=== PATIENT | female | born 1950 | race Caucasian/White ===

== ENCOUNTER → 2017-02-21 | Outpatient (REF) | payer MEDICARE, MEDICAID ==
[~2017-02-21] MED LIST: ALLO300T; ALPR0.25; ALPR0.25 PO; ASPI325T; ASPI81TA18 PO; ATEN100T; ATEN50TA2; ATOR40TA75; ATOR40TA75 PO; BUME1TA PO; BUME1TAB27 PO; CALC600T10; CARV6.25; CARV6.25 PO; COLA100C2; COLC0.6T; COUM1TAB17 PO; DIOV320T; FAMO1TAB11 PO; FAMO1TAB25 PO; FELDENE; FELO10TA; FERR325T; FLON0.05; FLON1SPR; FLUT1SPR2; FURO40TA2; HUMA75VL; INSUHUMDS SC; INSULANT; INSULANT SC; IRON65TA PO; ISOS60TA2; ISOS60TA2 PO; MAGN400T5 PO; METO5TA; METO5TA PO; MICR10CA PO; NITR0.4S; PANT40TA2 PO; PLAV75TA2; POTA10CA PO; POTA10TA67; ROSU10TA; THERGRAN; WARF-20; WARF4TAB52; ZYLO300T4 PO; glucovance
[2017-02-21 19:52] LABS: ALBUMIN 3.5 GM/DL (3.2-5.2); CALCIUM LEVEL 10.1 MG/DL (8.8-10.2); CREATININE FOR GFR 1.12 MG/DL (0.55-1.02); GLOMERULAR FILTRATION RATE 52.1 (>45); MAGNESIUM LEVEL 2.3 MG/DL (1.8-2.4); PHOSPHORUS LEVEL 3.4 MG/DL (2.5-4.9); POTASSIUM SERUM 3.6 MEQ/L (3.5-5.1)
== END ==
LOC: M SFHCCLAY 12:08
PROVIDERS: ATTEND Family Medicine
DX: I48.2 Chronic atrial fibrillation (principal); I27.81 Cor pulmonale (chronic); E83.42 Hypomagnesemia; E87.6 Hypokalemia; E11.9 Type 2 diabetes mellitus without complications; Z95.5 Presence of coronary angioplasty implant and graft
CPT/HCPCS: 80061; 80069; 83735; G0463

== ENCOUNTER 2017-03-29 12:15 | Inpatient (IN) | payer MEDICARE, MEDICAID ==
[~2017-03-29] VITALS: Ht 160 cm; Wt 107.7 kg
[~2017-03-29 12:15] MED LIST changes: -ALPR0.25; -ALPR0.25 PO; -ASPI81TA18 PO; -ATOR40TA75; -ATOR40TA75 PO; -BUME1TA PO; -BUME1TAB27 PO; -CARV6.25; -CARV6.25 PO; -COUM1TAB17 PO; -FAMO1TAB11 PO; -FAMO1TAB25 PO; -FLON1SPR; -FLUT1SPR2; -INSUHUMDS SC; -INSULANT SC; -IRON65TA PO; -ISOS60TA2; -ISOS60TA2 PO; -MAGN400T5 PO; -METO5TA; -METO5TA PO; -MICR10CA PO; -PANT40TA2 PO; -POTA10CA PO; -POTA10TA67; -WARF-20; -WARF4TAB52; -ZYLO300T4 PO
[2017-03-29] MEDS ORDERED: ATOR40TA75 (12:45)
[2017-03-29] MEDS ORDERED: BUME1TAB27 PO (12:45)
[2017-03-29] MEDS ORDERED: WARF4TAB52 (12:45)
[2017-03-29] MEDS ORDERED: CARV6.25 (12:45)
[2017-03-29] MEDS ORDERED: METO5TA (12:45)
[2017-03-29] MEDS ORDERED: POTA10TA67 (12:45)
[2017-03-29] MEDS ORDERED: FLUT1SPR2 (12:45)
[2017-03-29] MEDS ORDERED: FAMO1TAB25 PO (12:45)
[2017-03-29] MEDS ORDERED: ALPR0.25 (12:45)
[2017-03-29] MEDS ORDERED: ISOS60TA2 (12:45)
[2017-03-29] MEDS ORDERED: WARF-20 (12:45)
[2017-03-29 12:51] LABS: BASO # 0.1 K/mm3 (0.0-0.2); BASO % 0.7 % (0.0-1.0); EOS # 0.2 K/mm3 (0.0-0.50); EOS % 2.5 % (0.0-3.0); LARGE UNSTAINED CELL # 0.1 K/mm3 (0.0-0.4); LARGE UNSTAINED CELL % 1.3 % (0.0-4.0); LYMPH # 1.6 K/mm3 (1.5-4.5); LYMPH % 15.7 % (24.0-44.0); MEAN CORPUSCULAR HEMOGLOBIN 26.6 pg (27.0-33.0); MEAN CORPUSCULAR HGB CONC 29.1 g/dl (32.0-36.5); MEAN CORPUSCULAR VOLUME 91.4 fl (80.0-96.0); MONO # 0.5 K/mm3 (0.0-0.8); MONO % 5.5 % (0.0-5.0); NEUTROPHILS # 6.9 K/mm3 (1.8-7.7); NEUTROPHILS % 74.3 % (36.0-66.0); PLATELET COUNT, AUTOMATED 443 k/mm3 (150-450); RED CELL DISTRIBUTION WIDTH 21.4 % (11.5-14.5); WHITE BLOOD COUNT 9.3 K/mm3 (4.0-10.0)
[2017-03-29 12:52] LABS: INR 2.59
[2017-03-29 13:09] LABS: ADD MORPHOLOGY? YES; ANISOCYTOSIS 2+; HYPOCHROMASIA 1+
[2017-03-29 13:12] LABS: ALBUMIN 3.1 GM/DL (3.2-5.2); ALBUMIN/GLOBULIN RATIO 0.97 (1.00-1.93); BILIRUBIN,DIRECT 0.2 MG/DL (0.0-0.2); BILIRUBIN,TOTAL 0.3 MG/DL (0.2-1.0); CALCIUM LEVEL 8.8 MG/DL (8.8-10.2); CREATININE FOR GFR 1.64 MG/DL (0.55-1.02); GLOMERULAR FILTRATION RATE 33.6 (>45); POTASSIUM SERUM 3.6 MEQ/L (3.5-5.1); TOTAL PROTEIN 6.3 GM/DL (6.4-8.2)
--- NOTE | 2017-03-29 13:24 | REP ---
Portable chest x-ray: Single view. History: Chest pain. Comparison study: May 09, 2012. Findings: EKG monitoring electrodes overlie the chest. The heart is moderately enlarged unchanged. Pulmonary vasculature is somewhat cephalized. The pleural angles are sharp. There is no evidence of infiltrate, pleural effusion, or pulmonary edema. Impression: Moderate cardiomegaly and pulmonary vascular cephalization. Mild CHF pattern. Signed by Broderick Ennis MD 03/29/2017 03:50 P
[2017-03-29 15:22] LABS: PERCENT SATURATION 4.7 % (13.2-45.0)
[2017-03-29] MEDS ORDERED: GI COCKTAIL 50ML BTL(HYOSCYAMINE/MAALOX/LIDOCAINE VISCOUS)(1:3:1) PO ONE (15:45)
--- NOTE | 2017-03-29 16:04 | HPE ---
DATE OF ADMISSION: 03/29/2017 History and physical generated through office E-Clinical works record and a copy of this has been placed on the patient's chart.
[2017-03-29] MEDS ORDERED: FLON1SPR (16:57)
[2017-03-29] MEDS ORDERED: ATOR40TA75 PO (16:57)
[2017-03-29] MEDS ORDERED: ISOS60TA2 PO (16:57)
[2017-03-29] MEDS ORDERED: POTA10CA PO (16:57)
[2017-03-29] MEDS ORDERED: MAGN400T5 PO (16:57)
[2017-03-29] MEDS ORDERED: BUME1TA PO (16:57)
[2017-03-29] MEDS ORDERED: INSUHUMDS SC (16:57)
[2017-03-29] MEDS ORDERED: FAMO1TAB11 PO (16:57)
[2017-03-29] MEDS ORDERED: ZYLO300T4 PO (16:57)
[2017-03-29] MEDS ORDERED: METO5TA PO (16:57)
[2017-03-29] MEDS ORDERED: COUM1TAB17 PO (16:57)
[2017-03-29] MEDS ORDERED: INSULANT SC (16:57)
[2017-03-29] MEDS ORDERED: CARV6.25 PO (16:57)
[2017-03-29] MEDS ORDERED: IRON65TA PO (16:57)
[2017-03-29] MEDS ORDERED: ALPR0.25 PO (16:57)
[2017-03-29] MEDS ORDERED: WARFARIN SOD 5 MG TAB PO SCH (17:00)
[2017-03-29] MEDS ORDERED: GLUCOSE 4 GM CHEW TABLET PO PRN (17:30)
[2017-03-29] MEDS ORDERED: GLUCAGON FOR INJ 1 MG VIAL (J1610) SC PRN (17:30)
[2017-03-29] MEDS ORDERED: DEXTROSE 50% 50 ML SYRINGE IV PRN (17:30)
[2017-03-29 19:30] VITALS: BP 131/68
[2017-03-29] MEDS: HumaLOG INSULIN (NovoLOG) PER UNIT SC SCH ×2 (19:52→21:49)
[2017-03-29] MEDS: LEVEMIR (INSULIN DETEMIR) 1 UNITS/0.01ML SC SCH (21:40)
[2017-03-29] MEDS: MAGNESIUM OXIDE 400 MG TAB (MAG-OX) PO SCH (21:41)
[2017-03-29] MEDS: ATORVASTATIN 20 MG TAB PO SCH (21:41)
[2017-03-29] MEDS: ALLOPURINOL 300 MG TAB PO SCH (21:41)
[2017-03-29] MEDS: ISOSORBIDE MON. (IMDUR) 60 MG XR TAB PO SCH (21:42)
[2017-03-29] MEDS: metOLazone 5 MG TAB PO SCH (21:42)
[2017-03-29] MEDS: BUMETANIDE 1 MG TAB PO SCH (21:42)
[2017-03-29] MEDS: CARVedilol 6.25 MG TAB PO SCH (21:43)
[2017-03-29] MEDS: FERROUS SULFATE 325MG TAB PO SCH (21:43)
[2017-03-29] MEDS: POTASSIUM CHLORIDE 10 MEQ SR TABLET PO SCH (21:48)
[2017-03-30 04:00] VITALS: BP 140/66
[2017-03-30] MEDS: HumaLOG INSULIN (NovoLOG) PER UNIT SC SCH ×4 (07:30→21:00)
--- NOTE | 2017-03-30 07:46 | ECGEPIP ---
Stationary ECG Study [facility] - ED Test Date: 2017-03-29 Pat Name: WALLACE TINEO Department: Room: - Gender: F Erosion Control Specialist: JT : 1950 Requested By: Oralia Palacio Order Number: [id number] Reading MD: Oralia Palacio Measurements Intervals [place] Rate: 66 P: OK: 0 QRS: -9 QRSD: 92 T: 14 QT: 433 QTc: 457 Interpretive Statements ATRIAL FLUTTER/FIB MODERATE ST DEPRESSION NO PRIOR FOR COMPARISON Electronically Signed On 03-30-2017 7:46:44 EDT by Oralia Palacio
[2017-03-30] MEDS: LEVEMIR (INSULIN DETEMIR) 1 UNITS/0.01ML SC SCH ×2 (09:00→21:11)
[2017-03-30] MEDS: metOLazone 5 MG TAB PO SCH ×2 (09:02→21:09)
[2017-03-30] MEDS: MAGNESIUM OXIDE 400 MG TAB (MAG-OX) PO SCH ×2 (09:02→21:09)
[2017-03-30] MEDS: BUMETANIDE 1 MG TAB PO SCH ×2 (09:02→21:05)
[2017-03-30] MEDS: ISOSORBIDE MON. (IMDUR) 60 MG XR TAB PO SCH ×2 (09:03→21:05)
[2017-03-30] MEDS: FAMOTIDINE 20 MG TAB PO SCH (09:03)
[2017-03-30] MEDS: CARVedilol 6.25 MG TAB PO SCH ×2 (09:03→21:04)
[2017-03-30] MEDS: POTASSIUM CHLORIDE 10 MEQ SR TABLET PO SCH ×2 (09:03→21:09)
[2017-03-30 09:26] LABS: MEAN CORPUSCULAR HEMOGLOBIN 27.3 pg (27.0-33.0); MEAN CORPUSCULAR HGB CONC 30.3 g/dl (32.0-36.5); RED CELL DISTRIBUTION WIDTH 21.6 % (11.5-14.5); WHITE BLOOD COUNT 9.9 K/mm3 (4.0-10.0)
[2017-03-30 09:36] LABS: INR 2.12
[2017-03-30 09:59] LABS: CALCIUM LEVEL 9.2 MG/DL (8.8-10.2); CREATININE FOR GFR 1.51 MG/DL (0.55-1.02); GLOMERULAR FILTRATION RATE 36.9 (>45); POTASSIUM SERUM 4.6 MEQ/L (3.5-5.1)
[2017-03-30] MEDS ORDERED: BUME1TA PO (11:56)
--- NOTE | 2017-03-30 12:34 | DSES ---
DATE OF ADMISSION: 03/29/2017 DATE OF DISCHARGE: 03/30/17 PRIMARY CARE PROVIDER: Dr. Tr Malik. This is a 66-year-old female who presented to [facility] emergency department (ED) for atypical chest pain. The patient was found to have some significant anemia with a hemoglobin of 7.3 and hematocrit of 25.1. The patient insisted on staying for a blood transfusion inpatient. She was subsequently admitted and received two units of pack red cells with significant improvement. Hemoglobin post transfusion at 9:00 a.m. was 9.3 with a hematocrit of 30.5. Electrolytes have remained stable. Patient's creatinine is 1.51. The patient's insulin was held secondary to some lower blood sugars. On physical exam, vital signs are stable. She is afebrile. HEENT: Neck is supple without lymphadenopathy or jugular venous distention. Cardiovascular: Heart regular rhythm and regular. Pulmonary: Lungs are clear. Abdomen is soft and nontender. Bilateral lower extremities without edema. ASSESSMENT: DISCHARGE DIAGNOSIS: anemia: unknown etiology SECONDARY DIAGNOSES: Hypertension. Diabetes. Gastroesophageal reflux disease (GERD). History of a myocardial infarction (SD). Coronary artery disease. Chronic atrial fibrillation. Chronic kidney disease. Chronic respiratory failure with hypoxia. Cor pulmonale. Pulmonary hypertension. Systolic and diastolic congestive heart failure. Severe concentric right ventricular hypertrophy. PLAN: The patient will be discharged to home. Diet is carbohydrate consistent, 2 gram sodium. Activity is as tolerated. She will continue with her 2 liters nasal cannula at home. MEDICATIONS: - allopurinol 300 mg by mouth nightly - alprazolam 0.25 mg by mouth every 6 hours as needed for anxiety - atorvastatin calcium 40 mg by mouth nightly - bumetanide 1 mg by mouth twice a day - carvedilol 6.25 mg by mouth twice a day - famotidine 20 mg by mouth daily - Flonase allergy relief two sprays to each nostril daily as needed allergies - Lantus 50 units subcu twice a day - Iron 325 by mouth nightly - isosorbide mononitrate 50 mg by mouth twice a day - Magnesium oxide 400 mg by mouth twice a day - metolazone 5 mg by mouth twice a day - potassium chloride 20 mEq by mouth twice a day - Warfarin sodium 5 mg by mouth nightly. The patient is to see her primary care provider within the next 3 days. She is to have a CBC in 3 days. The patient verbalized understanding and in agreement with the plan. The patient is discharged in stable and satisfactory condition with no further questions at the time of discharge. MAGDA
[2017-03-30] MEDS: ALPRAZolam 0.25 MG TAB PO PRN ×2 (12:36→21:03)
[2017-03-30 14:00] VITALS: BP 147/61
--- NOTE | 2017-03-30 15:12 | IPNPDOC ---
Subjective Date Seen The patient was seen on 03/30/17. Subjective Chief Complaint/HPI The patient is a 66-year-old female admitted with a reason for visit of Anemia. General: Denies: Chills Eyes: Denies: Pain Pulmonary: Reports: Dyspnea, Denies: Cough Cardiovascular: Denies: Chest Pain, Palpitations Gastrointestinal: Denies: Nausea, Vomiting, Diarrhea Genitourinary: Denies: Dysuria Objective Physical Examination General Exam: Positive: Alert Neck Exam: Negative: JVD Chest Exam: Positive: Clear to auscultation Heart Exam: Positive: Rate Normal Abdomen Exam: Positive: BS Hyperactive Extremity Exam: Negative: Edema Psych Exam: Positive: Mental status NL Assessment /Plan Problems (1) Fe deficiency anemia Problem Text: given active bleeding-VKA is contraindicated; therefore, will be stopped. Given 2 recent MIs (12/2016, 02/2017), would not pursue EGD/colonoscopy , but will check UGISBFT, DCBE for obvious bleeding source and monitor hgb to assure stable before dc (will be permanently moving to [place], [place] in next ~ 1M c daughter). + PPI to baseline Pepcid (has been on since last active peptic ulcer) 2M h/o melanotic stools c increased CHAVARRIA h/o PUD 03/30 9.3 03/29 hgb 7.3-therefore, tx 2u PRBCs 12/2010 hgb 14.6 (previous hgb in [place]) 03/29 % sat 5 02/2006 EGD [facility] Dr. Cedillo-atrophic gastritis last colonoscopy per patient >12Y-none in [place] (2) RICKY (acute kidney injury) Status: Acute Problem Text: favor 2 hypovolemia 03/30 39/1.5, K 4.6 baseline cr ~1.2 (3) CAD (coronary artery disease) Status: Chronic Response to Treatment: Stable Problem Text: 02/13/17 [facility] chest pain c "mild" T-I elevation, stable CAD c patent proximal CX, 1 marginal stents (dominant RCA c 50% mid stenosis and 50% PDA) (4) Diastolic CHF Status: Chronic Problem Text: Euvolemic on HD bumet 1 BID, metol 5 BID, K 20 BID, MOX 400 BID (5) Atrial fibrillation Status: Chronic Response to Treatment: Stable Problem Specific Plan: Consult Specialist Problem Text: chronic VKA for anticoag carvedilol .25 BID for rate control 03/30 INR 2.1; therefore, hold VKA for EGD/colon (6) Pulmonary hypertension Status: Chronic Problem Text: 12/2016 R heart cath at [place] peak systolic P 100! 12/2016 VQ scan low prob (7) T2DM (type 2 diabetes mellitus) Status: Chronic Response to Treatment: Stable Problem Text: stable control on Levemir 20 BID c SSNI HD Lantus 50 BID Plan/VTE VTE Prophylaxis Ordered?: No VTE Exclusion Pharmacological: Hemorrhage VS, I&O, 24H, Fishbone Vital Signs/I&O Vital Signs Date Time Temp Pulse Resp B/P (MAP) Pulse Ox O2 Delivery O2 Flow Rate FiO2 03/30/17 14:00 97.1 69 20 147/61 (89) 96 Nasal Cannula 2.0 I&O- Last 24 Hours up to 6 AM 03/30/17 05:59 Intake Total 300 ml Output Total 1000 ml Balance -700 ml Laboratory Data 24H LABS Laboratory Tests 2 03/29/17 15:43: Bedside Glucose (Misc Panel) 77L 03/29/17 20:54: Bedside Glucose (Misc Panel) 126H 03/30/17 07:28: Bedside Glucose (Misc Panel) 106 03/30/17 09:10: Prothrombin Time 24.5H, Prothromb Time International Ratio 2.12, Anion Gap 11, Glomerular Filtration Rate 36.9L, Blood Urea Nitrogen 39H, Creatinine 1.51H, Sodium Level 145, Potassium Level 4.6#, Chloride Level 105, Carbon Dioxide Level 29, Calcium Level 9.2 03/30/17 11:26: Bedside Glucose (Misc Panel) 160H CBC/BMP Laboratory Tests 03/30/17 09:10 Red Blood Count 3.39 L, Mean Corpuscular Volume 90.0, Mean Corpuscular Hemoglobin 27.3, Mean Corpuscular Hemoglobin Concent 30.3 L, Red Cell Distribution Width 21.6 H, Calcium Level 9.2 Oswald Goncalves M.D. Mar 30, 2017 15:12
[2017-03-30] MEDS: FLUTICASONE PROP 0.05% NASAL SPRAY 16 GM (FLONASE) SCH (15:18)
[2017-03-30 15:58] LABS: RETICULOCYTE % 3.4 % (0.5-1.5)
[2017-03-30 16:14] LABS: VITAMIN B12 LEVEL 597 PG/ML (247-911)
[2017-03-30 16:15] LABS: FERRITIN 32 NG/ML (8-252); TOTAL PROTEIN 6.4 GM/DL (6.4-8.2)
[2017-03-30 16:35] VITALS: BP 144/74
[2017-03-30] MEDS: FERROUS SULFATE 325MG TAB PO SCH (21:03)
[2017-03-30] MEDS: NYSTATIN 100,000 UNITS/GM TOPICAL PWD 15 GM TOP SCH (21:03)
[2017-03-30] MEDS: ALLOPURINOL 300 MG TAB PO SCH (21:04)
[2017-03-30] MEDS: ATORVASTATIN 20 MG TAB PO SCH (21:05)
[2017-03-30] MEDS: PANTOPRAZOLE 40MG TAB (PROTONIX) PO SCH (21:09)
[2017-03-30 22:00] VITALS: BP 164/72
[2017-03-31 06:00] VITALS: BP 166/70
[2017-03-31 06:41] LABS: INR 1.91
[2017-03-31 06:44] LABS: MEAN CORPUSCULAR HEMOGLOBIN 26.8 pg (27.0-33.0); MEAN CORPUSCULAR HGB CONC 29.7 g/dl (32.0-36.5); MEAN CORPUSCULAR VOLUME 90.4 fl (80.0-96.0); RED CELL DISTRIBUTION WIDTH 22.2 % (11.5-14.5); WHITE BLOOD COUNT 11.2 K/mm3 (4.0-10.0)
[2017-03-31 06:45] LABS: CALCIUM LEVEL 9.5 MG/DL (8.8-10.2); CREATININE FOR GFR 1.29 MG/DL (0.55-1.02); GLOMERULAR FILTRATION RATE 44.3 (>45); MAGNESIUM LEVEL 1.9 MG/DL (1.8-2.4); POTASSIUM SERUM 3.6 MEQ/L (3.5-5.1)
[2017-03-31] MEDS: LEVEMIR (INSULIN DETEMIR) 1 UNITS/0.01ML SC SCH ×2 (09:00→22:07)
[2017-03-31] MEDS ORDERED: INFLUENZA QUADRIVALENT PF VACCINE 0.5ML SYRINGE (90686) IM ONE (09:00)
[2017-03-31] MEDS: BUMETANIDE 1 MG TAB PO SCH ×2 (09:03→22:08)
[2017-03-31] MEDS: POTASSIUM CHLORIDE 10 MEQ SR TABLET PO SCH ×3 (09:03→22:08)
[2017-03-31] MEDS: metOLazone 5 MG TAB PO SCH ×2 (09:04→22:08)
[2017-03-31] MEDS: MAGNESIUM OXIDE 400 MG TAB (MAG-OX) PO SCH ×2 (09:04→22:10)
[2017-03-31] MEDS: FAMOTIDINE 20 MG TAB PO SCH (09:04)
[2017-03-31] MEDS: CARVedilol 6.25 MG TAB PO SCH ×2 (09:04→22:11)
[2017-03-31] MEDS: ISOSORBIDE MON. (IMDUR) 60 MG XR TAB PO SCH ×2 (09:05→22:09)
[2017-03-31] MEDS: HumaLOG INSULIN (NovoLOG) PER UNIT SC SCH ×4 (09:05→21:00)
[2017-03-31] MEDS: FLUTICASONE PROP 0.05% NASAL SPRAY 16 GM (FLONASE) SCH (09:06)
[2017-03-31] MEDS: NYSTATIN 100,000 UNITS/GM TOPICAL PWD 15 GM TOP SCH ×4 (09:07→22:10)
[2017-03-31] MEDS: ALPRAZolam 0.25 MG TAB PO PRN ×3 (09:15→22:10)
[2017-03-31 14:00] VITALS: BP_SYST 169
--- NOTE | 2017-03-31 15:46 | IPNPDOC ---
Subjective Date Seen The patient was seen on 03/31/17. Subjective Chief Complaint/HPI The patient is a 66-year-old female admitted with a reason for visit of Anemia. Constitutional: Denies: Chills Eyes: Denies: Pain ENT: Denies: Head Aches Pulmonary: Denies: Cough Cardiovascular: Denies: Chest Pain, Palpitations Gastrointestinal: Denies: Nausea, Vomiting Genitourinary: Denies: Dysuria Objective Physical Examination General Exam: Positive: Alert Neck Exam: Negative: JVD Chest Exam: Positive: Clear to auscultation Heart Exam: Positive: Rate Normal Abdomen Exam: Positive: BS Hyperactive Extremity Exam: Negative: Edema Psych Exam: Positive: Mental status NL Assessment /Plan Problems (1) Fe deficiency anemia Problem Text: given active bleeding-VKA is contraindicated; therefore, will be stopped. Given 2 recent MIs (12/2016, 02/2017), would not pursue EGD/colonoscopy , but will check UGISBFT, DCBE for obvious bleeding source and monitor hgb to assure stable before dc (will be permanently moving to [place], [place] in next ~ 1M c daughter). + PPI to baseline Pepcid (has been on since last active peptic ulcer) 2M h/o melanotic stools c increased CHAVARRIA h/o PUD 03/31 9.0-+ Venofer 03/30 9.3 03/29 hgb 7.3-therefore, tx 2u PRBCs 12/2010 hgb 14.6 (previous hgb in [place]) 03/29 % sat 5/ferritin 32 03/30 abs retic 112! 03/30 B12 597 03/30 H pylori Ab 03/30 SPEP 03/31 heme occult + stool 03/31 UGISBFT 02/2006 EGD [facility] Dr. Cedillo-atrophic gastritis last colonoscopy per patient >12Y-none in [place] (2) RICKY (acute kidney injury) Status: Acute Problem Text: favor 2 hypovolemia 03/31 30/1.3, 3.6 03/30 39/1.5, K 4.6 baseline cr ~1.2 (3) CAD (coronary artery disease) Status: Chronic Response to Treatment: Stable Problem Text: 02/13/17 [facility] chest pain c "mild" T-I elevation, stable CAD c patent proximal CX, 1 marginal stents (dominant RCA c 50% mid stenosis and 50% PDA) (4) Diastolic CHF Status: Chronic Problem Text: Euvolemic on HD bumet 1 BID, metol 5 BID 03/31 K 3.6, Mg 1.9; therefore, K 20 BID to 20 TID and continue MOX 400 BID (5) Atrial fibrillation Status: Chronic Response to Treatment: Stable Problem Specific Plan: Consult Specialist Problem Text: chronic VKA for anticoag carvedilol 6.25 BID for rate control 03/30 INR 2.1; therefore, hold VKA for EGD/colon (6) Pulmonary hypertension Status: Chronic Problem Text: 12/2016 R heart cath at [place] peak systolic P 100! 12/2016 VQ scan low prob (7) T2DM (type 2 diabetes mellitus) Status: Chronic Response to Treatment: Stable Problem Text: stable control on Levemir 20 BID c SSNI HD Lantus 50 BID Plan/VTE VTE Prophylaxis Ordered?: No VTE Exclusion Pharmacological: Hemorrhage VS, I&O, 24H, Fishbone Vital Signs/I&O Vital Signs Date Time Temp Pulse Resp B/P (MAP) Pulse Ox O2 Delivery O2 Flow Rate FiO2 03/31/17 14:00 98.3 74 18 169/ 56 96 Nasal Cannula 2.0 I&O- Last 24 Hours up to 6 AM 03/31/17 06:00 Intake Total 480 ml Output Total 1700 ml Balance -1220 ml Laboratory Data 24H LABS Laboratory Tests 2 03/30/17 17:09: Bedside Glucose (Misc Panel) 240H 03/30/17 20:52: Bedside Glucose (Misc Panel) 247H 03/31/17 05:55: Prothrombin Time 22.5H, Prothromb Time International Ratio 1.91, Anion Gap 10, Glomerular Filtration Rate 44.3L, Blood Urea Nitrogen 30H, Creatinine 1.29H, Sodium Level 140, Potassium Level 3.6#, Chloride Level 102, Carbon Dioxide Level 28, Calcium Level 9.5, Magnesium Level 1.9 03/31/17 11:27: Bedside Glucose (Misc Panel) 306H CBC/BMP Laboratory Tests 03/31/17 05:55 Red Blood Count 3.34 L, Mean Corpuscular Volume 90.4, Mean Corpuscular Hemoglobin 26.8 L, Mean Corpuscular Hemoglobin Concent 29.7 L, Red Cell Distribution Width 22.2 H, Calcium Level 9.5 Microbiology Microbiology 03/31/17 Stool Occult Blood (SASHA) - Final, Complete Oswald Goncalves M.D. Mar 31, 2017 15:46
[2017-03-31] MEDS ORDERED: LORazepam 0.5 MG TAB PO PRN (16:30)
[2017-03-31] MEDS ORDERED: GASTROGRAFIN SOLUTION 30ML (Q9963) PO ONE (17:00)
[2017-03-31] MEDS ORDERED: GASTROGRAFIN SOLUTION 30ML PO ONE (17:30)
[2017-03-31] MEDS ORDERED: ISOVUE-370 76% 100ML VIAL (Q9967) As Ordered ONE (18:25)
--- NOTE | 2017-03-31 19:02 | REP ---
Clinical: Abdominal pain. Technique: Axial contrast enhanced images from the lung bases to the pubic symphysis using oral and 100 ml Isovue 370 intravenous contrast material with precontrast images of the abdomen as well as coronal and sagittal re-formations. Comparison: 10/08/2009. Findings: Lung bases demonstrate mild chronic changes and 4 mm right lower lobe calcified granuloma. Liver, spleen, pancreas, and bilateral adrenal glands are relatively normal. The subtle previously identified scattered hepatic lesions are not visualized by current examination neither precontrast or contrast enhanced series. The kidneys demonstrate mild age-related cortical atrophic change and few scattered parapelvic cysts without perinephric stranding or hydronephrosis. The enteric system is without obstruction or acute inflammatory process. Sigmoid diverticulosis noted without acute diverticulitis. Pelvis demonstrates normal bladder and age-appropriate uterus/adnexa. No pelvic fluid or ascites. No obvious adenopathy. No mass lesion. Atherosclerotic changes to the vasculature noted without aortic aneurysm. Musculoskeletal structures demonstrate age-related degenerative changes. Subcutaneous edema along the anterior and right lateral abdominopelvic wall is nonspecific. Impression: 1. No acute abdominopelvic pathology appreciated. 2. Sigmoid diverticulosis without acute diverticulitis. 3. Liver enhancement is somewhat heterogeneous which may be secondary to timing of image acquisition and the previously noted hepatic lesions are not visualized by current CT. 4. Edematous changes within the subcutaneous tissues of the anterior and right lateral abdominopelvic wall of uncertain significance. 5. Further acute chronic changes as described above. 6. No ascites, adenopathy or obvious mass lesion. Signed by Cory Bartlett MD 03/31/2017 06:54 P
[2017-03-31 22:00] VITALS: BP 172/80
[2017-03-31] MEDS: FERROUS SULFATE 325MG TAB PO SCH (22:09)
[2017-03-31] MEDS: ATORVASTATIN 20 MG TAB PO SCH (22:09)
[2017-03-31] MEDS: ALLOPURINOL 300 MG TAB PO SCH (22:10)
[2017-03-31] MEDS: PANTOPRAZOLE 40MG TAB (PROTONIX) PO SCH (22:10)
[2017-04-01] MEDS: ALPRAZolam 0.25 MG TAB PO PRN ×3 (05:24→18:31)
[2017-04-01 06:00] VITALS: BP 112/58
[2017-04-01 06:21] LABS: INR 1.54
[2017-04-01 06:23] LABS: MEAN CORPUSCULAR HEMOGLOBIN 27.8 pg (27.0-33.0); MEAN CORPUSCULAR HGB CONC 30.9 g/dl (32.0-36.5); MEAN CORPUSCULAR VOLUME 89.8 fl (80.0-96.0); RED CELL DISTRIBUTION WIDTH 22.1 % (11.5-14.5); WHITE BLOOD COUNT 11.1 K/mm3 (4.0-10.0)
[2017-04-01 06:33] LABS: ALBUMIN/GLOBULIN RATIO 0.81 (1.00-1.93); BILIRUBIN,DIRECT 0.2 MG/DL (0.0-0.2); BILIRUBIN,TOTAL 0.5 MG/DL (0.2-1.0); CALCIUM LEVEL 9.4 MG/DL (8.8-10.2); CREATININE FOR GFR 1.31 MG/DL (0.55-1.02); GLOMERULAR FILTRATION RATE 43.5 (>45); POTASSIUM SERUM 3.6 MEQ/L (3.5-5.1); TOTAL PROTEIN 6.7 GM/DL (6.4-8.2)
[2017-04-01] MEDS: HumaLOG INSULIN (NovoLOG) PER UNIT SC SCH ×4 (08:52→22:06)
[2017-04-01] MEDS: POTASSIUM CHLORIDE 10 MEQ SR TABLET PO SCH ×3 (08:52→22:03)
[2017-04-01] MEDS: BUMETANIDE 1 MG TAB PO SCH ×2 (08:52→22:04)
[2017-04-01] MEDS: MAGNESIUM OXIDE 400 MG TAB (MAG-OX) PO SCH ×2 (08:53→22:03)
[2017-04-01] MEDS: ISOSORBIDE MON. (IMDUR) 60 MG XR TAB PO SCH ×2 (08:53→22:04)
[2017-04-01] MEDS: CARVedilol 6.25 MG TAB PO SCH ×2 (08:53→22:03)
[2017-04-01] MEDS: FLUTICASONE PROP 0.05% NASAL SPRAY 16 GM (FLONASE) SCH (08:54)
[2017-04-01] MEDS: FAMOTIDINE 20 MG TAB PO SCH (08:54)
[2017-04-01] MEDS: metOLazone 5 MG TAB PO SCH ×2 (08:54→22:05)
[2017-04-01] MEDS: LEVEMIR (INSULIN DETEMIR) 1 UNITS/0.01ML SC SCH ×2 (08:54→22:05)
[2017-04-01] MEDS: NYSTATIN 100,000 UNITS/GM TOPICAL PWD 15 GM TOP SCH ×4 (08:55→21:00)
[2017-04-01 14:00] VITALS: BP 151/70
--- NOTE | 2017-04-01 14:54 | IPNPDOC ---
Subjective Date Seen The patient was seen on 04/01/17. Subjective Chief Complaint/HPI The patient is a 66-year-old female admitted with a reason for visit of Anemia. Constitutional: Denies: Chills, Fever Eyes: Denies: Pain ENT: Denies: Head Aches Skin: Denies: Rash Pulmonary: Denies: Dyspnea Cardiovascular: Denies: Chest Pain, Palpitations Gastrointestinal: Denies: Nausea Genitourinary: Denies: Dysuria Objective Physical Examination General Exam: Positive: Alert Neck Exam: Negative: JVD Chest Exam: Positive: Clear to auscultation Heart Exam: Positive: Rate Normal Abdomen Exam: Positive: BS Hyperactive Extremity Exam: Negative: Edema Psych Exam: Positive: Mental status NL Assessment /Plan Problems (1) Fe deficiency anemia Problem Text: given active bleeding-VKA is contraindicated; therefore, will be stopped. Given 2 recent MIs (12/2016, 02/2017), would not pursue EGD/colonoscopy , but will check UGISBFT, DCBE for obvious bleeding source and monitor hgb to assure stable before dc (will be permanently moving to [place], [place] in next ~ 1M c daughter). + PPI to baseline Pepcid (has been on since last active peptic ulcer) 2M h/o melanotic stools c increased CHAVARRIA h/o PUD 04/01 9.2 03/31 9.0-+ Venofer 03/30 9.3 03/29 hgb 7.3-therefore, tx 2u PRBCs 12/2010 hgb 14.6 (previous hgb in [place]) 03/29 % sat 5/ferritin 32 03/30 abs retic 112! 03/30 B12 597 03/30 H pylori Ab 03/30 SPEP 03/31 heme occult + stool 03/31 CT AP IV/PO contrast: No acute abdominopelvic pathology appreciated. 2. Sigmoid diverticulosis without acute diverticulitis. 3. Liver enhancement is somewhat heterogeneous which may be secondary to timing of image acquisition and the previously noted hepatic lesions are not visualized by current CT. 04/02 UGISBFT planned 02/2006 EGD [facility] Dr. Cedillo-atrophic gastritis last colonoscopy per patient >12Y-none in [place] (2) RICKY (acute kidney injury) Status: Acute Problem Text: favor 2 hypovolemia 04/01 26/1.3, 3.6 03/31 30/1.3, 3.6 03/30 39/1.5, K 4.6 baseline cr ~1.2 (3) CAD (coronary artery disease) Status: Chronic Response to Treatment: Stable Problem Text: 02/13/17 [facility] chest pain c "mild" T-I elevation, stable CAD c patent proximal CX, 1 marginal stents (dominant RCA c 50% mid stenosis and 50% PDA) (4) Diastolic CHF Status: Chronic Problem Text: Euvolemic on HD bumet 1 BID, metol 5 BID 03/31 K 3.6, Mg 1.9; therefore, K 20 BID to 20 TID and continue MOX 400 BID (5) Atrial fibrillation Status: Chronic Response to Treatment: Stable Problem Specific Plan: Consult Specialist Problem Text: chronic VKA for anticoag carvedilol 6.25 BID for rate control 03/30 INR 2.1; therefore, hold VKA for EGD/colon (6) Pulmonary hypertension Status: Chronic Problem Text: 12/2016 R heart cath at [place] peak systolic P 100! 12/2016 VQ scan low prob (7) T2DM (type 2 diabetes mellitus) Status: Chronic Response to Treatment: Stable Problem Text: HD Lantus 50 BID 04/01 AC BG ~mid 200s; therefore, Levemir 20 BID to 32 BID c SSNI (8) Physical deconditioning Status: Acute Problem Text: 04/01 PT eval not safe-plan home c services Plan/VTE VTE Prophylaxis Ordered?: No VTE Exclusion Pharmacological: Hemorrhage VS, I&O, 24H, Fishbone Vital Signs/I&O Vital Signs Date Time Temp Pulse Resp B/P (MAP) Pulse Ox O2 Delivery O2 Flow Rate FiO2 04/01/17 14:00 98.6 72 18 151/70 (97) 98 Nasal Cannula 2.0 I&O- Last 24 Hours up to 6 AM 04/01/17 06:00 Intake Total 1540 ml Output Total 1700 ml Balance -160 ml Laboratory Data 24H LABS Laboratory Tests 2 03/31/17 16:29: Bedside Glucose (Misc Panel) 260H 03/31/17 20:22: Bedside Glucose (Misc Panel) 235H 04/01/17 05:23: Prothrombin Time 18.9H, Prothromb Time International Ratio 1.54, Anion Gap 12, Glomerular Filtration Rate 43.5L, Calcium Level 9.4, Aspartate Amino Transf (AST /SGOT) 11L, Alanine Aminotransferase (ALT/SGPT) 18, Alkaline Phosphatase 170H, Total Bilirubin 0.5#, Direct Bilirubin 0.2, B-Type Natriuretic Peptide 145H, Total Protein 6.7, Albumin 3.0L, Albumin/Globulin Ratio 0.81L 04/01/17 11:31: Bedside Glucose (Misc Panel) 301H CBC/BMP Laboratory Tests 04/01/17 05:23 Red Blood Count 3.30 L, Mean Corpuscular Volume 89.8, Mean Corpuscular Hemoglobin 27.8, Mean Corpuscular Hemoglobin Concent 30.9 L, Red Cell Distribution Width 22.1 H Microbiology Microbiology 03/31/17 Stool Occult Blood (SASHA) - Final, Complete Oswald Goncalves M.D. Apr 01, 2017 14:54
[2017-04-01 22:00] VITALS: BP 158/71
[2017-04-01] MEDS: ATORVASTATIN 20 MG TAB PO SCH (22:03)
[2017-04-01] MEDS: PANTOPRAZOLE 40MG TAB (PROTONIX) PO SCH (22:04)
[2017-04-01] MEDS: FERROUS SULFATE 325MG TAB PO SCH (22:04)
[2017-04-01] MEDS: ALLOPURINOL 300 MG TAB PO SCH (22:04)
[2017-04-02] MEDS: ALPRAZolam 0.25 MG TAB PO PRN ×2 (00:37→14:34)
[2017-04-02 06:00] VITALS: BP 126/59
[2017-04-02 06:06] LABS: MEAN CORPUSCULAR HEMOGLOBIN 27.1 pg (27.0-33.0); MEAN CORPUSCULAR HGB CONC 29.8 g/dl (32.0-36.5); MEAN CORPUSCULAR VOLUME 91.2 fl (80.0-96.0); RED CELL DISTRIBUTION WIDTH 22.3 % (11.5-14.5)
[2017-04-02 06:12] LABS: INR 1.28
[2017-04-02 06:18] LABS: CALCIUM LEVEL 9.3 MG/DL (8.8-10.2); CREATININE FOR GFR 1.35 MG/DL (0.55-1.02); POTASSIUM SERUM 3.4 MEQ/L (3.5-5.1)
[2017-04-02] MEDS: HumaLOG INSULIN (NovoLOG) PER UNIT SC SCH ×4 (07:30→21:00)
[2017-04-02] MEDS: LEVEMIR (INSULIN DETEMIR) 1 UNITS/0.01ML SC SCH ×2 (09:00→21:00)
[2017-04-02] MEDS ORDERED: E-Z-PAQUE 96% w/w SUSP 176GM BTL As Ordered ONE (10:13)
[2017-04-02] MEDS ORDERED: E-Z-GAS II EFFERVESCENT PACKET (SODIUM BICARB./CITRIC ACID/SIMETHICONE) As Ordered ONE (10:13)
[2017-04-02] MEDS ORDERED: E-Z-HD 98% w/w 340GM SUSP BTL As Ordered ONE (10:13)
--- NOTE | 2017-04-02 11:21 | REP ---
KUB: Three views. History: Question bleeding. Comparison CT study March 31, 2017. Findings: There is extensive vascular calcification. Some CT barium is seen in a nondistended colon. No small bowel or large bowel dilation is observed. No mass or organomegaly is seen. Impression: Unremarkable bowel gas pattern. Signed by Broderick Ennis MD 04/02/2017 12:15 P
[2017-04-02] MEDS: FLUTICASONE PROP 0.05% NASAL SPRAY 16 GM (FLONASE) SCH (11:24)
[2017-04-02] MEDS: NYSTATIN 100,000 UNITS/GM TOPICAL PWD 15 GM TOP SCH ×4 (11:25→21:03)
[2017-04-02] MEDS: BUMETANIDE 1 MG TAB PO SCH ×2 (11:25→21:00)
[2017-04-02] MEDS: POTASSIUM CHLORIDE 10 MEQ SR TABLET PO SCH ×3 (11:26→21:02)
[2017-04-02] MEDS: MAGNESIUM OXIDE 400 MG TAB (MAG-OX) PO SCH ×2 (11:26→21:03)
[2017-04-02] MEDS: ISOSORBIDE MON. (IMDUR) 60 MG XR TAB PO SCH ×2 (11:26→21:01)
[2017-04-02] MEDS: FAMOTIDINE 20 MG TAB PO SCH (11:27)
[2017-04-02] MEDS: CARVedilol 6.25 MG TAB PO SCH ×2 (11:27→21:02)
[2017-04-02] MEDS: metOLazone 5 MG TAB PO SCH ×2 (11:27→21:03)
--- NOTE | 2017-04-02 11:38 | IPNPDOC ---
Subjective Date Seen The patient was seen on 04/02/17. Subjective Chief Complaint/HPI The patient is a 66-year-old female admitted with a reason for visit of Anemia. Events since last encounter Pt agitated as Radiology was unable to complete UGI as she still has barium present. She denies other concerns. General: Denies: Fatigue Constitutional: Denies: Chills, Fever Pulmonary: Denies: Dyspnea, Cough Cardiovascular: Denies: Chest Pain, Palpitations Gastrointestinal: Denies: Nausea, Vomiting, Diarrhea Neurological: Denies: Numbness Psych: Reports: Mood Normal Objective Physical Examination General Exam: Positive: Alert, No Acute Distress ENT Exam: Positive: Mucous membr. moist/pink Neck Exam: Negative: JVD Chest Exam: Positive: Clear to auscultation, Diminished Heart Exam: Positive: Rate Normal, Normal S1, Normal S2 Abdomen Exam: Positive: Normal bowel sounds, Soft, Other (obese), Negative: Tenderness Extremity Exam: Negative: Edema Psych Exam: Positive: Mental status NL Assessment /Plan Problems (1) Fe deficiency anemia Problem Text: 04/02 given active bleeding-VKA is contraindicated; therefore stopped. Given 2 recent MIs (12/2016, 02/2017), would not pursue EGD/colonoscopy , Failed UGISBFT today, moving bowels, await clearance of barium to repeat, obvious bleeding source and monitor hgb to assure stable before dc (will be permanently moving to [place], [place] in next ~1M c daughter). + PPI to baseline Pepcid (has been on since last active peptic ulcer) 2M h/o melanotic stools c increased CHAVARRIA h/o PUD 04/01 9.2 03/31 9.0-+ Venofer 03/30 9.3 03/29 hgb 7.3-therefore, tx 2u PRBCs 12/2010 hgb 14.6 (previous hgb in [place]) 03/29 % sat 5/ferritin 32 03/30 abs retic 112! 03/30 B12 597 03/30 H pylori Ab 03/30 SPEP 03/31 heme occult + stool 03/31 CT AP IV/PO contrast: No acute abdominopelvic pathology appreciated. 2. Sigmoid diverticulosis without acute diverticulitis. 3. Liver enhancement is somewhat heterogeneous which may be secondary to timing of image acquisition and the previously noted hepatic lesions are not visualized by current CT. 04/02 UGISBFT planned 02/2006 EGD [facility] Dr. Cedillo-atrophic gastritis last colonoscopy per patient >12Y-none in [place] (2) RICKY (acute kidney injury) Status: Acute Problem Text: favor 2 hypovolemia 04/01 26/1.3, 3.6 03/31 30/1.3, 3.6 03/30 39/1.5, K 4.6 baseline cr ~1.2 (3) CAD (coronary artery disease) Status: Chronic Response to Treatment: Stable Problem Text: 02/13/17 [facility] chest pain c "mild" T-I elevation, stable CAD c patent proximal CX, 1 marginal stents (dominant RCA c 50% mid stenosis and 50% PDA) (4) Diastolic CHF Status: Chronic Problem Text: Euvolemic on HD bumet 1 BID, metol 5 BID 03/31 K 3.6, Mg 1.9; therefore, K 20 BID to 20 TID and continue MOX 400 BID (5) Atrial fibrillation Status: Chronic Response to Treatment: Stable Problem Specific Plan: Consult Specialist Problem Text: chronic VKA for anticoag carvedilol 6.25 BID for rate control 03/30 INR 2.1; therefore, hold VKA for EGD/colon (6) Pulmonary hypertension Status: Chronic Problem Text: 12/2016 R heart cath at [place] peak systolic P 100! 12/2016 VQ scan low prob (7) T2DM (type 2 diabetes mellitus) Status: Chronic Response to Treatment: Stable Problem Text: HD Lantus 50 BID 04/01 AC BG ~mid 200s; therefore, Levemir 20 BID to 32 BID c SSNI (8) Physical deconditioning Status: Acute Problem Text: 04/01 PT eval not safe-plan home c services Plan/VTE VTE Prophylaxis Ordered?: No VTE Exclusion Pharmacological: Hemorrhage VS, I&O, 24H, Fishbone Vital Signs/I&O Vital Signs Date Time Temp Pulse Resp B/P (MAP) Pulse Ox O2 Delivery O2 Flow Rate FiO2 04/02/17 11:27 76 126/59 04/02/17 06:00 97.8 18 95 Nasal Cannula 2.0 I&O- Last 24 Hours up to 6 AM 04/02/17 06:00 Intake Total 960 ml Output Total 451 ml Balance 509 ml Laboratory Data 24H LABS Laboratory Tests 2 04/02/17 05:28: Prothrombin Time 16.3H, Prothromb Time International Ratio 1.28, Anion Gap 6L, Glomerular Filtration Rate 42.0L, Blood Urea Nitrogen 32H, Creatinine 1.35H, Sodium Level 137, Potassium Level 3.4L, Chloride Level 98, Carbon Dioxide Level 33H, Calcium Level 9.3 CBC/BMP Laboratory Tests 04/02/17 05:28 Red Blood Count 3.33 L, Mean Corpuscular Volume 91.2, Mean Corpuscular Hemoglobin 27.1, Mean Corpuscular Hemoglobin Concent 29.8 L, Red Cell Distribution Width 22.3 H, Calcium Level 9.3 Microbiology Microbiology 03/31/17 Stool Occult Blood (SASHA) - Final, Complete JOCELYNN ROBERT PA-C Apr 02, 2017 11:38
[2017-04-02 12:12] LABS: ALBUMIN 3.44 GM/DL (3.29-5.55); ALBUMIN % 53.8 % (55.8-66.1); GAMMA GLOBULIN % 10.9 % (11.1-18.8)
[2017-04-02 14:00] VITALS: BP 130/70
[2017-04-02] MEDS: PANTOPRAZOLE 40MG TAB (PROTONIX) PO SCH (21:00)
[2017-04-02] MEDS: ATORVASTATIN 20 MG TAB PO SCH (21:01)
[2017-04-02] MEDS: FERROUS SULFATE 325MG TAB PO SCH (21:01)
[2017-04-02] MEDS: ALLOPURINOL 300 MG TAB PO SCH (21:01)
[2017-04-03 06:00] VITALS: BP 122/57
[2017-04-03 06:40] LABS: MEAN CORPUSCULAR HEMOGLOBIN 27.4 pg (27.0-33.0); MEAN CORPUSCULAR HGB CONC 30.1 g/dl (32.0-36.5); RED CELL DISTRIBUTION WIDTH 22.2 % (11.5-14.5); WHITE BLOOD COUNT 10.2 K/mm3 (4.0-10.0)
[2017-04-03 06:42] LABS: INR 1.13
[2017-04-03 06:53] LABS: CALCIUM LEVEL 9.3 MG/DL (8.8-10.2); CREATININE FOR GFR 1.34 MG/DL (0.55-1.02); GLOMERULAR FILTRATION RATE 42.4 (>45); POTASSIUM SERUM 3.3 MEQ/L (3.5-5.1)
[2017-04-03] MEDS: metOLazone 5 MG TAB PO SCH (08:11)
[2017-04-03] MEDS: FAMOTIDINE 20 MG TAB PO SCH (08:11)
[2017-04-03 08:12] VITALS: BP 146/68
[2017-04-03] MEDS: POTASSIUM CHLORIDE 10 MEQ SR TABLET PO SCH (08:12)
[2017-04-03] MEDS: ISOSORBIDE MON. (IMDUR) 60 MG XR TAB PO SCH (08:12)
[2017-04-03] MEDS: CARVedilol 6.25 MG TAB PO SCH (08:12)
[2017-04-03] MEDS: BUMETANIDE 1 MG TAB PO SCH (08:12)
[2017-04-03] MEDS: MAGNESIUM OXIDE 400 MG TAB (MAG-OX) PO SCH (08:12)
[2017-04-03] MEDS: FLUTICASONE PROP 0.05% NASAL SPRAY 16 GM (FLONASE) SCH (08:13)
[2017-04-03] MEDS: NYSTATIN 100,000 UNITS/GM TOPICAL PWD 15 GM TOP SCH ×2 (08:13→13:09)
[2017-04-03] MEDS: LEVEMIR (INSULIN DETEMIR) 1 UNITS/0.01ML SC SCH (08:13)
[2017-04-03] MEDS: HumaLOG INSULIN (NovoLOG) PER UNIT SC SCH ×2 (08:14→12:34)
[2017-04-03] MEDS ORDERED: POTASSIUM CHLORIDE 10 MEQ SR TABLET PO ONE (08:30)
[2017-04-03 08:50] VITALS: BP 163/71
--- NOTE | 2017-04-03 09:07 | IPNPDOC ---
Subjective Date Seen The patient was seen on 04/03/17. Subjective Chief Complaint/HPI The patient is a 66-year-old female admitted with a reason for visit of Anemia. Events since last encounter Pt reports mtp forms stools yesterday and another this morning. she has no new concerns. Denies noticeable bleeding. General: Denies: Fatigue Constitutional: Denies: Chills, Fever Pulmonary: Denies: Dyspnea, Cough Cardiovascular: Denies: Chest Pain, Palpitations Gastrointestinal: Denies: Nausea, Vomiting, Diarrhea Neurological: Denies: Weakness Psych: Reports: Mood Normal Objective Physical Examination General Exam: Positive: Alert, No Acute Distress ENT Exam: Positive: Mucous membr. moist/pink Neck Exam: Negative: JVD Chest Exam: Positive: Clear to auscultation, Diminished Heart Exam: Positive: Rate Normal, Normal S1, Normal S2 Abdomen Exam: Positive: Normal bowel sounds, Soft, Other (obese), Negative: Tenderness Extremity Exam: Negative: Edema Psych Exam: Positive: Mental status NL Assessment /Plan Problems (1) Fe deficiency anemia Problem Text: 04/03 Hgb stable since 03/29. suggests no further active bleeding. Will reattempt UGI today, consider further outpt work up to include EGD, colonoscopy. 04/02 given active bleeding-VKA is contraindicated; therefore stopped. Given 2 recent MIs (12/2016, 02/2017), would not pursue EGD/colonoscopy, Failed UGISBFT today, moving bowels, await clearance of barium to repeat, obvious bleeding source and monitor hgb to assure stable before dc (will be permanently moving to [place], [place] in next ~1M c daughter). + PPI to baseline Pepcid (has been on since last active peptic ulcer) 2M h/o melanotic stools c increased CHAVARRIA h/o PUD 04/01 9.2 03/31 9.0-+ Venofer 03/30 9.3 03/29 hgb 7.3-therefore, tx 2u PRBCs 12/2010 hgb 14.6 (previous hgb in [place]) 03/29 % sat 5/ferritin 32 03/30 abs retic 112! 03/30 B12 597 03/30 H pylori Ab 03/30 SPEP 03/31 heme occult + stool 03/31 CT AP IV/PO contrast: No acute abdominopelvic pathology appreciated. 2. Sigmoid diverticulosis without acute diverticulitis. 3. Liver enhancement is somewhat heterogeneous which may be secondary to timing of image acquisition and the previously noted hepatic lesions are not visualized by current CT. 04/02 UGISBFT planned 02/[address] [facility] [address]. Cedillo-atrophic gastritis last colonoscopy per patient >12Y-none in [place] (2) RICKY (acute kidney injury) Status: Acute Response to Treatment: Stable, Improving Problem Text: favor 2 hypovolemia 04/01 26/1.3, 3.6 03/31 30/1.3, 3.6 03/30 39/1.5, K 4.6 baseline cr ~1.2 (3) CAD (coronary artery disease) Status: Chronic Response to Treatment: Stable Problem Text: 02/13/17 [facility] chest pain c "mild" T-I elevation, stable CAD c patent proximal CX, 1 marginal stents (dominant RCA c 50% mid stenosis and 50% PDA) (4) Diastolic CHF Status: Chronic Problem Text: Euvolemic on HD bumet 1 BID, metol 5 BID 03/31 K 3.6, Mg 1.9; therefore, K 20 BID to 20 TID and continue MOX 400 BID (5) Atrial fibrillation Status: Chronic Response to Treatment: Stable Problem Specific Plan: Consult Specialist Problem Text: 04/02 - INR remains subtherapeutic off Coumadin, Hgb stable since 03/29 chronic VKA for anticoag carvedilol 6.25 BID for rate control 03/30 INR 2.1; therefore, hold VKA for EGD/colon (6) Pulmonary hypertension Status: Chronic Problem Text: 12/2016 R heart cath at [place] peak systolic P 100! 12/2016 VQ scan low prob (7) T2DM (type 2 diabetes mellitus) Status: Chronic Response to Treatment: Stable Problem Text: HD Lantus 50 BID 04/01 AC BG ~mid 200s; therefore, Levemir 20 BID to 32 BID c SSNI (8) Physical deconditioning Status: Acute Problem Text: 04/03 - was not seen by PT 04/02, will be seen today, anticipate that she will be safe for d/c. plan for d/c later today or tomorrow. 04/01 PT eval not safe-plan home c services Plan/VTE VTE Prophylaxis Ordered?: No VTE Exclusion Pharmacological: Hemorrhage VS, I&O, 24H, Fishbonestrella Vital Signs/I&O Vital Signs Date Time Temp Pulse Resp B/P (MAP) Pulse Ox O2 Delivery O2 Flow Rate FiO2 04/03/17 08:12 146/68 04/03/17 08:12 74 04/03/17 06:00 96.0 18 96 Nasal Cannula 2.0 I&O- Last 24 Hours up to 6 AM 04/03/17 06:00 Intake Total 1180 ml Output Total 2000 ml Balance -820 ml Laboratory Data 24H LABS Laboratory Tests 2 04/02/17 11:29: Bedside Glucose (Misc Panel) 237H 04/02/17 16:57: Bedside Glucose (Misc Panel) 342H 04/02/17 20:27: Bedside Glucose (Misc Panel) 343H 04/03/17 05:47: Prothrombin Time 14.7H, Prothromb Time International Ratio 1.13, Anion Gap 9, Glomerular Filtration Rate 42.4L, Blood Urea Nitrogen 31H, Creatinine 1.34H, Sodium Level 137, Potassium Level 3.3L, Chloride Level 97L, Carbon Dioxide Level 31, Calcium Level 9.3 CBC/BMP Laboratory Tests 04/03/17 05:47 Red Blood Count 3.42 L, Mean Corpuscular Volume 91.0, Mean Corpuscular Hemoglobin 27.4, Mean Corpuscular Hemoglobin Concent 30.1 L, Red Cell Distribution Width 22.2 H, Calcium Level 9.3 Microbiology Microbiology 04/03/17 Stool Occult Blood (SASHA), Received Pending 04/02/17 Stool Occult Blood (SASHA) - Final, Complete 03/31/17 Stool Occult Blood (SASHA) - Final, Complete JOCELYNN ROBERT PA-C Apr 03, 2017 09:07
[2017-04-03 09:08] LABS: CARCINOEMBRYONIC ANTIGEN 1.1 NG/ML (<2.5)
--- NOTE | 2017-04-03 10:02 | REP ---
Supine abdomen two views: Comparison is 04/02/2017. The bowel gas pattern is normal and unchanged. Intimal barium from recent CT is again identified in the colon, decreased in volume. The skeletal structures and soft tissues are unchanged. Impression: Normal bowel gas pattern. Signed by Tristin Pak MD 04/03/2017 09:52 A
[2017-04-03 10:48] LABS: PRETREATED FOLATE FOR RBCFOL 14.5 NG/ML
[2017-04-03] MEDS ORDERED: PANT40TA2 PO (11:21)
[2017-04-03] MEDS ORDERED: ASPI81TA18 PO (11:23)
[2017-04-03] MEDS ORDERED: MICR10CA PO (11:34)
[2017-04-03 14:00] VITALS: BP 136/66
--- NOTE | 2017-04-03 14:13 | DSES ---
DATE OF ADMISSION: 04/02/2017 DATE OF DISCHARGE: REASON FOR ADMISSION: The patient admitted on 03/29/2017 with atypical chest pain. She was found to be anemic with a hemoglobin of 7.3. She was transfused but then was determined to have heme-positive stool and the patient admitted. She has a history of atrial fibrillation and had been on warfarin. She has history of myocardial infarction most recently, approximately 1 month before admission. She has diabetes mellitus, pseudo cushingoid appearance, gout, pulmonary artery hypertension. She was transfused a total of 2 units of packed RBCs. Subsequent hemoglobin improved to 9.4 on the day of discharge. She is on significant potent combination of diuretics with metolazone plus bumetanide resulting in significant potassium depletion. This has been repleted throughout her hospital stay with oral and IV doses. On the day of discharge, potassium remains low at 3.3. She is taking 60 mEq daily of potassium, along with metolazone 5 twice a day and bumetanide 1 mg daily. At this point, Hemoccults have become negative and her hemoglobin has stabilized and in fact is improving. Because of her recent myocardial infarction, it was thought to be imprudent to proceed with upper and lower endoscopy to determine definitive cause for her GI blood loss. She has therefore been taken off warfarin and will go home on aspirin 81 mg daily, along with a proton pump inhibitor pantoprazole 40 mg daily to reduce risk for recurrent GI blood loss. The patient reports that it is her plan to move and is in progress of moving to live permanently with her daughter in [place]. She will need repeat potassium in approximately 3 days. Will arrange this with outpatient lab draw, which she can have done either here in [facility] or in [place] and the results transmitted to our office for subsequent management. Option to consider starting spironolactone to help with potassium retention, option to reduce her metolazone but with the current diuretic therapy her BUN has remained fairly stable; 30, 26, 32, 31. On the day of discharge, creatinine is stable at 1.29, 1.31, 1.35, 1.34 on the day of discharge. BNP minimally elevated at 145 on April 01. CEA was 1.1, which is normal. IMPRESSION: 1. Chest pain associated with anemia. 2. Anemia due to GI blood loss, GI blood loss associated with warfarin use since she was therapeutic on admission with an INR of 2.12. On the day of discharge because her warfarin has been discontinued, her INR is 1.13. Additional discharge diagnoses include: 1. Morbid obesity. 2. Pulmonary artery hypertension. 3. 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 4. Diabetes mellitus type 2, insulin requiring 5. Essential hypertension. 6. Chronic atrial fibrillation PLAN: Discharge home today. Check hemoglobin and renal profile in 3 days, results to be transmitted to my office in [place]. Activity as tolerated. No nonsteroidal anti-inflammatory drugs. Of interest is that she had a Helicobacter pylori antibody done during her hospital stay, which was positive at 0.9. This is just barely in the positive range by our lab. Stool for antigen was not collected. This test would be reasonable to complete obviously since treatment for C diff infection would reduce her risk for future upper GI bleeding events. Attempt was made to do an upper GI x-ray but the contrast was slow to clear from her CT abdomen and pelvis, which showed some diverticulosis, without diverticulitis, heterogeneous liver enhancement. She is known to have multiple small liver nodules and no other intraabdominal lesions were identified. Discharge medications will be: - aspirin 81 mg enteric-coated once daily - pantoprazole 40 mg by mouth daily - potassium chloride 30 mEq by mouth twice a day - allopurinol 300 mg by mouth daily - alprazolam 0.25 mg every 6 hours as needed for anxiety - atorvastatin 40 mg by mouth at night - bumetanide 1 mg twice a day - carvedilol 6.25 mg twice a day - metolazone 5 mg by mouth twice a day - magnesium oxide 400 mg by mouth twice a day - isosorbide mononitrate 60 mg by mouth twice a day - aspirin 325 mg daily - insulin 50 units subcutaneously twice a day - insulin lispro Humalog before meals and at bedtime per a sliding scale that she has been advised to use by her enrober tender She did receive an influenza vaccine on March 31, flu zone quadrivalent. [facility]
== END 2017-04-03 16:24 | disposition home or self-care (01) | DRG 813 ==
LOC: M ED 12:15 → M ED INP 16:14 → M MS4PR 19:30 → M MSPAV 03-30 16:35 → OBSVTOIN 04-02 17:28
PROVIDERS: ADMIT Family Medicine; ATTEND Family Medicine
PROC: 30253N1 (ICD-10-PCS; principal; 2017-03-29)
DX: D68.32 Hemorrhagic disorder due to extrinsic circulating anticoagulants (principal); J96.11 Chronic respiratory failure with hypoxia; I50.42 Chronic combined systolic (congestive) and diastolic (congestive) heart failure; I13.0 Hypertensive heart and chronic kidney disease with heart failure and stage 1 through stage 4 chronic kidney disease, or unspecified chronic kidney disease; N17.9 Acute kidney failure, unspecified; E24.2 Drug-induced Cushing's syndrome; E11.9 Type 2 diabetes mellitus without complications; K21.9 Gastro-esophageal reflux disease without esophagitis; I25.10 Atherosclerotic heart disease of native coronary artery without angina pectoris; I48.2 Chronic atrial fibrillation; N18.9 Chronic kidney disease, unspecified; I27.81 Cor pulmonale (chronic); M10.9 Gout, unspecified; I25.2 Old myocardial infarction; G47.34 Idiopathic sleep related nonobstructive alveolar hypoventilation; I27.2 Other secondary pulmonary hypertension; Z95.5 Presence of coronary angioplasty implant and graft; E66.01 Morbid (severe) obesity due to excess calories; Z79.01 Long term (current) use of anticoagulants; Z79.82 Long term (current) use of aspirin; Z79.899 Other long term (current) drug therapy; Z88.5 Allergy status to narcotic agent; Z88.8 Allergy status to other drugs, medicaments and biological substances; Z79.4 Long term (current) use of insulin

== ENCOUNTER → 2018-10-23 | Outpatient (REF) | payer MEDICARE, MEDICAID ==
[~2018-10-23] MED LIST changes: +ALPR0.25; +ALPR0.25 PO; +ASPI81TA52 PO; +ATOR40TA75; +ATOR40TA75 PO; +BUME1TAB27 PO; +BUME1TAB3 PO; +CARV6.25; +CARV6.25 PO; +COUM1TAB17 PO; +CRES10TA32; +FAMO1TAB11 PO; +FAMO1TAB25 PO; +FLON1SPR; +FLUT1SPR2; +INSUHUMDS SC; +INSULANT SC; +IRON65TA PO; +ISOS60TA2; +ISOS60TA2 PO; +KLOR10TA76 PO; +MAGN400T5 PO; +METO5TA; +METO5TA PO; +MICR10CA PO; +PANT40TA3 PO; +POTA10TA67; -ROSU10TA; +WARF-20; +WARF4TAB52; +ZYLO300T6 PO
[2018-10-24 12:18] LABS: BASO # 0.1 10^3/uL (0.0-0.2); BASO % 0.9 % (0.0-1.0); EOS # 0.3 10^3/uL (0.0-0.50); HEMATOCRIT 43.7 % (36.0-47.0); HEMOGLOBIN 13.5 g/dl (12.0-15.5); LYMPH # 1.7 10^3/uL (1.5-4.5); LYMPH % 12.9 % (24.0-44.0); MEAN CORPUSCULAR HEMOGLOBIN 29.2 pg (27.0-33.0); MEAN CORPUSCULAR HGB CONC 30.9 g/dl (32.0-36.5); MEAN CORPUSCULAR VOLUME 94.6 fl (80.0-96.0); MONO # 0.9 10^3/uL (0.0-0.8); MONO % 6.5 % (0.0-5.0); NEUTROPHILS # 10.1 10^3/uL (1.8-7.7); NEUTROPHILS % 76.6 % (36.0-66.0); PLATELET COUNT, AUTOMATED 396 10^3/uL (150-450); RED BLOOD COUNT 4.62 10^6/uL (4.00-5.40); WHITE BLOOD COUNT 13.2 10^3/uL (4.0-10.0)
[2018-10-24 12:43] LABS: HEMOGLOBIN A1c 7.4 %
[2018-10-24 13:15] LABS: ALBUMIN 4.2 GM/DL (3.2-5.2); ALT/SGPT 72 U/L (12-78); BILIRUBIN,TOTAL 0.5 MG/DL (0.2-1.0); BLOOD UREA NITROGEN 82 MG/DL (7-18); CALCIUM LEVEL 10.8 MG/DL (8.8-10.2); CARBON DIOXIDE LEVEL 29 MEQ/L (21-32); CHLORIDE LEVEL 101 MEQ/L (98-107); CHOLESTEROL LEVEL 282 MG/DL (<200); CREATININE FOR GFR 2.21 MG/DL (0.55-1.30); GLOMERULAR FILTRATION RATE 23.6 (>45); GLUCOSE, FASTING 59 MG/DL (70-100); HDL CHOLESTEROL 39 MG/DL (>40); NON-HDL-C 243 MG/DL; POTASSIUM SERUM 5.1 MEQ/L (3.5-5.1); SODIUM LEVEL 139 MEQ/L (136-145); TOTAL PROTEIN 8.2 GM/DL (6.4-8.2); TRIGLYCERIDES LEVEL 411 MG/DL (<150)
== END ==
LOC: M SFHCCLAY 14:51
PROVIDERS: ATTEND Family Medicine
DX: E11.9 Type 2 diabetes mellitus without complications (principal); I25.10 Atherosclerotic heart disease of native coronary artery without angina pectoris
CPT/HCPCS: 36415; 80053; 80061; 83036; 85025; G0463

== ENCOUNTER → 2018-11-15 | Outpatient (REF) | payer MEDICARE, MEDICAID ==
[2018-11-15 18:38] LABS: CALCIUM LEVEL 8.8 MG/DL (8.8-10.2); CREATININE FOR GFR 1.85 MG/DL (0.55-1.30); MAGNESIUM LEVEL 2.3 MG/DL (1.8-2.4); POTASSIUM SERUM 3.5 MEQ/L (3.5-5.1); URIC ACID 12.1 MG/DL (2.6-6.0)
== END ==
LOC: M SFHCCLAY 10:37
PROVIDERS: ATTEND Family Medicine
DX: N18.3 Chronic kidney disease, stage 3 (moderate) (principal); M10.9 Gout, unspecified
CPT/HCPCS: 80048; 83735; 84550; G0463

== ENCOUNTER → 2018-12-24 | Outpatient (CLI) | payer MEDICARE, MEDICAID ==
[2018-12-24 17:50] LABS: CALCIUM LEVEL 9.2 MG/DL (8.8-10.2); CREATININE FOR GFR 2.85 MG/DL (0.55-1.30); GLOMERULAR FILTRATION RATE 17.6 (>45); POTASSIUM SERUM 4.3 MEQ/L (3.5-5.1)
== END ==
LOC: M SMT 11:17
PROVIDERS: ATTEND Nurse Practitioner Women's Health
DX: N13.30 Unspecified hydronephrosis (principal)
CPT/HCPCS: 36415; 80048; G0463

== ENCOUNTER → 2019-01-03 | Outpatient (CLI) | payer MEDICARE, MEDICAID ==
--- NOTE | 2019-01-03 13:58 | REP ---
CT of the abdomen and pelvis without IV and oral contrast for hydronephrosis: Comparison is 03/31/2017 without and with IV contrast. There is a right ureteral stent as an interval change. The proximal pigtail of the stent appears to be in the proximal right ureter. The distal pigtail is in the bladder. There are too fluid-filled dilated structures in the upper pole of the right kidney with an unusual appearance. There appears to be a significant right renal sinus lipoma ptosis. These too upper pole fluid-filled structures may P dilated calyces secondary to compression of their infundibuli by a lipoma ptosis para alternatively, they could represent parapelvic cysts. Unable to make this distinction on the basis of the images. Followup MRI might be considered. The mid and lower pole calyces are unremarkable. The right ureter is not dilated. There are similar findings in the left kidney with left renal sinus lymphomatosis. There are too dilated structures. The upper pole left kidney that could be dilated calyces are parapelvic cyst. There are not quite as dilated as those on the right. The mid and lower pole calyces of the left kidney are unremarkable. The left ureter is not dilated. The visualized lung enrique are unremarkable. The unenhanced hepatic parenchyma is unremarkable. There is a small gallbladder calculus. A small volume of milk of calcium in the gallbladder. The gallbladder is otherwise unremarkable. There is no biliary duct dilatation. The pancreas and spleen are normal size unremarkable. The adrenals are unremarkable. The abdominal aorta is unremarkable. There is no retroperitoneal adenopathy or mass. There is no bowel distension or obstruction. Mesentery is unremarkable. Pelvis: The uterus and adnexa are unremarkable. Bladder is unremarkable. There is no ascites or adenopathy. Impression: There are no usual findings in the kidneys. There is marked bilateral renal sinus lipoma ptosis. There are too fluid-filled structures in the upper pole of each kidney and the structures of the right kidney are larger. These are nonspecific and could represent dilated calyces as a consequence of obstruction by the lipoma ptosis or these could represent parapelvic cysts. Is difficult to make this distinction by CT. Followup MRI might be considered to better evaluate the renal sinus lipoma ptosis in relation to the fluid-filled structures. Electronically Signed by Tristin Pak MD 01/03/2019 01:50 P
== END ==
LOC: M RAD 10:30
PROVIDERS: ATTEND Nurse Practitioner Women's Health
DX: D17.9 Benign lipomatous neoplasm, unspecified (principal)

== ENCOUNTER → 2019-03-10 | Outpatient (REF) | payer MEDICARE, MEDICAID ==
[~2019-03-10] MED LIST changes: +ASPI81TA85 PO; +BUSP5TA PO; +IRON65TA2 PO; +LASI80TA3 PO; +LEVO500T3 PO; +MAGN400T3 PO; +POTA10TA16 PO
[2019-03-10 15:09] LABS: BASO # 0.1 10^3/uL (0.0-0.2); BASO % 0.7 % (0.0-1.0); EOS # 0.7 10^3/uL (0.0-0.50); EOS % 4.5 % (0.0-3.0); HEMATOCRIT 31.6 % (36.0-47.0); HEMOGLOBIN 9.5 g/dl (12.0-15.5); LYMPH # 1.2 10^3/uL (1.5-4.5); LYMPH % 7.2 % (24.0-44.0); MEAN CORPUSCULAR HEMOGLOBIN 29.8 pg (27.0-33.0); MEAN CORPUSCULAR HGB CONC 30.1 g/dl (32.0-36.5); MEAN CORPUSCULAR VOLUME 99.1 fl (80.0-96.0); MONO # 1.1 10^3/uL (0.0-0.8); MONO % 6.6 % (0.0-5.0); PLATELET COUNT, AUTOMATED 483 10^3/uL (150-450); RED BLOOD COUNT 3.19 10^6/uL (4.00-5.40); WHITE BLOOD COUNT 16.3 10^3/uL (4.0-10.0)
[2019-03-10 15:34] LABS: ALBUMIN 2.8 GM/DL (3.2-5.2); BILIRUBIN,TOTAL 0.4 MG/DL (0.2-1.0); C REACTIVE PROTEIN QUANTITATIV 1.75 MG/DL (0.00-0.30); CALCIUM LEVEL 9.6 MG/DL (8.8-10.2); CREATININE FOR GFR 1.69 MG/DL (0.55-1.30); GLOMERULAR FILTRATION RATE 32.2 (>45); POTASSIUM SERUM 4.1 MEQ/L (3.5-5.1); TOTAL PROTEIN 7.3 GM/DL (6.4-8.2)
[2019-03-10 15:59] LABS: ERYTHROCYTE SEDIMENTATION RATE > 140 mm/hr (0-30)
== END ==
LOC: M LAB REF 14:28
PROVIDERS: ATTEND Internal Medicine Infectious Disease
DX: K81.0 Acute cholecystitis (principal); A49.1 Streptococcal infection, unspecified site; Z16.21 Resistance to vancomycin; Z79.2 Long term (current) use of antibiotics

== ENCOUNTER → 2019-03-12 | Outpatient (CLI) | payer MEDICARE, MEDICAID ==
[~2019-03-12] MED LIST changes: -ASPI81TA85 PO; -BUSP5TA PO; -IRON65TA2 PO; -LASI80TA3 PO; -LEVO500T3 PO; -MAGN400T3 PO; -POTA10TA16 PO
--- NOTE | 2019-03-12 14:37 | REP ---
CT of the abdomen and pelvis without IV or bowel contrast to evaluate for fluid collection in the gallbladder fossa. On the prior study of 01/03/2019 there was a gallbladder. The patient has had an interim cholecystectomy. Subsequent to the cholecystectomy a fluid collection developed in the gallbladder fossa. A percutaneous drainage catheter was placed into this fluid collection. On the transcribed report of an outside CT ([place], [place]) dated 02/28/1929, the fluid collection in the gallbladder fossa had decreased in size from a prior study and measured 1.2 x 2.8 x 1.9 cm. On the study today there is a percutaneous pigtail drainage catheter in the gallbladder fossa. However, there is no fluid in the gallbladder fossa today. The fluid has resolved. There is a mass in the subcutaneous fat in the anterior abdominal wall compatible with seroma, hematoma or abscess. Today this measures 4.9 cm AP by 6.1 cm transversely by 4.6 cm craniocaudad. This previously measured 5.1 x 6.7 x 5.2 cm. It has slightly decreased in size. The the patient has known marked bilateral renal sinus lipomatosis. The renal sinus fat extends into the extrarenal soft tissues at the renal brandy bilaterally. There is dilatation of the upper pole renal calyces bilaterally, somewhat worse on the right on the left, likely secondary to the lipomatosis unchanged from multiple prior studies. There is a right ureteral stent, unchanged. The liver has a nodular surface compatible with cirrhosis. This is unchanged. There is are small adrenal gland nodules, unchanged from 04/17/2008. There is sigmoid diverticulosis without diverticulitis. There are multiple subcutaneous nodular densities, varying in size and location from study to study, likely subcutaneous injections. The visualized lung enrique are unremarkable. The pancreas, spleen, abdominal aorta, bowel and mesentery are unremarkable. The bladder, uterus and adnexa are unremarkable. Impression: There is no fluid in the gallbladder fossa. There is a persisting pigtail drainage catheter in the gallbladder fossa. There is a subcutaneous mass in the anterior abdominal wall has slightly decreased in size, compatible with seroma, hematoma or abscess. Diverticulosis without diverticulitis. Cirrhosis. 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 This is slightly worse on the right. There is a right ureteral stent, unchanged. Diverticulosis without diverticulitis. Small bilateral adrenal nodules, unchanged from 04/17/2008. Electronically Signed by Tristin Pak MD 03/12/2019 02:28 P
== END ==
LOC: M RAD 12:55
PROVIDERS: ATTEND Nurse Practitioner Family
DX: A49.1 Streptococcal infection, unspecified site (principal); Z16.21 Resistance to vancomycin; Z79.2 Long term (current) use of antibiotics

== ENCOUNTER → 2019-03-28 | Outpatient (CLI) | payer MEDICARE, MEDICAID ==
[~2019-03-28] MED LIST changes: +LASI80TA3 PO
[2019-03-28 14:53] LABS: HEMATOCRIT 31.4 % (36.0-47.0); HEMOGLOBIN 9.8 g/dl (12.0-15.5); MEAN CORPUSCULAR HEMOGLOBIN 30.1 pg (27.0-33.0); MEAN CORPUSCULAR HGB CONC 31.2 g/dl (32.0-36.5); MEAN CORPUSCULAR VOLUME 96.3 fl (80.0-96.0); PLATELET COUNT, AUTOMATED 572 10^3/uL (150-450); RED BLOOD COUNT 3.26 10^6/uL (4.00-5.40)
[2019-03-28 15:17] LABS: ALBUMIN 3.2 GM/DL (3.2-5.2); BILIRUBIN,TOTAL 0.7 MG/DL (0.2-1.0); C REACTIVE PROTEIN QUANTITATIV 2.93 MG/DL (0.00-0.30); CREATININE FOR GFR 2.94 MG/DL (0.55-1.30); POTASSIUM SERUM 4.9 MEQ/L (3.5-5.1); TOTAL PROTEIN 7.6 GM/DL (6.4-8.2)
[2019-03-28 15:26] LABS: ERYTHROCYTE SEDIMENTATION RATE 106 mm/hr (0-30)
[2019-03-28 15:48] LABS: ANISOCYTOSIS 1+; BASOPHILS 1 % (0-1); EOSINOPHILS 5 % (0-3); HYPOCHROMASIA 1+; LYMPHOCYTES 5 % (16-44); METAMYELOCYTES 5 % (0-0); MYELOCYTES 1 % (0-0); NEUTROPHILS 83 % (28-66); PLATELET ESTIMATE INCREASED (NORMAL)
== END ==
LOC: M LAB 13:59
PROVIDERS: ATTEND Internal Medicine Infectious Disease
DX: K81.0 Acute cholecystitis (principal); A49.1 Streptococcal infection, unspecified site; Z16.21 Resistance to vancomycin; Z79.2 Long term (current) use of antibiotics

== ENCOUNTER → 2019-03-28 | Outpatient (CLI) | payer MEDICARE, MEDICAID ==
[~2019-03-28] MED LIST changes: +LIDOCAINE 1% MDV 20ML VIAL As Ordered ONE
[2019-03-28 13:40] VITALS: BP 160/70
--- NOTE | 2019-03-28 16:53 | REP ---
ULTRASOUND-GUIDED ABDOMINAL SEROMA DRAIN The procedure was performed under the direct supervision of Dr. De Leon. Patient has a history of a 4.9 x 6.1 by 4.6 cm mass in the subcutaneous fat in the anterior abdominal wall compatible with seroma, hematoma or abscess seen on a previous CT scan dated 03/12/2019. The risks and benefits of the procedure were explained to the patient and informed consent was obtained. The abdominal fluid collection was localized using ultrasound guidance. The skin was prepped and draped in a sterile fashion. 1% lidocaine was used as a local anesthetic. Using ultrasound guidance an 8-[place] Skater APDL catheter was inserted using trocar technique. The catheter was advanced into the more medial portion of the fluid collection. Approximately 5 ml of thick red colored fluid was withdrawn. The catheter was withdrawn into the lateral aspect of the fluid collection. However, no more fluid could be withdrawn. This is felt to be a hematoma. Two 10 ml aliquots of sterile saline were injected and withdrawn. Again no more fluid was able to be withdrawn. The catheter was then removed. The patient tolerated the procedure well and there were no immediate complications. After the appropriate amount of monitored convalescence the patient was discharged from the department. Electronically Signed by REJI Meyer 03/28/2019 04:09 P Electronically Signed by Tristin De Leon MD 03/28/2019 04:44 P
== END ==
LOC: M IRPRO 12:21
DX: L02.211 Cutaneous abscess of abdominal wall (principal); R18.8 Other ascites; K81.0 Acute cholecystitis; A49.1 Streptococcal infection, unspecified site; Z16.21 Resistance to vancomycin; Z79.2 Long term (current) use of antibiotics

== ENCOUNTER → 2019-04-21 | Outpatient (REF) | payer MEDICARE, MEDICAID ==
[~2019-04-21] MED LIST changes: -LIDOCAINE 1% MDV 20ML VIAL As Ordered ONE
== END ==
LOC: M LABSMT 11:50
PROVIDERS: ATTEND Nurse Practitioner Women's Health
DX: Z01.818 Encounter for other preprocedural examination (principal); N13.1 Hydronephrosis with ureteral stricture, not elsewhere classified; I48.20 Chronic atrial fibrillation, unspecified; Z53.8 Procedure and treatment not carried out for other reasons

== ENCOUNTER 2019-05-07 06:50 | Day surgery (SDC) | payer MEDICARE, MEDICAID ==
[~2019-05-07] VITALS: Ht 157.5 cm; Wt 85.7 kg
[~2019-05-07 06:50] MED LIST changes: +ASPI81TA85 PO; +BUSP5TA PO; +IRON65TA2 PO; +LEVO500T3 PO; +MAGN400T3 PO; +POTA10TA16 PO
[2019-05-07] MEDS ORDERED: ceFAZolin SOD 2 GM in IV 1 EA IV ONE (07:00)
[2019-05-07] MEDS ORDERED: LR 1,000 ML IV ONE (07:00)
[2019-05-07] MEDS ORDERED: CONRAY-60 60% 50ML VIAL (Q9961) As Ordered ONE ×2 (07:08→08:37)
[2019-05-07] MEDS ORDERED: PROT1TAB2 PO (07:27)
[2019-05-07] MEDS ORDERED: VICT18IN SC (07:27)
[2019-05-07] MEDS ORDERED: AMLO5TAB6 PO (07:27)
[2019-05-07] MEDS ORDERED: SPIR50TA4 PO (07:27)
[2019-05-07] MEDS ORDERED: PROPOFOL 200 MG/20 ML VIAL As Ordered ONE ×2 (07:55→09:30)
[2019-05-07] MEDS ORDERED: dexameTHASONE 4 MG/ML 1ML VIAL (J1100) As Ordered ONE (07:55)
[2019-05-07] MEDS ORDERED: LIDOCAINE 2% INJ 100 MG/5 ML SDV (FOR ANES.) As Ordered ONE (07:55)
[2019-05-07] MEDS ORDERED: MIDAZOLAM INJ 2 MG/2 ML VIAL (J2250) As Ordered ONE (07:55)
[2019-05-07] MEDS ORDERED: ONDANSETRON 4MG/2ML VIAL (J2405) As Ordered ONE (07:55)
[2019-05-07] MEDS ORDERED: fentaNYL 100 MCG/2 ML INJECTION (J3010) As Ordered ONE (07:56)
[2019-05-07] MEDS ORDERED: LIDOCAINE 2% 5ML JELLY UROJET As Ordered ONE (08:52)
[2019-05-07] MEDS ORDERED: PERCOCET 5MG/325MG TAB PO PRN (10:00)
[2019-05-07] MEDS ORDERED: ONDANSETRON 4MG/2ML VIAL (J2405) IV PRN (10:00)
[2019-05-07] MEDS ORDERED: HYDROMORPHONE HCL 0.5 MG/ 0.5 ML SYRINGE (J1170 PER 1) IV PRN (10:00)
[2019-05-07] MEDS ORDERED: LR 1,000 ML IV SCH (10:00)
[2019-05-07] MEDS ORDERED: fentaNYL 100 MCG/2 ML INJECTION (J3010) IV PRN (10:00)
--- NOTE | 2019-05-07 10:20 | REP ---
C-ARM VIEWS DURING RIGHT URETERAL STENT PLACEMENT: Multiple C-arm views performed and demonstrate placement of a right ureteral stent. The proximal end of the stent is coiled in the right renal pelvis and the distal end of coiled in the region of the urinary bladder. Contrast partially opacifies the right pelvicalyceal system which appears duplicated. Visualized right ureter proximally is grossly unremarkable. 32 seconds fluoroscopy time utilized. Electronically Signed by Tristin De Leon MD 05/07/2019 02:31 P
[2019-05-07 10:57] VITALS: BP 135/64
[2019-05-07] MEDS ORDERED: ACETAMINOPHEN TAB 650MG DOSE (2X325MG) PO PRN (11:00)
--- NOTE | 2019-05-07 14:05 | RO ---
DATE OF PROCEDURE: 05/07/2019 PREPROCEDURE DIAGNOSIS: Right hydronephrosis. POSTPROCEDURE DIAGNOSIS: Right hydronephrosis. PROCEDURE: Cystoscopy, right ureteroscopy, right ureteral stent exchange with a black silicone stent. SURGEON: Bryant Bledsoe MD MANAGER WEB APPLICATION: None. ANESTHESIA: Monitored anesthesia care (MAC). 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 She is brought to the operating room today for the above-listed procedure. DESCRIPTION OF PROCEDURE: The patient was brought to the operating room, and monitored anesthesia care (MAC) anesthesia was administered. Prophylactic antibiotics were infused. She was then placed in the dorsal lithotomy position and prepped and draped in the usual sterile fashion. A rigid cystoscope was inserted into the urethral meatus and advanced into the bladder. The bladder was then thoroughly examined; and of note, the patient had two stents protruding from the right ureteral orifice. At this point, a guidewire was advanced up the right collecting system alongside both stents. Both stents were then removed without any difficulty. I then went up the right collecting system with a short semirigid ureteroscope, and the retrograde pyelogram was performed. It was notable for mild to moderate right hydroureteronephrosis with no extravasation. Also of note, the patient's renal pelvis appeared a lot smaller than normal. At this point, I advanced the ureteral access sheath up the wire into the right collecting system. I then went back to see the flexible ureteroscope and examined the kidney, and this confirmed that the patient had a very small renal pelvis. No masses were seen within the renal pelvis or in the calices. At this point, the ureteroscope was withdrawn, along with the flexible ureteroscope, and no abnormalities were seen within the ureter. I then utilized the wire to advance a 7-Greek x 22-cm black silicone ureteral stent into the right collecting system. The wire was removed, and there were adequate curls of the stent in the right renal pelvis and in the bladder. The bladder was then emptied of all fluid, and this marked the conclusion of the procedure. The patient was taken out of the dorsal lithotomy position, awakened from anesthesia, and transported to the recovery room in stable condition. ESTIMATED BLOOD LOSS: 5 mL. COMPLICATIONS: None. SPECIMENS: None. PLAN: This patient will need stenting long-term. Since this is a black silicone stent, will try to keep it in for at least a year. Will get a followup renal ultrasound in approximately 3 months to make sure there is no hydronephrosis. Assuming there is no hydronephrosis, I will keep the stent in and try to change it out 1 year from now.
== END 2019-05-07 11:10 | disposition home or self-care (01) ==
LOC: M SDC 06:50
PROVIDERS: ATTEND Urology
DX: N13.1 Hydronephrosis with ureteral stricture, not elsewhere classified (principal); I10 Essential (primary) hypertension; K21.9 Gastro-esophageal reflux disease without esophagitis; E11.9 Type 2 diabetes mellitus without complications; E78.5 Hyperlipidemia, unspecified; I25.2 Old myocardial infarction; G47.30 Sleep apnea, unspecified; I27.81 Cor pulmonale (chronic); I27.20 Pulmonary hypertension, unspecified; N18.4 Chronic kidney disease, stage 4 (severe); Z79.899 Other long term (current) drug therapy; Z79.4 Long term (current) use of insulin
CPT/HCPCS: 52332; 74420; C1769; C1894; C2617; J0690; J2250; J2405; J3010; Q9961

== ENCOUNTER → 2019-08-04 | Outpatient (CLI) | payer MEDICARE, MEDICAID ==
[~2019-08-04] MED LIST changes: +AMLO5TAB6 PO; +PROT1TAB2 PO; +SPIR50TA4 PO; +VICT18IN SC
--- NOTE | 2019-08-05 02:56 | REP ---
Clinical: Hydronephrosis. Technique: Real time field scale ultrasound examination using curved array transducer. Comparison: CT dated 03/12/2019 Findings: The right kidney measures 12.1 x 5.7 x 6.3 cm and includes a large echogenic central mass measuring roughly 9.2 x 6.1 x 5.0 cm consistent with the mass-like lipomatous changes at the renal hilum noted on CT along with a lobulated cystic area in the upper pole measuring 4.2 x 3.6 x 2.8 cm which may reflect hydronephrosis versus cyst. The left kidney measures 12.6 x 5.5 x 6.5 cm and includes a large echogenic central mass with poorly defined borders measuring greater than 7 cm consistent with the mass-like lipomatous changes at the renal hilum noted on CT. Mild hydronephrosis along with possible 2.7 x 2.0 x 1.7 cm lower pole cyst versus a focally dilated calyx cannot be differentiated. Bladder is unremarkable. Impression: Findings as described above consistent with CT findings. Evaluation is limited and if necessary, follow-up pre and postcontrast CT should be considered for further investigation. Electronically Signed by Cory Bartlett MD 08/05/2019 02:47 A
== END ==
LOC: M RAD 10:34
PROVIDERS: ATTEND Urology
DX: N13.1 Hydronephrosis with ureteral stricture, not elsewhere classified (principal)

== ENCOUNTER → 2019-10-27 | Outpatient (REF) | payer MEDICARE, MEDICAID | LOC: M LAB REF 16:55 | PROVIDERS: ATTEND Internal Medicine Nephrology | DX: R80.9 Proteinuria, unspecified (principal) ==

== ENCOUNTER → 2019-11-25 | Outpatient (REF) | payer MEDICARE, MEDICAID ==
[~2019-11-25] MED LIST changes: +ACET-683 PO; +AMBI5TAB PO; +AMLO1TAB24 PO; -AMLO5TAB6 PO; -ASPI81TA85 PO; +ASPI81TA86 PO; +CENT1TAB PO; +CLEO300C2 PO; +COLC0.6T47 PO; +CVS10CAP7 PO; +FERR325T3 PO; +FURO40TA2 PO; +ISOS1TAB36; +ISOS1TAB36 PO; -ISOS60TA2; -ISOS60TA2 PO; +LEVO250T12 PO; +MELA1TAB3 PO; +META0.52 PO; +METO25TA PO; +MIRA3350 PO; +NITR0.4S14 SL; +NOVOINJ3 SC; +NYST10006 TOP; +PANT40TA29 PO; -PANT40TA3 PO; +TORS20TA2 PO; +ZOFR4TAB16 PO
[2019-11-25 11:45] LABS: APPEARANCE, URINE TURBID (CLEAR); BACTERIA, URINE AUTO NEGATIVE (NEGATIVE); BILIRUBIN, URINE AUTO NEGATIVE (NEGATIVE); BLOOD, URINE BLOOD 1+ (NEGATIVE); COLOR, URINE YELLOW (YELLOW); GLUCOSE, URINE (UA) AUTO NEGATIVE (NEGATIVE); KETONE, URINE AUTO NEGATIVE (NEGATIVE); LEUKOCYTE ESTERASE, URINE AUTO 3+ (NEGATIVE); NITRITE, URINE AUTO NEGATIVE (NEGATIVE); PROTEIN, URINE AUTO 1+ mg/dL (NEGATIVE); RBC, URINE AUTO 37 /HPF (0-3); SPECIFIC GRAVITY URINE AUTO 1.009 (1.002-1.035); SQUAMOUS EPITHELIAL CELL UR AU 2 /HPF (0-6); UROBILINOGEN, URINE AUTO 0.2 mg/dL (0.0-2.0); WBC, URINE AUTO TNTC /HPF (0-3)
== END ==
LOC: M SFHCCLAY 08:12
PROVIDERS: ATTEND Physician Assistant
DX: R35.0 Frequency of micturition (principal); L98.9 Disorder of the skin and subcutaneous tissue, unspecified
CPT/HCPCS: 81001; 81002; 87070; 87077; 87086; 87186; G0463

== ENCOUNTER → 2020-02-11 | Outpatient (REF) | payer OTHER, MEDICAID ==
[~2020-02-11] MED LIST changes: -COLC0.6T47 PO; +COLC1TAB13 PO; -ISOS1TAB36; -ISOS1TAB36 PO; +ISOS60TA2; +ISOS60TA2 PO
== END ==
LOC: M SFHCCLAY 09:56
PROVIDERS: ATTEND Family Medicine
DX: N30.00 Acute cystitis without hematuria (principal)

== ENCOUNTER → 2020-02-19 | Outpatient (REF) | payer OTHER ==
[2020-03-18 14:29] LABS: BASO # 0.1 10^3/uL (0.0-0.2); BASO % 0.7 % (0.0-1.0); EOS # 0.2 10^3/uL (0.0-0.5); EOS % 1.6 % (0.0-3.0); HEMATOCRIT 37.7 % (36.0-47.0); HEMOGLOBIN 11.2 g/dl (12.0-15.5); LYMPH # 1.2 10^3/uL (1.5-5.0); LYMPH % 10.2 % (24.0-44.0); MEAN CORPUSCULAR HGB CONC 29.7 g/dl (32.0-36.5); MEAN CORPUSCULAR VOLUME 94.3 fl (80.0-96.0); MONO # 0.7 10^3/uL (0.0-0.8); NEUTROPHILS # 9.7 10^3/uL (1.5-8.5); NEUTROPHILS % 79.9 % (36.0-66.0); PLATELET COUNT, AUTOMATED 426 10^3/uL (150-450); WHITE BLOOD COUNT 12.1 10^3/uL (4.0-10.0)
[2020-03-18 14:30] LABS: ERYTHROCYTE SEDIMENTATION RATE 54 mm/hr (0-30)
[2020-04-04 17:02] LABS: ALBUMIN 3.6 GM/DL (3.2-5.2); ALT/SGPT 31 U/L (12-78); BILIRUBIN,TOTAL 0.5 MG/DL (0.2-1.0); BLOOD UREA NITROGEN 49 MG/DL (7-18); CALCIUM LEVEL 9.7 MG/DL (8.8-10.2); CARBON DIOXIDE LEVEL 29 MEQ/L (21-32); CHLORIDE LEVEL 103 MEQ/L (98-107); CREATININE FOR GFR 2.32 MG/DL (0.55-1.30); FREE T4 1.11 NG/DL (0.76-1.46); GLOMERULAR FILTRATION RATE 22.3 (>45); GLUCOSE, FASTING 293 MG/DL (70-100); POTASSIUM SERUM 3.6 MEQ/L (3.5-5.1); RHEUMATOID FACTOR QUANT < 10.0 IU/ML (<15.0); SODIUM LEVEL 138 MEQ/L (136-145); TOTAL PROTEIN 7.3 GM/DL (6.4-8.2)
[2020-04-12 13:37] LABS: ANCA-ATYPICAL SEE SEPARATE REPORT; CYTOPLASMIC NEUTROP AB ANCA-C SEE SEPARATE REPORT; PERINUCLEAR AB ANCA-P SEE SEPARATE REPORT
[2020-04-12 13:38] LABS: CYCLIC CITRULLINATED PEPTIDE See Separate Report UNITS
[2020-04-12 13:40] LABS: ANGIOTENSIN 1 CONVERTING ENZYM See Separate Report U/L; ANTINUCLEAR ANTIBODIES DIRECT See Separate Report; RNP ANTIBODY SEE SEPARATE REPORT UNITS; SMITHS ANTIBODY SEE SEPARATE REPORT UNITS; SSA SJOGRENS A SEE SEPARATE REPORT; SSB SJOGRENS B SEE SEPARATE REPORT
[2020-04-19 06:49] LABS: ANTI DS-DNA AB SEE SEPARATE REPORT
== END ==
LOC: M PLALAB 16:43
PROVIDERS: ATTEND Internal Medicine Pulmonary Disease
DX: I27.20 Pulmonary hypertension, unspecified (principal)

== ENCOUNTER → 2020-02-29 | Outpatient (CLI) | payer OTHER ==
--- NOTE | 2020-03-26 14:44 | SLEEPCENT ---
DATE: 02/29/2020 ORDERED BY: Dr. Casper Nocturnal polysomnography was performed for the retitration of pressure therapy in this patient with obstructive sleep apnea syndrome. For testing, patient was fit with a ResMed AirFit F20 full-face mask of medium size. An initial pressure of 5 cm of water pressure was applied to the circuit. There were 2 liters of oxygen bled through the system, and the lights were extinguished. There was 6 hours and 57 minutes of data reviewed. There was 333.5 minutes of sleep identified. Sleep latency was normal at 8.5 minutes. REM latency was delayed at 219 minutes. Sleep architecture improved late in the study on optimal pressure therapy. There was one REM cycle noted. Overall sleep efficiency was 81.3%. The electrocardiogram showed a sinus rhythm with premature ventricular contractions (PVCs). Average heart rate was 70 beats per minute. EEG showed reasonably normal waveforms for wake and sleep. Respiratory events were best palliated with CPAP at a pressure of +8. Limb activity persisted throughout the study. The limb movement arousal index on this occasion was 7.4. IMPRESSION: Obstructive sleep apnea syndrome (G47.33). RECOMMENDATION: Nightly use of pressure therapy, 8 cm of water with 2 liters of oxygen bled through the circuit. MTDD
== END ==
LOC: M SLEEP 20:00
PROVIDERS: ATTEND Internal Medicine Pulmonary Disease
DX: G47.33 Obstructive sleep apnea (adult) (pediatric) (principal)

== ENCOUNTER → 2020-03-15 | Outpatient (CLI) | payer OTHER ==
--- NOTE | 2020-04-09 15:37 | REP ---
CHEST X-RAY CLINICAL: Idiopathic pulmonary hypertension. TECHNIQUE: PA and lateral. COMPARISON: 03/29/2017. FINDINGS: Stable cardiomegaly. Lung enrique are clear. No consolidation, effusion, or pneumothorax. Skeletal structures are intact. IMPRESSION: Chronic stable cardiomegaly. No acute cardiopulmonary process otherwise appreciated. MTDD
--- NOTE | 2020-04-09 15:37 | REP ---
FOLLOW-UP OBSTETRICAL ULTRASOUND CLINICAL: Growth evaluation. COMPARISON: 12/23/2019. TECHNIQUE: Transabdominal obstetrical ultrasound with color Doppler evaluation. FINDINGS: Ultrasound examination demonstrates single live intrauterine in cephalic presentation. motion was identified by the technologist. Placenta noted posteriorly and grade 1 without evidence for placenta previa or abruption. Amniotic fluid volume is normal. GUANACO equals 12.2 cm. FHR 139 beats per minute. MEASUREMENTS BPD 83 mm 33 weeks 4 days HC 306 mm 34 weeks 0 days AC 298 mm 33 weeks 6 days FL 67 mm 34 weeks 3 days HL 57 mm 33 weeks 1 day Gestational age by current measurements 33 weeks 5 days with estimated date of delivery 04/28/2020. Estimated weight 2320 grams (10-25th percentile). IMPRESSION: Single live intrauterine in cephalic presentation. Estimated weight within normal range. MTDD
== END ==
LOC: M RAD 11:58
PROVIDERS: ATTEND Internal Medicine Pulmonary Disease
DX: I27.20 Pulmonary hypertension, unspecified (principal)
CPT/HCPCS: 71046; 78582; A9540; A9567

== ENCOUNTER → 2020-04-09 | Outpatient (CLI) | payer OTHER, MEDICAID | LOC: M LABSMTC 11:36 | PROVIDERS: ATTEND Anesthesiology | DX: Z01.812 Encounter for preprocedural laboratory examination (principal); Z20.828 Contact with and (suspected) exposure to other viral communicable diseases | CPT/HCPCS: C9803; U0003 ==

== ENCOUNTER → 2020-04-11 | Outpatient (CLI) | payer OTHER, MEDICAID, MEDICARE | LOC: M LABSMTC 11:45 | PROVIDERS: ATTEND Anesthesiology | DX: Z01.812 Encounter for preprocedural laboratory examination (principal); Z20.828 Contact with and (suspected) exposure to other viral communicable diseases | CPT/HCPCS: C9803; U0003 ==

== ENCOUNTER → 2020-04-13 | Outpatient (REF) | payer OTHER | LOC: M SFHCCLAY 15:55 | PROVIDERS: ATTEND Family Medicine | DX: E11.9 Type 2 diabetes mellitus without complications (principal) | CPT/HCPCS: 36415; 83036; G0463 ==

== ENCOUNTER 2020-04-14 08:33 | Day surgery (SDC) | payer OTHER, MEDICAID ==
[~2020-04-14] VITALS: Ht 160 cm; Wt 98.9 kg
[~2020-04-14 08:33] MED LIST changes: -ACET-683 PO; -LEVO250T12 PO; -META0.52 PO; -METO25TA PO; -MIRA3350 PO; -NOVOINJ3 SC; +NS 1,000 ML IV ONE; -NYST10006 TOP; -TORS20TA2 PO; -ZOFR4TAB16 PO
[2020-04-14] MEDS ORDERED: fentaNYL 100 MCG/2 ML INJECTION (J3010) As Ordered ONE (09:08)
[2020-04-14] MEDS ORDERED: propofoL 200 MG/20 ML VIAL As Ordered ONE (09:08)
[2020-04-14] MEDS ORDERED: LIDOCAINE 2% 100MG/5ML SDV (FOR ANES.) As Ordered ONE (09:08)
--- NOTE | 2020-04-14 10:43 | ROOR ---
Patient Name: Ludmila Interiano Procedure Date: 04/14/2020 10:13 AM Date of : 1950 Age: 69 Room: [facility] Gender: Female Note Status: Finalized Procedure: Upper Endoscopy + Biopsies Indications: Dysphagia, Heartburn Providers: Marcail Jiang MD Referring MD: Tr Malik MD Requesting Provider: Medicines: Monitored Anesthesia Care Complications: No immediate complications. Procedure: Pre-Anesthesia Assessment: - The heart rate, respiratory rate, oxygen saturations, blood pressure, adequacy of pulmonary ventilation, and response to care were monitored throughout the procedure. The Endoscope was introduced through the mouth, and advanced to the second part of duodenum. The upper GI endoscopy was accomplished without difficulty. The patient tolerated the procedure well. Findings: The Z-line was irregular and was found 37 cm from the incisors. Multiple biopsies were obtained with cold forceps for evaluation to rule out Ross's Esophagus randomly at the gastroesophageal junction. Diffuse mildly erythematous mucosa without bleeding was found in the gastric antrum. Biopsies were taken with a cold forceps for Helicobacter pylori testing. The exam of the duodenum was otherwise normal. Impression: - Z-line irregular, 37 cm from the incisors. - Erythematous mucosa in the antrum. Biopsied. - Multiple biopsies were obtained at the gastroesophageal junction. - The examination was otherwise normal. Recommendation: - Patient has a contact number available for emergencies. The signs and symptoms of potential delayed complications were discussed with the patient. Return to normal activities tomorrow. Written discharge instructions were provided to the patient. - High fiber diet. - Discharge patient to home. - Follow an antireflux regimen. - Continue present medications. - Await pathology results. - Telephone GI clinic for pathology results in 1 week. - Return to referring physician. - The findings and recommendations were discussed with the patient. Marcial Jiang MD Marcial Jiang MD 04/14/2020 10:43:01 AM Electronically signed by Marcial Jiang MD Number of Addenda: 0 Note Initiated On: 04/14/2020 10:13 AM Estimated Blood Loss: Estimated blood loss: none.
[2020-04-14] MEDS ORDERED: ePHEDrine SULFATE 25 MG/5 ML(5MG/ML) SYRINGE As Ordered ONE (10:54)
--- NOTE | 2020-04-14 11:03 | ROOR ---
Patient Name: Ludmila Interiano Procedure Date: 04/14/2020 10:14 AM Date of : 1950 Age: 69 Room: [facility] Gender: Female Note Status: Finalized Procedure: Total Colonoscopy to Cecum Indications: Screening for colorectal malignant neoplasm Providers: Marcial Jiang MD Referring MD: Tr Malik MD Requesting Provider: Medicines: Monitored Anesthesia Care Complications: No immediate complications. Procedure: Pre-Anesthesia Assessment: - The heart rate, respiratory rate, oxygen saturations, blood pressure, adequacy of pulmonary ventilation, and response to care were monitored throughout the procedure. The Colonoscope was introduced through the anus and advanced to the cecum, identified by appendiceal orifice and ileocecal valve. The colonoscopy was performed without difficulty. The patient tolerated the procedure well. The quality of the bowel preparation was good. Findings: The perianal and digital rectal examinations were normal. Non-bleeding internal hemorrhoids were found during retroflexion. The hemorrhoids were small and Grade I (internal hemorrhoids that do not prolapse). Multiple small and large-mouthed diverticula were found in the recto-sigmoid colon, sigmoid colon and descending colon. The exam was otherwise without abnormality on direct and retroflexion views. Impression: - Non-bleeding internal hemorrhoids. - Diverticulosis in the recto-sigmoid colon, in the sigmoid colon and in the descending colon. - The examination was otherwise normal on direct and retroflexion views. - No specimens collected. - The exam was otherwise normal to the cecum. Recommendation: - Patient has a contact number available for emergencies. The signs and symptoms of potential delayed complications were discussed with the patient. Return to normal activities tomorrow. Written discharge instructions were provided to the patient. - High fiber diet. - Discharge patient to home. - Continue present medications. - Repeat colonoscopy in 10 years for screening purposes. - Return to referring physician. - The findings and recommendations were discussed with the patient. Marcial Jiang MD Marcial Jiang MD 04/14/2020 11:02:22 AM Electronically signed by Marcial Jiang MD Number of Addenda: 0 Note Initiated On: 04/14/2020 10:14 AM Estimated Blood Loss: Estimated blood loss: none.
[2020-04-14 11:41] VITALS: BP 140/90
[2020-04-14] MEDS ORDERED: ZOFR4TAB16 PO (15:22)
[2020-04-14] MEDS ORDERED: MIRA3350 PO (15:27)
[2020-04-14] MEDS ORDERED: META0.52 PO (15:27)
== END 2020-04-14 11:45 | disposition home or self-care (01) ==
LOC: M OPP 08:33
PROVIDERS: ATTEND Internal Medicine Gastroenterology
DX: Z12.11 Encounter for screening for malignant neoplasm of colon (principal); K59.00 Constipation, unspecified; R13.10 Dysphagia, unspecified; R12 Heartburn; K64.0 First degree hemorrhoids; K57.30 Diverticulosis of large intestine without perforation or abscess without bleeding; D13.0 Benign neoplasm of esophagus; D13.1 Benign neoplasm of stomach; K22.8 Other specified diseases of esophagus; K31.89 Other diseases of stomach and duodenum; E10.9 Type 1 diabetes mellitus without complications; I10 Essential (primary) hypertension; F41.9 Anxiety disorder, unspecified; J44.9 Chronic obstructive pulmonary disease, unspecified; G47.33 Obstructive sleep apnea (adult) (pediatric); Z88.5 Allergy status to narcotic agent; Z88.8 Allergy status to other drugs, medicaments and biological substances; Z79.82 Long term (current) use of aspirin; Z79.4 Long term (current) use of insulin; Z79.899 Other long term (current) drug therapy
CPT/HCPCS: 43239; 88305; G0121; J3010

== ENCOUNTER → 2020-04-16 | Outpatient (CLI) | payer OTHER, MEDICAID ==
[~2020-04-16] MED LIST changes: +ACET-683 PO; +LEVO250T12 PO; +META0.52 PO; +METO25TA PO; +MIRA3350 PO; +NOVOINJ3 SC; -NS 1,000 ML IV ONE; +NYST10006 TOP; +TORS20TA2 PO; +ZOFR4TAB16 PO
== END ==
LOC: M LABSMTC 13:19
PROVIDERS: ATTEND Anesthesiology
DX: Z01.812 Encounter for preprocedural laboratory examination (principal); Z20.828 Contact with and (suspected) exposure to other viral communicable diseases

== ENCOUNTER → 2020-04-16 | Outpatient (CLI) | payer OTHER, MEDICAID ==
[2020-04-16 14:47] LABS: HEMATOCRIT 35.4 % (36.0-47.0); HEMOGLOBIN 10.2 g/dl (12.0-15.5); MEAN CORPUSCULAR HEMOGLOBIN 26.8 pg (27.0-33.0); MEAN CORPUSCULAR HGB CONC 28.8 g/dl (32.0-36.5); MEAN CORPUSCULAR VOLUME 93.2 fl (80.0-96.0); PLATELET COUNT, AUTOMATED 331 10^3/uL (150-450); WHITE BLOOD COUNT 10.8 10^3/uL (4.0-10.0)
[2020-04-16 15:11] LABS: CALCIUM LEVEL 9.9 MG/DL (8.8-10.2); CREATININE FOR GFR 2.37 MG/DL (0.55-1.30); GLOMERULAR FILTRATION RATE 21.8 (>45); POTASSIUM SERUM 4.2 MEQ/L (3.5-5.1)
--- NOTE | 2020-04-18 12:10 | ECGEPIP ---
[facility] Test Date: 2020-04-16 Pat Name: WALLACE TINEO Department: Room: - Gender: Female Corporate Legal Assistant: JEANNE : 1950 Requested By: JULIANNA Craig Order Number: [id number] Reading MD: Douglas Cordova Measurements Intervals [place] Rate: 72 P: 38 MO: 137 QRS: -66 QRSD: 133 T: 3 QT: 396 QTc: 435 Interpretive Statements SINUS RHYTHM RIGHT BUNDLE BRANCH BLOCK(NEW) LEFT ANTERIOR FASCICULAR BLOCK(NEW) Compared to prior tracing in the system, 03/29/17 at 12:29 Electronically Signed on 04-18-2020 12:10:14 EDT by Douglas Cordova
--- NOTE | 2020-04-26 14:39 | REP ---
TWO-VIEW CHEST HISTORY: Hydronephrosis preop. TECHNIQUE: Two views of the chest are performed and compared to prior study of 03/15/2020. FINDINGS: There is no change since the prior exam. There is moderate cardiomegaly. There is mild chronic vascular and interstitial prominence in both lungs. No new infiltrate is seen. Mediastinal is unchanged. There is mild calcification of the thoracic aorta. There are diffuse degenerative changes of the spine. IMPRESSION: No acute infiltrate. Stable moderate cardiomegaly, as well as mild vascular and interstitial prominence, unchanged since the prior exam. MTDD
== END ==
LOC: M LAB 13:40
PROVIDERS: ATTEND Urology
DX: Z01.812 Encounter for preprocedural laboratory examination (principal); Z20.828 Contact with and (suspected) exposure to other viral communicable diseases; N13.1 Hydronephrosis with ureteral stricture, not elsewhere classified; N39.0 Urinary tract infection, site not specified; I51.7 Cardiomegaly
CPT/HCPCS: 36415; 71046; 80048; 85027; 87086; 93005; C9803; U0003

== ENCOUNTER 2020-04-21 13:45 | Day surgery (SDC) | payer OTHER, MEDICAID ==
[~2020-04-21] VITALS: Ht 160 cm; Wt 100.2 kg
[~2020-04-21 13:45] MED LIST changes: -ACET-683 PO; -LEVO250T12 PO; +LR 1,000 ML IV ONE; -METO25TA PO; -NOVOINJ3 SC; -NYST10006 TOP; -TORS20TA2 PO; +ceFAZolin SOD 2 GM in IV 1 EA IV ONE
[2020-04-21] MEDS ORDERED: ACET-683 PO (14:29)
[2020-04-21] MEDS ORDERED: D5W/0.2% SODIUM CHLORIDE 1,000 ML IV ONE (14:45)
[2020-04-21] MEDS ORDERED: propofoL 200 MG/20 ML VIAL As Ordered ONE (15:10)
[2020-04-21] MEDS ORDERED: MIDAZOLAM INJ 2MG/2ML VIAL (J2250 PER 1MG) As Ordered ONE (15:10)
[2020-04-21] MEDS ORDERED: fentaNYL 100 MCG/2 ML INJECTION (J3010) As Ordered ONE (15:10)
[2020-04-21] MEDS ORDERED: LIDOCAINE 2% 100MG/5ML SDV (FOR ANES.) As Ordered ONE (15:10)
[2020-04-21] MEDS ORDERED: LIDOCAINE 2% 5ML JELLY UROJET As Ordered ONE (15:30)
[2020-04-21] MEDS ORDERED: CONRAY-60 60% 50ML VIAL (Q9961) As Ordered ONE (15:30)
--- NOTE | 2020-04-21 16:51 | ROOPDOC ---
[facility] Report Of Operation Report of Operation DATE OF PROCEDURE: 04/21/20 PREPROCEDURE DIAGNOSIS: Right hydronephrosis. POSTPROCEDURE DIAGNOSIS: Right hydronephrosis. PROCEDURE: Cystoscopy, Right Ureteral Stent Exchange, Right Retrograde Pyelogram with Intraoperative Interpretation of Images. SURGEON: Julianna Jorge MD FUND RAISER: None. ANESTHESIA: Monitored anesthesia care (MAC). 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 This is managed with chronic ureteral stenting. She is brought to the operating room today for the above- listed procedure. DESCRIPTION OF PROCEDURE: The patient was brought to the operating room, and monitored anesthesia care (MAC) anesthesia was administered. Prophylactic antibiotics were infused. She was then placed in the dorsal lithotomy position and prepped and draped in the usual sterile fashion. A rigid cystoscope was inserted into the urethral meatus and advanced into the bladder. The previously placed black silicone ureteral stent was seen. At this point, a guidewire was advanced up the right collecting system alongside the stent. The stent was grasped and withdrawn intact. A 5Fr open ended ureteral catheter was then advanced over the wire and into the right collecting system. The wire was then removed and a retrograde pyelogram was performed. It was notable for mild hydronephrosis and no extravasation. The wire was then advanced back up the right collecting system and the ureteral cather was removed. I then utilized the wire to advance a 7-Upper Sorbian x 26-cm black silicone ureteral stent into the right collecting system. The wire was removed, and there were adequate curls of the stent in the right renal pelvis and in the bladder. The bladder was then emptied of all fluid, and this marked the conclusion of the procedure. The patient was taken out of the dorsal lithotomy position, awakened from anesthesia, and transported to the recovery room in stable condition. ESTIMATED BLOOD LOSS: 5 mL. COMPLICATIONS: None. SPECIMENS: None. PLAN: This patient will need stenting long-term. I will get a follow up renal ultrasound in 6 months and have her follow up in the urology clinic at that time. JULIANNA JORGE MD Apr 21, 2020 16:51
[2020-04-21 17:30] VITALS: BP 168/74
--- NOTE | 2020-04-26 14:40 | REP ---
C-ARM VIEWS ABDOMEN AND PELVIS HISTORY: Right ureteral stent exchange. TECHNIQUE: Three C-arm views abdomen and pelvis performed. FINDINGS: Contrast partially opacifies the right ureter. There appears to be duplication of the right renal collecting system. This is also partially opacified. There is dilatation of the collecting system of the upper pole. A right ureteral stent is placed. The proximal end is visualized in the right upper pole pelvicalyceal system. The distal end is in the urinary bladder. FLUROSCOPY TIME: 49 seconds utilized. MTDD
== END 2020-04-21 17:30 | disposition home or self-care (01) ==
LOC: M SDC 13:45
PROVIDERS: ATTEND Urology
DX: N13.1 Hydronephrosis with ureteral stricture, not elsewhere classified (principal); I48.91 Unspecified atrial fibrillation; I25.2 Old myocardial infarction; I10 Essential (primary) hypertension; E78.5 Hyperlipidemia, unspecified; M10.9 Gout, unspecified; N18.9 Chronic kidney disease, unspecified; Z79.899 Other long term (current) drug therapy; Z79.82 Long term (current) use of aspirin; Z79.4 Long term (current) use of insulin; Z88.5 Allergy status to narcotic agent; Z88.8 Allergy status to other drugs, medicaments and biological substances; F41.9 Anxiety disorder, unspecified; E11.9 Type 2 diabetes mellitus without complications; G47.30 Sleep apnea, unspecified
CPT/HCPCS: 36415; 52332; 74420; 84132; C1769; C2617; J0690; J2250; J3010; Q9961

== ENCOUNTER 2020-04-26 11:29 | Inpatient (IN) | payer OTHER, MEDICAID ==
[~2020-04-26] VITALS: Ht 165.1 cm; Wt 105.4 kg
[~2020-04-26 11:29] MED LIST changes: +ACET-683 PO; -LR 1,000 ML IV ONE; -ceFAZolin SOD 2 GM in IV 1 EA IV ONE
--- NOTE | 2020-04-26 12:00 | REPVR ---
PROCEDURE INFORMATION: Exam: XR Chest, 1 View Exam date and time: 04/26/2020 11:52 AM Age: 69 years old Clinical indication: Dyspnea and shortness of breath; Additional info: Dyspnea/cough TECHNIQUE: Imaging protocol: XR of the chest Views: 1 view. COMPARISON: CR Chest, 2 view PA, Lat 04/16/2020 2:28 PM (report not provided) FINDINGS: Lungs: The pulmonary vasculature now appears mildly congested. The lungs are otherwise clear. Pleural space: A small right pleural effusion has developed. The left costophrenic angle is sharp. No pneumothorax is identified. Heart/Mediastinum: The cardiomediastinal silhouette is fairly stable in appearance, with similar cardiomegaly. Bones/joints: Degenerative changes again involve the spine. IMPRESSION: Cardiomegaly, as on 04/16/20, with mild new pulmonary vascular congestion and small new right pleural effusion. Electronically signed by: Chevy Drake On 04/26/2020 12:00:19 PM
[2020-04-26] MEDS ORDERED: NOVOINJ3 SC (12:46)
[2020-04-26] MEDS ORDERED: LEVO250T12 PO (12:46)
[2020-04-26] MEDS ORDERED: TORS20TA2 PO (12:46)
[2020-04-26 13:03] LABS: BASO # 0.1 10^3/uL (0.0-0.2); BASO % 0.5 % (0.0-1.0); EOS # 0.2 10^3/uL (0.0-0.5); EOS % 2.3 % (0.0-3.0); HEMATOCRIT 35.9 % (36.0-47.0); HEMOGLOBIN 10.6 g/dl (12.0-15.5); LYMPH # 0.9 10^3/uL (1.5-5.0); LYMPH % 9.4 % (24.0-44.0); MEAN CORPUSCULAR HEMOGLOBIN 27.4 pg (27.0-33.0); MEAN CORPUSCULAR HGB CONC 29.5 g/dl (32.0-36.5); MEAN CORPUSCULAR VOLUME 92.8 fl (80.0-96.0); MONO # 0.6 10^3/uL (0.0-0.8); MONO % 6.4 % (0.0-5.0); NEUTROPHILS # 7.9 10^3/uL (1.5-8.5); NEUTROPHILS % 80.9 % (36.0-66.0); PLATELET COUNT, AUTOMATED 404 10^3/uL (150-450); RED BLOOD COUNT 3.87 10^6/uL (4.00-5.40); WHITE BLOOD COUNT 9.8 10^3/uL (4.0-10.0)
[2020-04-26 13:29] LABS: INR 0.97; PROTHROMBIN TIME 13.1 SECONDS (12.5-14.3)
[2020-04-26 14:03] LABS: ALBUMIN 3.5 GM/DL (3.2-5.2); BILIRUBIN,DIRECT 0.2 MG/DL (0.0-0.2); BILIRUBIN,TOTAL 0.4 MG/DL (0.2-1.0); THYROID STIMULATING HORMONE 3.2 uIU/ML (0.358-3.740); TOTAL PROTEIN 7.2 GM/DL (6.4-8.2)
[2020-04-26] MEDS ORDERED: FUROSEMIDE 100MG/10ML VIAL (J1940) IV ONE (14:45)
[2020-04-26] MEDS ORDERED: FUROSEMIDE 40MG/4ML VIAL (J1940) IV SCH (16:00)
[2020-04-26] MEDS ORDERED: GLUCAGON INJ 1MG VIAL SC PRN (16:45)
[2020-04-26] MEDS ORDERED: MIRALAX *UNIT DOSE* 17GM PACKET PO PRN (16:45)
[2020-04-26] MEDS ORDERED: GLUCOSE 4GM CHEW TABLET PO PRN (16:45)
[2020-04-26] MEDS ORDERED: FLUTICASONE PROP 0.05% NASAL SPRAY 16 GM (FLONASE) PRN (16:45)
[2020-04-26] MEDS ORDERED: DEXTROSE 50% 50 ML SYRINGE IV PRN (16:45)
--- NOTE | 2020-04-26 16:54 | ECGEPIP ---
[facility] - ED Test Date: 2020-04-26 Pat Name: WALLACE TINEO Department: Room: [place] [address] Gender: Female Customer Service Analyst: ENID : 1950 Requested By: Oralia Palacio Order Number: [id number] Reading MD: Oralia Palacio Measurements Intervals [place] Rate: 72 P: 159 NM: 140 QRS: -55 QRSD: 128 T: 16 QT: 434 QTc: 477 Interpretive Statements SINUS RHYTHM RIGHT BUNDLE BRANCH BLOCK LEFT ANTERIOR FASCICULAR BLOCK SIMILAR 04/16/20 Electronically Signed on 04-26-2020 16:54:30 EDT by Oralia Palacio
[2020-04-26] MEDS ORDERED: ACETAMINOPHEN TAB 650MG DOSE (2X325MG) PO PRN (17:00)
--- NOTE | 2020-04-26 18:05 | HPEPDOC ---
[facility] Medical History & Physical Date of Admission Apr 26, 2020 Date of Service: Apr 26, 2020 Primary Care Physician: Tr Malik MD History and Physical CHIEF COMPLAINT: Shortness of breath. HISTORY OF PRESENT ILLNESS: Ms. Interiano is a 69 yo F with a PMHx of HFpEF, HTN, IDDM, CKD, and Afib that presented to the ED at the suggestion of her dr (Dr. Casper) after presenting to an appointment feeling short of breath and appearing fluid overloaded. She is currently undergoing workup for a lung disease with Dr. Casper. She states that she has recently had her diuretic regimen changed and she hasn't been able to get any fluid off. She says she is urinating very little volumes. She endorses 5+ lb weight gain within the past 3 days. Pt denies fever, chills, cough, nausea, vomiting, or diarrhea. PAST MEDICAL HISTORY: 1. HFpEF 2. IDDM 3. Afib 4. HTN 5. CKD 6. Gout 7. Anxiety PAST SURGICAL HISTORY: 1. 3 Heart stent placements 2. Kidney stent placed last week (04/21/2020) 3. Tubal ligation 4. 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 FAMILY HISTORY: Non contributory ALLERGIES: Please see below. REVIEW OF SYSTEMS: CONSTITUTIONAL: Denies fever, chills, weight loss, night sweats. HEENT: Denies headache, rhinorrhea, sore throat, ear pain. CARDIOVASCULAR: Denies palpitations, chest pain, tightness. RESPIRATORY: Admits to shortness of breath. Denies cough, sputum production. GASTROINTESTINAL: Denies nausea, vomiting, diarrhea, constipation. GENITOURINARY: Denies dysuria. SKIN: Denies new rashes or lesions. MUSCULOSKELETAL: Denies muscle or joint pain. NEUROLOGICAL: Denies weakness, dizziness, sensory changes, vision changes. HOME MEDICATIONS: Please see below. PHYSICAL EXAMINATION: VITAL SIGNS: Temperature 97.4, pulse 72, respiratory rate 22, blood pressure 154/68, pulse oximetry 98% on 2L nasal cannula. GENERAL APPEARANCE: Pt was seen lying in bed in no acute distress. HEENT: NC, AT, no scleral icterus, no pharyngeal erythema. CARDIOVASCULAR: RRR, no murmurs, rubs, or gallops. LUNGS: low tidal volume, mild to moderate crackles on R lung base, no accessory muscle use. ABDOMEN: soft, obese, remarkably distended, nontender, bowel sounds present in all quadrants. EXTREMITIES: 1+ pitting edema R LE, no other swelling or edema. NEUROLOGICAL: CN III-XII grossly in tact, AAOx3. PSYCHIATRIC: Normal mood and affect. LABORATORY DATA: See below. IMAGING: -CXR 04/26/2020: Impression "Cardiomegaly, as on 04/16/20, with mild new pulmonary vascular congestion and small new right pleural effusion." MICROBIOLOGY: Please see below. ASSESSMENT: Ms. Interiano is a 69 yo F with a PMHx of IDDM, Afib, HTN, CKD, and HFpEF who presented to the ED at the suggestion of her dr (Dr. Casper) c omplaining of shortness of breath and was found to have a pleural effusion and pulmonary vascular congestion on CXR concerning for worsening pulmonary HTN vs worsening CKD. PLAN: #. Shortness of breath likely 2/2 to right heart failure from severe pulmonary HTN and obesity hypoventilation syndrome vs JOSÉ ANTONIO. -Pt will continue to use home CPAP and 2L supplemental O2 nasal cannula; titrate O2 to 94% saturation -Diurese pt with metolazone (one time) and Lasix 40mg TID; home torsemide and spironolactone held. -Obesity complicating care -Prescribed incentive spirometer. #. Right sided heart failure likely 2/2 to severe pulmonary HTN -RVSP estimated on 07/2019 echocardiogram to be 65-70 indicating severe pulmonary HTN -Inpatient CPAP orders placed with home pressure setting of 8. -Pt will be diuresed with metolazone (one time) and Lasix 40mg TID. -1.5L fluid restriction. -2g Na diet. -Strict I&O monitoring q4h. #. Elevated troponin likely 2/2 R heart strain -Initial troponin 0.29, troponin at 1700 0.28, repeat troponin at 2100 -Pt denies chest pain, tightness therefore trop elevation thought to be less likely due to ACS and more likely due to R heart strain. -EKG in ED shows sinus rhythm and is comparable to EKG from 04/16 #. RICKY on CKD stage 4 -Serum creatinine 2.9 in ED; on review, recent baseline appears to be around 2.3 -Holding nephrotoxic drugs (allopurinol) and home torsemide and spironolactone. -Pt will receive diuretics as discussed above. -Monitor creatinine and BUN #. IDDM -Pt to receive insulin Levemir 20 units BID and SSI. -Hypoglycemic protocol -Consistent carbohydrate diet and 2g Na diet #. Presumed paroxysmal Afib not on home anticoagulation -Sinus rhythm with controlled rate since presentation. EKG relatively unchanged from 10 days ago. #. HTN -Continue home amlodipine. -Holding home torsemide and spironolactone. #. Obesity, BMI 38.7 -Complicates care, likely factoring in to decreased tidal volume and cor pulmonale. #. Gout -Holding home allopurinol. #. Anxiety -Continue home buspirone DVT Prophylaxis: Lovenox 40mg daily Vital Signs Vital Signs Date Time Temp Pulse Resp B/P (MAP) Pulse Ox O2 Delivery O2 Flow Rate FiO2 04/26/20 13:11 97.4 72 22 154/68 (96) 98 Nasal Cannula 2.0 Laboratory Data Labs 24H Laboratory Tests 2 04/26/20 12:50: Immature Granulocyte % (Auto) 0.5, Neutrophils (%) (Auto) 80.9H, Lymphocytes (%) (Auto) 9.4L, Monocytes (%) (Auto) 6.4H, Eosinophils (%) (Auto) 2.3, Basophils (%) (Auto) 0.5, Neutrophils # (Auto) 7.9, Lymphocytes # (Auto) 0.9L, Monocytes # (Auto) 0.6, Eosinophils # (Auto) 0.2, Basophils # (Auto) 0.1, Nucleated Red Blood Cells % (auto) 0.0, Prothrombin Time 13.1, Prothromb Time International R atio 0.97, Total Bilirubin 0.4, Direct Bilirubin 0.2, Aspartate Amino Transf (AST/SGOT) 18, Alanine Aminotransferase (ALT/SGPT) 17, Alkaline Phosphatase 181H, TL-Glf-S-Type Natriuretic Peptide 2380H, Total Protein 7.2, Albumin 3.5, Albumin/Globulin Ratio 0.9L, Thyroid Stimulating Hormone (TSH) 3.200 04/26/20 12:55: POC Glucose (Misc Panel) 97, POC Sodium (Misc Panel) 143, POC Potassium (Misc Panel) 3.7, POC Chloride (Misc Panel) 103, POC Total CO2 (Misc Panel) 26.0, POC Blood Urea Nitrogen (Misc Panel 47H, POC Ionized Calcium (Misc Panel) 5.1, POC Creatinine (Misc Panel) 2.9H, POC Hematocrit (Misc Panel) 37.0L 04/26/20 12:57: POC Troponin I (Misc) 0.29H CBC/BMP Laboratory Tests 04/26/20 12:50 Home Medications Scheduled Amlodipine Besylate (Amlodipine Besylate) 5 Mg Tablet, 5 MG PO DAILY Aspirin (Aspir 81) 81 Mg Tablet.dr, 81 MG PO DAILY Atorvastatin Calcium (Atorvastatin Calcium) 40 Mg Tab, 40 MG PO QHS Buspirone HCl (Buspirone HCl) 5 Mg Tablet, 5 MG PO BID Ferrous Sulfate (Iron) 325 Mg Tablet, 325 MG PO QHS Furosemide (Furosemide) 40 Mg Tablet, 40 MG PO BID@0900,1700 -first of two doses of medication each day should be taken at same time as metolazone Insulin Aspart (Novolog Flexpen) 100 Unit/1 Ml Insuln.pen, 1 DOSE SC TID PER SLIDING SCALE Insulin Glargine (Lantus) 1 Units/0.01 Ml Susp, 40 UNITS SC QAM Insulin Glargine (Lantus) 100 Unit/1 Ml Vial, 30 UNITS SC QHS Magnesium Oxide (Magnesium Oxide) 400 Mg Tablet, 400 MG PO BID Melatonin (Melatonin) 10 Mg Capsule, 10 MG PO QHS Metolazone (Metolazone) 2.5 Mg Tablet, 2.5 MG PO DAILY Take at the same time as the first dose of furosemide Pantoprazole Sodium (Protonix) 40 Mg Tablet.dr, 40 MG PO BID Scheduled PRN Acetaminophen (Acetaminophen) 500 Mg Tablet, 500 MG PO for PAIN Fluticasone Propionate (Flonase Allergy Relief) 50 Mcg/Act Spr, 2 SPRAYS NA DAILY PRN for allergies Nystatin (Nystop) 60 Gm Powder, 0 DOSE TOP BIDP PRN for RASH apply to affected areas 2 to 3 times daily until healing is complete Polyethylene Glycol 3350 (Miralax) 119 Gm Powder, 17 GM PO DAILY PRN for CONSTIPATION dilute in 8 ounces of water or juice Allergies Coded Allergies: rosiglitazone (Verified Allergy, Severe, anaphylaxis, 9/30/20) TAPE (Verified Allergy, Intermediate, 04/14/20) use elastic bandage or paper tape ranolazine (Verified Allergy, Intermediate, low BP, swelling, 04/14/20) niacin (Verified Allergy, Mild, itching, 04/14/20) BREONNA Inhibitors (Verified Adverse Reaction, Intermediate, cough, 04/14/20) pioglitazone (Verified Adverse Reaction, Intermediate, heart races, 04/14/20) tramadol (Verified Adverse Reaction, Mild, nausea/vomiting, 04/14/20) GME ATTESTATION GME ATTESTATION My faculty preceptor for this patient encounter was physically present during the encounter and was fully available. All aspects of the patient interview, examination, medical decision making process, and medical care plan development were reviewed and approved by the faculty preceptor. The faculty preceptor is aware and concurs with the plan as stated in the body of this note and will attest to such by his/her cosignature. ATTENDING NOTE Patient was seen and examined by me personally with the residents and the students. Agree with the above assessment and plan. KATHY SWAIN OMS-3 Apr 26, 2020 17:30 GEORGIANA HERRON MD Apr 30, 2020 14:02
[2020-04-26] MEDS: HumaLOG INSULIN (NovoLOG) PER UNIT SC SCH ×2 (18:50→21:00)
[2020-04-26] MEDS ORDERED: metOLazone 5 MG TAB PO ONE (20:00)
[2020-04-26 20:10] VITALS: BP 121/66
[2020-04-26 21:00] VITALS: O2SAT 96
[2020-04-26] MEDS: FERROUS SULFATE 325MG TAB PO SCH (21:15)
[2020-04-26] MEDS: busPIRone 5 MG TAB PO SCH (21:16)
[2020-04-26] MEDS: ATORVASTATIN 20 MG TAB PO SCH (21:16)
[2020-04-26] MEDS: MAGNESIUM OXIDE 400 MG TAB (MAG-OX) PO SCH (21:16)
[2020-04-26] MEDS: LEVEMIR (INSULIN DETEMIR) 1 UNITS/0.01ML SC SCH (21:18)
[2020-04-26] MEDS ORDERED: RAMELTEON 8 MG TAB (ROZEREM) PO ONE (22:15)
[2020-04-27] MEDS: FUROSEMIDE 40MG/4ML VIAL (J1940) IV SCH ×4 (00:19→23:57)
[2020-04-27 06:00] VITALS: BP 158/68
[2020-04-27 06:43] LABS: CALCIUM LEVEL 9.9 MG/DL (8.8-10.2); CREATININE FOR GFR 2.62 MG/DL (0.55-1.30); GLOMERULAR FILTRATION RATE 19.4 (>45)
[2020-04-27] MEDS: ENOXAPARIN 40MG/0.4ML SYRINGE (J1650 PER 10MG) SC SCH (07:54)
[2020-04-27] MEDS: busPIRone 5 MG TAB PO SCH ×2 (07:55→21:40)
[2020-04-27] MEDS: LEVEMIR (INSULIN DETEMIR) 1 UNITS/0.01ML SC SCH ×2 (07:55→21:41)
[2020-04-27] MEDS: ASPIRIN 81 MG ENTERIC TAB PO SCH (07:55)
[2020-04-27] MEDS: MAGNESIUM OXIDE 400 MG TAB (MAG-OX) PO SCH ×2 (07:55→21:40)
[2020-04-27] MEDS: amLODIPine 5 MG TAB PO SCH (07:56)
[2020-04-27] MEDS: HumaLOG INSULIN (NovoLOG) PER UNIT SC SCH ×4 (07:58→21:41)
--- NOTE | 2020-04-27 09:21 | IPNPDOC ---
Text Note Date of Service The patient was seen on 04/27/20. NOTE HPI: Ms. Interiano is a 69 yo F with a PMHx of HFpEF, CKD, and Afib that presented to the ED at the suggestion of her Dr (Dr. Casper) after presenting to an appointment feeling short of breath. SUBJECTIVE: No acute events overnight. Pt states that she is feeling better than yesterday, her breathing has improved, and she is urinating a lot more than when she came in. She was able to sleep well last night with her CPAP and O2. Pt denies chest pain, fever, chills, nausea, vomiting, or diarrhea. OBJECTIVE: VITAL SIGNS: please see below. GENERAL: Pt appears lying in bed comfortably in no acute distress. HEENT: NC, AT, EOMI, no scleral icterus, no pharyngeal erythema. CV: RRR, no murmurs, rubs, or gallops. LUNGS: low tidal volume, mild to moderate crackles on R lung base, no accessory muscle use. ABDOMEN: soft, obese, remarkably distended, nontender, bowel sounds present in all quadrants. EXTREMITIES: no swelling or edema. NEURO: CN III-XII grossly intact PSYCH: normal mood and affect. LABORATORY: please see below. MICROBIOLOGY: None. IMAGING: -CXR 04/26/2020: Impression "Cardiomegaly, as on 04/16/20, with mild new pulmonary vascular congestion and small new right pleural effusion." ASSESSMENT/PLAN: Ms. Interiano is a 69 yo F with a PMHx of IDDM, Afib, HTN, CKD, and HFpEF who presented to the ED at the suggestion of her Dr (Dr. Casper) complaining of shortness of breath and was found to have a pleural effusion and pulmonary vascular congestion on CXR concerning for acute decompensation of CHF vs worsening pulmonary HTN #. Shortness of breath likely 2/2 to right-sided heart failure from severe pulmonary HTN and obesity hypoventilation syndrome -Pt will continue to use CPAP and 2L supplemental O2 nasal cannula; Titrate O2 to >90% saturation. -Continue Lasix 40mg TID; continue holding home torsemide and spironolactone. -Patient had net negative ~1L overnight -Another dose of Metolazone 5mg given today -Obesity complicating care. -Continue using incentive spirometer. #. Right sided heart failure likely 2/2 to severe pulmonary HTN -RVSP estimated on 07/2019 echocardiogram to be 65-70 indicating severe pulmonary HTN. -Inpatient CPAP with home pressure setting of 8. -Continue Lasix 40mg TID. -1.5L fluid restriction. -2g Na diet. -Strict I&O monitoring q4h. #. Elevated troponin likely 2/2 to R heart strain -Initial troponin 0.29, trending down, latest at 2105 on 04/26 was 0.25. -Pt denies chest pain or tightness therefore trop elevation thought to be less likely due to ACS and more likely due to R heart strain. -EKG in ED shows sinus rhythm and is comparable to EKG from 04/16. #. RICKY on CKD stage 4 -Serum creatinine today (04/27) 2.62, down from 2.9 yesterday in the ED; recent baseline appears to be around 2.3 -Holding nephrotoxic drugs (allopurinol) and home torsemide and spironolactone. -Pt will continue to receive diuretics as discussed above. -Monitor creatinine and BUN. #. IDDM -FSBS 04/27 was 113. -Continue insulin Levemir 20 units BID and SSI. -Hypoglycemic protocol. -Consistent carbohydrate and 2g Na diet. #. Presumed paroxysmal Afib not on home anticoagulation. -Sinus rhythm with controlled rate since presentation. EKG relatively unchanged from 11 days ago. #. HTN -Continue home amlodipine. -Continue holding home torsemide and spironolactone. #. Obesity, BMI 40.2 -Complicates care, likely factoring in to decreased tidal volume and cor pulmonale. #. Gout -Holding home allopurinol. #. Anxiety -Continue home buspirone. DVT Prophylaxis: Lovenox 40mg daily VS,Fishbone, I+O VS, Fishbone, I+O Laboratory Tests 04/26/20 12:50 04/27/20 06:02 Vital Signs Date Time Temp Pulse Resp B/P (MAP) Pulse Ox O2 Delivery O2 Flow Rate FiO2 04/27/20 07:56 77 158/68 04/27/20 06:00 97.9 18 95 Nasal Cannula 2.5 I&O- Last 24 Hours up to 6 AM 04/27/20 06:00 Intake Total 360 ml Output Total 1250 ml Balance -890 ml GME ATTESTATION GME ATTESTATION My faculty preceptor for this patient encounter was physically present during the encounter and was fully available. All aspects of the patient interview, examination, medical decision making process, and medical care plan development were reviewed and approved by the faculty preceptor. The faculty preceptor is aware and concurs with the plan as stated in the body of this note and will attest to such by his/her cosignature. ATTENDING NOTE Patient was seen and examined by me personally with the residents and the students. Agree with the above assessment and plan. KATHY SWAIN OMS-3 Apr 27, 2020 09:21 LAURENCE TREADWELL MD Apr 27, 2020 17:02 GEORGIANA HERRON MD Apr 30, 2020 14:07
[2020-04-27] MEDS ORDERED: NYSTATIN 100,000 UNITS/GM TOPICAL PWD 15 GM TOP PRN (11:30)
[2020-04-27 14:00] VITALS: BP 147/70
[2020-04-27] MEDS ORDERED: metOLazone 5 MG TAB PO ONE (16:00)
[2020-04-27] MEDS: FERROUS SULFATE 325MG TAB PO SCH (21:40)
[2020-04-27] MEDS: ATORVASTATIN 20 MG TAB PO SCH (21:40)
[2020-04-27 22:00] VITALS: BP 151/69
[2020-04-28 02:44] VITALS: O2SAT 96
[2020-04-28 06:00] VITALS: BP 146/66
[2020-04-28 06:40] LABS: HEMATOCRIT 32.6 % (36.0-47.0); HEMOGLOBIN 9.8 g/dl (12.0-15.5); MEAN CORPUSCULAR HEMOGLOBIN 27.1 pg (27.0-33.0); MEAN CORPUSCULAR HGB CONC 30.1 g/dl (32.0-36.5); MEAN CORPUSCULAR VOLUME 90.3 fl (80.0-96.0); PLATELET COUNT, AUTOMATED 400 10^3/uL (150-450); RED BLOOD COUNT 3.61 10^6/uL (4.00-5.40); WHITE BLOOD COUNT 9.4 10^3/uL (4.0-10.0)
[2020-04-28 07:02] LABS: BILIRUBIN,TOTAL 0.4 MG/DL (0.2-1.0); CALCIUM LEVEL 10.5 MG/DL (8.8-10.2); CREATININE FOR GFR 2.74 MG/DL (0.55-1.30); GLOMERULAR FILTRATION RATE 18.4 (>45); MAGNESIUM LEVEL 2.5 MG/DL (1.8-2.4); PHOSPHORUS LEVEL 3.5 MG/DL (2.5-4.9); POTASSIUM SERUM 3.8 MEQ/L (3.5-5.1)
[2020-04-28] MEDS: LEVEMIR (INSULIN DETEMIR) 1 UNITS/0.01ML SC SCH ×2 (07:58→20:08)
[2020-04-28] MEDS: FUROSEMIDE 40MG/4ML VIAL (J1940) IV SCH (07:59)
[2020-04-28] MEDS: HumaLOG INSULIN (NovoLOG) PER UNIT SC SCH ×4 (07:59→20:07)
[2020-04-28] MEDS: MAGNESIUM OXIDE 400 MG TAB (MAG-OX) PO SCH ×2 (08:00→20:09)
[2020-04-28] MEDS: ASPIRIN 81 MG ENTERIC TAB PO SCH (08:00)
[2020-04-28] MEDS: busPIRone 5 MG TAB PO SCH ×2 (08:00→20:08)
[2020-04-28] MEDS: amLODIPine 5 MG TAB PO SCH (08:04)
[2020-04-28] MEDS: ENOXAPARIN 40MG/0.4ML SYRINGE (J1650 PER 10MG) SC SCH ×2 (08:04→08:12)
[2020-04-28] MEDS ORDERED: FUROSEMIDE 40 MG TAB PO SCH (11:00)
--- NOTE | 2020-04-28 11:07 | IPNPDOC ---
Text Note Date of Service The patient was seen on 04/28/20. NOTE HPI: Ms. Interiano is a 69 yo F with a PMHx of HFpEF, CKD, and Afib that presented to the ED at the suggestion of her Dr (Dr. Casper) after presenting to an appointment feeling short of breath. SUBJECTIVE: No acute events overnight. Pt states that she is feeling better and that her breathing has improved. She says she has been urinating a lot. She still complains of feeling like there is "fluid on my stomach". She denies chest pain, fever, chills, nausea, or vomiting. OBJECTIVE: VITAL SIGNS: please see below. GENERAL: Pt was seen in a bedside chair, eating breakfast, in no acute distress. HEENT: NC, AT, EOMI, no scleral icterus, no pharyngeal erythema. NECK: no JVD or lymphadenopathy appreciated. CV: RRR, no murmurs, rubs, or gallops. LUNGS: low tidal volume, CTAB, no rales, rhonchi, or wheezes, no accessory muscle use. ABDOMEN: soft, remarkably obese, nontender, bowel sounds present in all quadrants. EXTREMITIES: no swelling or edema. NEURO: CN III-XII grossly intact, no focal deficits. PSYCH: normal mood and affect. LABORATORY: please see below. MICROBIOLOGY: none. IMAGING: -CXR 04/26/2020: Impression "Cardiomegaly, as on 04/16/20, with mild new pulm onary vascular congestion and small new right pleural effusion." ASSESSMENT/PLAN: Ms. Interiano is a 69 yo F with a PMHx of IDDM, Afib, HFpEF, and CKD who presented to the ED at the suggestion of her Dr (Dr. Casper) complaining of shortness of breath and was found to have a pleural effusion and pulmonary vascular congestion on CXR concerning for acute decompensation of CHF vs worsening pulmonary HTN. #. Shortness of breath likely 2/2 to right sided heart failure from severe pulmonary HTN and obesity hypoventilation syndrome -Pt will continue to use CPAP and 2L supplemental O2 nasal cannula; Titrate O2 to >90% saturation. -Switching pt to potential home oral dose of Lasix 40mg BID and 2.5mg m etolazone. -Pt is net negative ~4L last 24hrs -Obesity complicating care. -Continue using incentive spirometer. #. Right sided heart failure likely 2/2 to severe pulmonary HTN -RVSP estimated on 07/2019 echocardiogram to be 65-70 indicating severe pulmonary HTN. -Inpatient CPAP with home pressure setting of 8. -Lasix 40mg oral BID, Metolazone 2.5mg oral daily. -1.5L fluid restriction. -2g Na diet. -Strict I&O monitoring q4h. #. Elevated troponin likely 2/2 to right sided heart strain -Initial troponin 0.29, trending down, last at 2105 on 04/26 was 0.25. -Pt denies chest pain or tightness therefore trop elevation thought to be less likely due to ACS and more likely due to R heart strain. -EKG in ED shows sinus rhythm and is comparable to EKG from 04/16. #. RICKY on CKD stage 4 -Serum creatinine today (04/28) 2.7, increased slightly from yesterday 2.62. Upon review of records, recent baseline creatinine 2.3. -Holding nephrotoxic drugs (allopurinol) and home torsemide and spironolactone. -Pt will continue to receive diuretics as discussed above. -Monitor creatinine and BUN. #. IDDM -FSBS 04/28 was 249 -Continue insulin Levemir 20 units BID and SSI. -Hypoglycemic protocol. -Consistent carbohydrate and 2g Na diet. #. Presumed paroxysmal Afib not on home anticoagulation -Sinus rhythm with controlled rate since presentation. EKG relatively unchanged from 2 weeks ago. #. HTN -Continue home amlodipine. -Hold home torsemide and spironolactone. - 2g Na diet and 1.5L fluid restriction. #. Obesity, BMI 38.9 -Complicates care, likely factoring in to decreased tidal volume and cor pulm onale. #. Gout -Holding home allopurinol in the setting of RICKY #. Anxiety -Continue home buspirone DVT Prophylaxis: Lovenox 40mg daily DISPOSITION: Likely discharge tomorrow should adequate diuresis be achieved orally and pt remains clinically stable. VS,Fishbone, I+O VS, Fishbone, I+O Laboratory Tests 04/28/20 06:22 Vital Signs Date Time Temp Pulse Resp B/P (MAP) Pulse Ox O2 Delivery O2 Flow Rate FiO2 04/28/20 08:04 72 138/68 04/28/20 06:00 98.1 18 96 NIPPV (BIPAP/CPAP) 04/28/20 02:44 2.5 I&O- Last 24 Hours up to 6 AM 04/28/20 05:59 Intake Total 750 ml Output Total 4400 ml Balance -3650 ml GME ATTESTATION GME ATTESTATION My faculty preceptor for this patient encounter was physically present during the encounter and was fully available. All aspects of the patient interview, examination, medical decision making process, and medical care plan development were reviewed and approved by the faculty preceptor. The faculty preceptor is aware and concurs with the plan as stated in the body of this note and will attest to such by his/her cosignature. ATTENDING NOTE Patient was seen and examined by me personally with the residents and the students. Agree with the above assessment and plan. KATHY SWAIN OMS-3 Apr 28, 2020 11:07 GEORGIANA HERRON MD Apr 30, 2020 14:11
[2020-04-28 14:00] VITALS: BP 143/64
[2020-04-28] MEDS: FUROSEMIDE 40 MG TAB PO SCH (17:04)
[2020-04-28] MEDS: FERROUS SULFATE 325MG TAB PO SCH (20:08)
[2020-04-28] MEDS: ATORVASTATIN 20 MG TAB PO SCH (20:09)
[2020-04-28 22:00] VITALS: BP 150/66
[2020-04-28 22:19] VITALS: O2SAT 97
[2020-04-29 06:00] VITALS: BP 132/49
[2020-04-29 06:56] LABS: HEMATOCRIT 32.4 % (36.0-47.0); HEMOGLOBIN 9.7 g/dl (12.0-15.5); MEAN CORPUSCULAR HGB CONC 29.9 g/dl (32.0-36.5); MEAN CORPUSCULAR VOLUME 90.3 fl (80.0-96.0); PLATELET COUNT, AUTOMATED 381 10^3/uL (150-450); RED BLOOD COUNT 3.59 10^6/uL (4.00-5.40); WHITE BLOOD COUNT 11.2 10^3/uL (4.0-10.0)
[2020-04-29 08:45] LABS: CALCIUM LEVEL 9.8 MG/DL (8.8-10.2); CREATININE FOR GFR 2.65 MG/DL (0.55-1.30); GLOMERULAR FILTRATION RATE 19.1 (>45); POTASSIUM SERUM 3.7 MEQ/L (3.5-5.1)
[2020-04-29] MEDS ORDERED: metOLazone 2.5 MG TAB PO SCH (09:00)
[2020-04-29] MEDS: HumaLOG INSULIN (NovoLOG) PER UNIT SC SCH (09:24)
[2020-04-29] MEDS: MAGNESIUM OXIDE 400 MG TAB (MAG-OX) PO SCH (09:25)
[2020-04-29] MEDS: ASPIRIN 81 MG ENTERIC TAB PO SCH (09:25)
[2020-04-29] MEDS: busPIRone 5 MG TAB PO SCH (09:25)
[2020-04-29] MEDS: LEVEMIR (INSULIN DETEMIR) 1 UNITS/0.01ML SC SCH (09:25)
[2020-04-29 09:26] VITALS: BP 132/49
[2020-04-29] MEDS: ENOXAPARIN 40MG/0.4ML SYRINGE (J1650 PER 10MG) SC SCH (09:26)
[2020-04-29] MEDS: FUROSEMIDE 40 MG TAB PO SCH (09:26)
[2020-04-29] MEDS: amLODIPine 5 MG TAB PO SCH (09:26)
[2020-04-29] MEDS ORDERED: METO25TA PO (11:38)
[2020-04-29] MEDS ORDERED: NYST10006 TOP (11:38)
[2020-04-29] MEDS ORDERED: FURO40TA2 PO (11:38)
--- NOTE | 2020-05-02 20:53 | DS.PDOC ---
Discharge Summary General Date of Admission Apr 26, 2020 at 14:49 Date of Discharge April Primary Care Physician: Tr Malik MD Attending Physician: GEORGIANA HERRON MD Discharge Summary PROCEDURES PERFORMED DURING STAY: None ADMITTING DIAGNOSES: Shortness of breath, likely secondary to right heart failure from severe pulmonary hypertension and obesity hypoventilation syndrome versus obstructive sleep apnea Right-sided heart failure likely secondary to severe pulmonary hypertension Elevated troponin, likely secondary to right heart strain Acute renal failure on chronic kidney disease stage IV Insulin-dependent diabetes mellitus Presumed paroxysmal atrial fibrillation, not on home anticoagulation medication Essential hypertension Obesity, body mass index 38.7 Gout Anxiety DISCHARGE DIAGNOSES: Shortness of breath, resolved; likely was secondary to right heart failure from severe pulmonary hypertension and obesity hypoventilation syndrome versus obstructive sleep apnea Right-sided heart failure likely secondary to severe pulmonary hypertension Elevated troponin, likely secondary to right heart strain Acute renal failure on chronic kidney disease stage IV Insulin-dependent diabetes mellitus Presumed paroxysmal atrial fibrillation, not on home anticoagulation medication Essential hypertension Obesity, body mass index 38.7 Gout Anxiety Heart failure with preserved ejection fraction/cor pulmonale Physical deconditioning COMPLICATIONS/CHIEF COMPLAINT: CHF. HISTORY OF PRESENT ILLNESS: Ludmila is a 69-year-old female with a PMHx of HFpEF, IDDM, HTN, CKD, and Afib that presented to the [facility] ED on 04/26/2020 at the suggestion of her outpatient pulmonology physician (Dr. Treasure Casper) after presenting to an appointment earlier in the day feeling short of breath and appearing fluid overloaded. She is currently undergoing workup for a lung disease with Dr. Cody bonilla. She states that she has recently had her diuretic regimen changed multiple times (collaboratively between PCP and nephrology physician), and she hasn't been able to get any fluid off. She reports urinating small amounts of late. She endorses a five-plus pound weight gain within the past 3 days. She denies any current fever, chills, cough, nausea, vomiting, or diarrhea. Of note, prior to coming to the floor after admission, she received a one-time 100 mg intravenous furosemide medication administration by the attending emergency department physician. HOSPITAL COURSE: After admission, patient was diuresed with a one-time dose of metolazone as well as a regimen of scheduled furosemide intravenously 40 mg every 8 hours. Her home torsemide and spironolactone diuretics were held. She is also prescribed an incentive spirometer. Based on her recent most recent transthoracic echocard iogram in July 2019, her right ventricular systolic pressure was estimated to be between 6570, which indicates severe pulmonary hypertension area as a result, she was placed on a 1.5 L fluid restriction, with strict intake and output monitoring every 4 hours, as well as a 2 g sodium diet upon admission. In order to help with her right heart strain, she was allowed to use the hospital CPAP at her home pressure setting of 8 until her home machine was subsequently brought in and she then used that. As far as her initial elevated troponins at 0.29, a repeat later in the day at 5 PM on 04/26/2020 was 0.28 and then a final repeat troponin at 9 PM was 0n25, continuing the downward trend. She denied any chest pain or chest pressure. Despite the troponin elevation and the prevailing thought was this was less likely to be do to her ACS and more likely due to the right heart strain. An electrocardiogram in the emergency department showed sinus rhythm and was comparable to her electrocardiogram when she presented to the emergency department just 10 days earlier on 04/16/2020. In terms of her acute kidney injury, her serum creatinine was 2.9 in the emergency department and upon review of her medical record, her recent baseline serum creatinine appeared to be about 2.3. In the setting of her acute renal failure on chronic kidney disease stage IV, all nephrotoxic drugs were held, which included her home allopurinol as well as torsemide and spironolactone. We continue to monitor her serum creatinine and BUN moving forward. During the inpatient stay. As far as her insulin-dependent diabetes mellitus, we continued her long-acting insulin 20 units twice a day. In addition to this, she was placed on a sliding scale insulin regimen as well as a hypoglycemic protocol. Both a consistent carbohydrate and 2 g sodium diet. Orders were placed. She has a presumed paroxysmal atrial fibrillation diagnosis and is not on any home anticoagulation medication. Upon admission and throughout inpatient stay, she remained sinus rhythm with a controlled rate. And as mentioned previously, her elektrocardiogram in the emergency department on 04/26 was relatively unchanged from the emergency department electrocardiogram from 10 days earlier on 04/16. For her history of hypertension, her home amlodipine was held. As mentioned above, her home allopurinol for presumed gout was held in the setting of her acute renal failure on kidney disease stage IV. Her home buspirone for anxiety was continued. It's important note that her BMI of 30.7 indicates obesity hab itus and complicates care significantly as excess adipose tissue increases endemic inflammation in the body. Her obesity likely contributed to her decreased respiratory tidal volume and her baseline cor pulmonale. Ludmila had a good response to the IV diuretic and oral metolazone regimen and was ultimately switched on the day prior to her discharge to 40 mg oral furosemide twice a day with 2.5 mg oral metolazone to be given coterminously with the first furosemide oral medication of the day. She handled this well on the penultimate day of her admission stay, and subsequently was discharged on , 04/26/2020, with continued improvement in her serum creatinine and an improvement in her respiratory status secondary to getting fluid off. It's important note that throughout the hospital stay, she continued to respond well to the diuretics, both intravenously and orally, making good amounts of urine daily. Also important to note that all of the discharge instructions regarding medications are disclosed below and outline how she moves forward with her current medication regimen on an outpatient basis to address her cor pulmonale and severe pulmonary hypertension. DISCHARGE MEDICATIONS: Please see below. ALLERGIES: Please see below. PHYSICAL EXAMINATION ON DISCHARGE: VITAL SIGNS: Please see below. GENERAL: Pt was seen in a bedside chair, eating breakfast, in no acute distress. HEENT: NC, AT, EOMI, no scleral icterus, no pharyngeal erythema. NECK: no JVD or lymphadenopathy appreciated. CV: RRR, no murmurs, rubs, or gallops. LUNGS: low tidal volume, CTAB, no rales, rhonchi, or wheezes, no accessory muscle use. ABDOMEN: soft, remarkably obese, nontender, bowel sounds present in all quadrants. EXTREMITIES: no swelling or edema. NEURO: CN III-XII grossly intact, no focal deficits. PSYCH: normal mood and affect. LABORATORY DATA: Please see below. IMAGING: Chest radiograph, 1 view (portable), 04/26/2020 Cardiomegaly, as on 04/16/20, with mild new pulmonary vascular congestion and small new right pleural effusion. 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 -f/u with urology and nephrology as previously arranged. -Should presenting symptoms return and/or acutely worsen, please seek immediate medical care/return to the ED DISCHARGE CONDITION: Stable TIME SPENT ON DISCHARGE: 42 minutes Vital Signs/I&Os Vital Signs Date Time Temp Pulse Resp B/P (MAP) Pulse Ox O2 Delivery O2 Flow Rate FiO2 04/29/20 11:00 2.0 04/29/20 09:26 75 132/49 04/29/20 06:00 97.9 17 100 Nasal Cannula Discharge Medications Scheduled Amlodipine Besylate (Amlodipine Besylate) 5 Mg Tablet, 5 MG PO DAILY, (Reported) Aspirin (Aspir 81) 81 Mg Tablet.dr, 81 MG PO DAILY, (Reported) Atorvastatin Calcium (Atorvastatin Calcium) 40 Mg Tab, 40 MG PO QHS, (Reported) Buspirone HCl (Buspirone HCl) 5 Mg Tablet, 5 MG PO BID, (Reported) Ferrous Sulfate (Iron) 325 Mg Tablet, 325 MG PO QHS, (Reported) Furosemide (Furosemide) 40 Mg Tablet, 40 MG PO BID@0900,1700 -first of two doses of medication each day should be taken at same time as metolazone Insulin Aspart (Novolog Flexpen) 100 Unit/1 Ml Insuln.pen, 1 DOSE SC TID, (Reported) PER SLIDING SCALE Insulin Glargine (Lantus) 1 Units/0.01 Ml Susp, 40 UNITS SC QAM, (Reported) Insulin Glargine (Lantus) 100 Unit/1 Ml Vial, 30 UNITS SC QHS, (Reported) Magnesium Oxide (Magnesium Oxide) 400 Mg Tablet, 400 MG PO BID, (Reported) Melatonin (Melatonin) 10 Mg Capsule, 10 MG PO QHS, (Reported) Metolazone (Metolazone) 2.5 Mg Tablet, 2.5 MG PO DAILY Take at the same time as the first dose of furosemide Pantoprazole Sodium (Protonix) 40 Mg Tablet.dr, 40 MG PO BID, (Reported) Scheduled PRN Acetaminophen (Acetaminophen) 500 Mg Tablet, 500 MG PO for PAIN, (Reported) Fluticasone Propionate (Flonase Allergy Relief) 50 Mcg/Act Spr, 2 SPRAYS NA DAILY PRN for allergies, (Reported) Nystatin (Nystop) 60 Gm Powder, 0 DOSE TOP BIDP PRN for RASH apply to affected areas 2 to 3 times daily until healing is complete Polyethylene Glycol 3350 (Miralax) 119 Gm Powder, 17 GM PO DAILY PRN for CONSTIPATION, (Reported) dilute in 8 ounces of water or juice Allergies Coded Allergies: rosiglitazone (Verified Allergy, Severe, anaphylaxis, 04/14/20) TAPE (Verified Allergy, Intermediate, 04/14/20) use elastic bandage or paper tape ranolazine (Verified Allergy, Intermediate, low BP, swelling, 04/14/20) niacin (Verified Allergy, Mild, itching, 04/14/20) BREONNA Inhibitors (Verified Adverse Reaction, Intermediate, cough, 04/14/20) pioglitazone (Verified Adverse Reaction, Intermediate, heart races, 04/14/20) tramadol (Verified Adverse Reaction, Mild, nausea/vomiting, 04/14/20) GME ATTESTATION GME ATTESTATION My faculty preceptor for this patient encounter was physically present during the encounter and was fully available. All aspects of the patient interview, examination, medical decision making process, and medical care plan development were reviewed and approved by the faculty preceptor. The faculty preceptor is aware and concurs with the plan as stated in the body of this note and will attest to such by his/her cosignature. ATTENDING NOTE Patient was seen and examined by me personally with the residents/ students. I agree with the above assessment and plan ROMARIO LAROSE D.O. May 02, 2020 20:53 GEORGIANA HERRON MD May 18, 2020 12:24
== END 2020-04-29 13:05 | disposition home health service (06) | DRG 315 ==
LOC: EDBD 11:29 → M ED 11:29 → M ED INP 14:49 → ENRESERV 18:52 → M MS5PR 20:15
PROVIDERS: ADMIT Internal Medicine; ATTEND Internal Medicine
DX: I27.20 Pulmonary hypertension, unspecified (principal); I50.32 Chronic diastolic (congestive) heart failure; I13.0 Hypertensive heart and chronic kidney disease with heart failure and stage 1 through stage 4 chronic kidney disease, or unspecified chronic kidney disease; N17.9 Acute kidney failure, unspecified; N18.4 Chronic kidney disease, stage 4 (severe); E11.22 Type 2 diabetes mellitus with diabetic chronic kidney disease; I48.0 Paroxysmal atrial fibrillation; E66.2 Morbid (severe) obesity with alveolar hypoventilation; M10.9 Gout, unspecified; I50.810 Right heart failure, unspecified; F41.9 Anxiety disorder, unspecified; Z95.5 Presence of coronary angioplasty implant and graft; Z90.49 Acquired absence of other specified parts of digestive tract; Z96.0 Presence of urogenital implants; Z68.38 Body mass index [BMI] 38.0-38.9, adult; Z79.82 Long term (current) use of aspirin; Z79.4 Long term (current) use of insulin; Z79.899 Other long term (current) drug therapy; Z88.8 Allergy status to other drugs, medicaments and biological substances; Z91.048 Other nonmedicinal substance allergy status; Z88.5 Allergy status to narcotic agent

== ENCOUNTER → 2020-05-11 | Outpatient (REF) | payer OTHER, MEDICAID ==
[~2020-05-11] MED LIST changes: +LEVO250T12 PO; +METO25TA PO; +NOVOINJ3 SC; +NYST10006 TOP; +TORS20TA2 PO
[2020-05-11 16:43] LABS: CALCIUM LEVEL 9.9 MG/DL (8.8-10.2); CREATININE FOR GFR 2.65 MG/DL (0.55-1.30); GLOMERULAR FILTRATION RATE 19.1 (>45); POTASSIUM SERUM 4.5 MEQ/L (3.5-5.1)
== END ==
LOC: M SFHCCLAY 11:13
PROVIDERS: ATTEND Family Medicine
DX: I50.33 Acute on chronic diastolic (congestive) heart failure (principal)

== ENCOUNTER → 2020-05-27 | Outpatient (REF) | payer OTHER, MEDICAID ==
[2020-05-28 11:50] LABS: HEMATOCRIT 33.8 % (36.0-47.0); MEAN CORPUSCULAR HEMOGLOBIN 27.4 pg (27.0-33.0); MEAN CORPUSCULAR HGB CONC 29.6 g/dl (32.0-36.5); MEAN CORPUSCULAR VOLUME 92.6 fl (80.0-96.0); PLATELET COUNT, AUTOMATED 385 10^3/uL (150-450); RED BLOOD COUNT 3.65 10^6/uL (4.00-5.40); WHITE BLOOD COUNT 11.4 10^3/uL (4.0-10.0)
[2020-05-28 12:04] LABS: HEMOGLOBIN A1c 6.8 %
[2020-05-28 12:20] LABS: CALCIUM LEVEL 9.6 MG/DL (8.8-10.2); CREATININE FOR GFR 2.76 MG/DL (0.55-1.30); GLOMERULAR FILTRATION RATE 18.2 (>45); POTASSIUM SERUM 4.9 MEQ/L (3.5-5.1)
[2020-05-28 12:27] LABS: PTH INTACT 73.1 PG/ML (18.5-88.0)
== END ==
LOC: M SFHCCLAY 14:09
PROVIDERS: ATTEND Family Medicine
DX: K92.2 Gastrointestinal hemorrhage, unspecified (principal); N18.4 Chronic kidney disease, stage 4 (severe); E11.21 Type 2 diabetes mellitus with diabetic nephropathy

== ENCOUNTER → 2020-06-28 | Outpatient (REF) | payer OTHER, MEDICAID ==
[~2020-06-28] MED LIST changes: +COLC0.6T47 PO; -COLC1TAB13 PO
[2020-06-28 13:01] LABS: HEMATOCRIT 33.9 % (36.0-47.0); MEAN CORPUSCULAR HEMOGLOBIN 26.8 pg (27.0-33.0); MEAN CORPUSCULAR HGB CONC 29.5 g/dl (32.0-36.5); MEAN CORPUSCULAR VOLUME 90.9 fl (80.0-96.0); PLATELET COUNT, AUTOMATED 442 10^3/uL (150-450); RED BLOOD COUNT 3.73 10^6/uL (4.00-5.40); WHITE BLOOD COUNT 11.2 10^3/uL (4.0-10.0)
[2020-06-28 13:25] LABS: ALBUMIN 3.9 GM/DL (3.2-5.2); CREATININE FOR GFR 3.39 MG/DL (0.55-1.30); GLOMERULAR FILTRATION RATE 14.3 (>45); POTASSIUM SERUM 4.3 MEQ/L (3.5-5.1)
== END ==
LOC: M SFHCCLAY 09:12
PROVIDERS: ATTEND Family Medicine
DX: N18.4 Chronic kidney disease, stage 4 (severe) (principal); E11.9 Type 2 diabetes mellitus without complications

== ENCOUNTER → 2020-07-12 | Outpatient (CLI) | payer OTHER, MEDICAID ==
--- NOTE | 2020-07-12 09:03 | REP ---
INDICATION: HYDRONEPHROSIS WITH URETERAL STRICTURE NOT ELSEWHERE CLASSIF COMPARISON: 03/12/2019 TECHNIQUE: Axial noncontrast images from the lung bases to the pubic symphysis with coronal and sagittal reformations. This CT examination was performed using the following dose reduction techniques: Automated exposure control, adjustment of mA and/or kv according to the patient's size, and use of iterative reconstruction technique. FINDINGS: The right kidney again demonstrates atrophic changes, renovascular calcifications, significant renal sinus lipomatosis and suspected chronic focally dilated upper pole calyx with a right ureteral stent extending from the level of the proximal right ureter into the bladder. No acute perinephric stranding or hydronephrosis noted. The left kidney demonstrates stable similar findings including atrophic changes, renal vascular calcifications, and significant stable renal sinus lipomatosis without acute perinephric stranding or acute hydroureteronephrosis. Liver, spleen, pancreas, and bilateral adrenal glands are relatively normal/stable for noncontrast evaluation. Evidence for prior cholecystectomy noted and the previously noted percutaneous biliary drain has been removed. Small and large bowel is without obstruction or acute inflammatory process. Colonic diverticulosis noted without acute diverticulitis. Pelvis demonstrates normal stable appearance of the bladder and age-appropriate uterus/adnexa. No significant ascites. No free air. No significant adenopathy. Marked atherosclerotic changes to the aorta and vasculature noted without aortic aneurysm. Musculoskeletal structures demonstrate age-related degenerative changes without acute osseous abnormality. Subcutaneous edema noted. IMPRESSION: 1. Relatively chronic stable appearance to the urinary tract system as described above. 2. Prior cholecystectomy and the previously noted percutaneous biliary drain has been removed. No residual fluid in the gallbladder fossa noted. 3. Chronic nonacute findings as described above. 4. Right basilar atelectasis and small right pleural effusion represent new findings compared to prior examination. <Electronically signed by Cory Bartlett > 07/12/20 [id number]
== END ==
LOC: M RAD 08:25
PROVIDERS: ATTEND Urology
DX: N13.1 Hydronephrosis with ureteral stricture, not elsewhere classified (principal); Z90.49 Acquired absence of other specified parts of digestive tract

== ENCOUNTER → 2020-07-15 | Outpatient (REF) | payer OTHER, MEDICAID ==
[2020-07-15 16:04] LABS: HEMATOCRIT 32.7 % (36.0-47.0); MEAN CORPUSCULAR HGB CONC 30.6 g/dl (32.0-36.5); MEAN CORPUSCULAR VOLUME 88.4 fl (80.0-96.0); PLATELET COUNT, AUTOMATED 520 10^3/uL (150-450); WHITE BLOOD COUNT 10.8 10^3/uL (4.0-10.0)
[2020-07-15 16:40] LABS: CALCIUM LEVEL 10.3 MG/DL (8.8-10.2); CREATININE FOR GFR 3.93 MG/DL (0.55-1.30); GLOMERULAR FILTRATION RATE 12.1 (>45); POTASSIUM SERUM 4.7 MEQ/L (3.5-5.1)
== END ==
LOC: M SFHCCLAY 10:03
PROVIDERS: ATTEND Family Medicine
DX: E11.9 Type 2 diabetes mellitus without complications (principal); D62 Acute posthemorrhagic anemia

== ENCOUNTER → 2020-08-06 | Outpatient (REF) | payer OTHER, MEDICAID ==
[~2020-08-06] MED LIST changes: +ISOS1TAB36; +ISOS1TAB36 PO; -ISOS60TA2; -ISOS60TA2 PO
[2020-08-18 02:07] LABS: ANCA-ATYPICAL <1:20 titer (Neg:<1:20); ANTI DS-DNA AB Negative (Negative); ANTINUCLEAR ANTIBODIES DIRECT Negative (Negative); CYTOPLASMIC NEUTROP AB ANCA-C <1:20 titer (Neg:<1:20); PERINUCLEAR AB ANCA-P <1:20 titer (Neg:<1:20); RNP ANTIBODIES <0.2 AI (0.0-0.9); SJOGREN'S ANTI SS-A <0.2 AI (0.0-0.9); SJOGREN'S ANTI SS-B <0.2 AI (0.0-0.9); SMITH ANTIBODIES <0.2 AI (0.0-0.9)
== END ==
LOC: M LAB REF 17:09
PROVIDERS: ATTEND Internal Medicine Pulmonary Disease
DX: I27.20 Pulmonary hypertension, unspecified (principal)

== ENCOUNTER → 2020-10-04 | Outpatient (CLI) | payer OTHER, MEDICAID ==
--- NOTE | 2020-10-04 16:36 | REP ---
INDICATION: HYDRONEPHROSIS W URETERAL STRICTURE, NEC. COMPARISON: 08/04/2019. TECHNIQUE: Real-time sonographic evaluation of the kidneys is performed. FINDINGS: Renal cortical echogenicity pattern is normal bilaterally and contours are smooth. There appears to be mild hydronephrosis of the left kidney. Cystic structure in the upper pole of the right kidney measures 2.9 x 3.9 x 4.9 cm. This may represent pelvocaliceal dilatation in the upper pole of the right kidney. Once again there is echogenic tissue in the right renal pelvis 7.3 x 6.6 x 8.2 cm, as well as in the left renal pelvis 9.1 x 6.9 x 9.2 cm, consistent with fatty proliferation as seen on prior CT 07/12/2020. The right kidney measures 13.6 x 11.9 x 6.9 cm. Left renal dimensions are 11.6 x 6.8 x 6.1 cm. The urinary bladder is empty. IMPRESSION: Suspect focal pelvocaliceal dilatation upper pole right kidney. Mild hydronephrosis left kidney. <Electronically signed by Tristin De Leon > 10/04/20 [id number]
== END ==
LOC: M RAD 14:37
PROVIDERS: ATTEND Urology
DX: N13.1 Hydronephrosis with ureteral stricture, not elsewhere classified (principal)

== ENCOUNTER → 2020-12-08 | Outpatient (REF) | payer OTHER, MEDICAID | LOC: M LAB REF 17:11 | PROVIDERS: ATTEND Internal Medicine Nephrology | DX: D50.9 Iron deficiency anemia, unspecified (principal) ==

== ENCOUNTER 2021-01-25 19:39 | Inpatient (IN) | payer OTHER ==
[~2021-01-25] VITALS: Ht 160 cm; Wt 84.4 kg
[~2021-01-25 19:39] MED LIST changes: -ASPI-161 PO; -ERGO500029 PO; -FEBU40TA4 PO; -NITR4TASL SL
[2021-01-25] MEDS ORDERED: TORS20TA2 PO ×2 (19:55)
[2021-01-25] MEDS ORDERED: FEBU40TA4 PO ×2 (19:55→22:31)
[2021-01-25] MEDS ORDERED: SPIR50TA4 PO (19:55)
[2021-01-25] MEDS: HumaLOG INSULIN (NovoLOG) PER UNIT SC SCH (21:00)
[2021-01-25] MEDS ORDERED: DEXTROSE 50% 50 ML SYRINGE IV STA (21:31)
[2021-01-25] MEDS ORDERED: HumuLIN R (REGULAR) INSULIN (NovoLIN R) **100U/ML** PER UNIT IV STA (21:31)
[2021-01-25] MEDS ORDERED: PATIROMER SORBITEX CALCIUM 8.4 GM POWDER PACKET (VELTASSA) PO ONE (21:35)
[2021-01-25] MEDS ORDERED: COLC0.6T47 PO (22:31)
[2021-01-25] MEDS ORDERED: ERGO500029 PO (22:31)
[2021-01-25] MEDS ORDERED: NITR4TASL SL (22:31)
[2021-01-25] MEDS ORDERED: ASPI-161 PO (22:31)
[2021-01-25] MEDS ORDERED: NS 1,000 ML IV ONE (23:15)
[2021-01-26] MEDS ORDERED: MAALOX 30 ML SUSP *UDC PO PRN
[2021-01-26] MEDS ORDERED: MOM 30ML SUSPENSION UDC PO PRN
[2021-01-26] MEDS ORDERED: NS 1,000 ML IV SCH (00:15)
[2021-01-26] MEDS ORDERED: NITROGLYCERIN 0.4 MG SUBL TABLET SL PRN (00:20)
[2021-01-26] MEDS ORDERED: FLUTICASONE PROP 0.05% NASAL SPRAY 16 GM (FLONASE) PRN (00:20)
[2021-01-26] MEDS ORDERED: RAMELTEON 8 MG TAB (ROZEREM) PO PRN (00:20)
[2021-01-26] MEDS ORDERED: MIRALAX *UNIT DOSE* 17GM PACKET PO PRN (00:20)
--- NOTE | 2021-01-26 00:30 | HPEPDOC ---
[facility] Medical History & Physical Date of Admission Jan 25, 2021 Date of Service: Jan 25, 2021 Primary Care Physician: Tr Malik MD Attending Physician: TADEO COLLINS MD History and Physical CHIEF COMPLAINT: Acute kidney injury with chronic kidney disease stage IV HISTORY OF PRESENT ILLNESS: Mrs. Interiano is a 70-year-old female who was sent to the ER by Dr. Goncalves for evaluation for possible emergent dialysis. The patient was diagnosed by Dr. Feliciano , with an acute urinary tract infection about 2 weeks ago. She was started on Keflex but did not improve. Antibiotics were changed to Levaquin and she was seen by Dr. Malik today with complaints of continued weakness, decreased urinary output and continued burning with urination. She had labs drawn today and was called by Dr. Goncalves when it was noted that her potassium was 6.4 and her creatinine had worsened to 4.7. GFR was also worse at 9.7. Patient has a history of temporary dialysis 3-4 years ago and has been following with nephrology since. Creatinine has been getting steadily worse, with last creatinine level at 3.93 in June. She also has a history of right ureteral stent placement. She saw Dr. Bledsoe about a week and a half ago. She usually has the stent replaced yearly, but he stated that he wanted to do it sooner than that, given her declining renal function. At the time of my evaluation, the patient was just receiving [place], D50 and 10 units of insulin for treatment of her hyperkalemia. Labs were just being drawn. ER provider. I discussed the case with Dr. Feliciano who recommended that the patient be admitted, started on IV fluids and he would see her in the morning for evaluation for possible dialysis. Patient states she has been weak and continues to experience burning when she does urinate. She denies any fever or chills, she denies any nausea or vomiting. Says she has to take milk of magnesia daily because she is unable to pass hard stool. She has a history of a rectal ulcer, about 1 year ago and feels that this is still playing a role in her difficulty with bowel movements. She also has a history of severe pulmonary hypertension and is maintained on 2 L of oxygen at home. She has a history of obstructive sleep apnea but is noncompliant with CPAP. She has paroxysmal atrial fibrillation but is on no anticoagulation. She has been prescribed aspirin every other day. PAST MEDICAL HISTORY: 1. Chronic kidney disease stage IV. 2. Congestive heart failure, diastolic with preserved ejection fraction. 3. Diabetes type 2 insulin-dependent. 4. Paroxysmal atrial fibrillation on no anticoagulation. 5. Hypertension. 6. Gout. 7. Anxiety. 8. Coronary artery disease. 9. Obstructive sleep apnea, noncompliant with CPAP. 10. Severe pulmonary hypertension. 11. Chronic respiratory failure with hypoxia. 12. Obesity. 13. Prolapsed uterus. 14. Rectal ulcer PAST SURGICAL HISTORY: 1. Heart catheterization with stent placement. 2. Ureteral stent. 3. Tubal ligation. 4. Cholecystectomy SOCIAL HISTORY: Tobacco use: Denies ETOH: Rare Illicit drug use: Denies Patient lives with: Patient lives with her daughter who is also her cath lab manager. FAMILY HISTORY: Family history was thoroughly reviewed and found to be noncontributory. REVIEW OF SYSTEMS: Complete 10 point review systems is negative except as noted above PHYSICAL EXAMINATION: Patient is seen in the ER, sitting up on the bedside commode. RN is at bedside attempting to draw labs and start an IV. Patient is alert and oriented x 3. HEENT is WNL. Neck is supple. Lungs are clear to auscultation. Heart regular rate and rhythm without murmur. Abdomen is obese, soft, non-tender to palpation with bowel sounds positive. Extremities with ROM intact and strength equal bilaterally. No lower extremity edema. Pedal pulses are positive. Skin is warm and dry with multiple areas of ecchymosis on the bilateral forearms. Neuro: grossly intact. Psych: She is pleasant and cooperative ASSESSMENT AND PLAN: 1. Acute kidney injury with chronic kidney disease stage IV. We'll continue the patient on gentle IV fluids and monitor intake and output closely. We'll avoid nephrotoxic medications and will hold torsemide. Nephrology to evaluate in the morning for possible dialysis. We'll recheck renal function in the morning. 2. Hyperkalemia. Monitor patient closely on telemetry. Patient receiving [place], insulin and D50. Recheck labs in the morning. 3. Diabetes type 2, insulin-dependent. Monitor blood glucose before meals and at bedtime and add sliding scale for use as needed. Continue home Lantus. Will check HbA1c in the morning. Consistent carbohydrate diet. 4. Paroxysmal atrial fibrillation. Continue to monitor on telemetry. We will continue low-dose aspirin every other day. 5. Hypertension. Norvasc. Monitor closely with routine vital signs and adjust medications as needed based on trends. 6. Chronic respiratory failure with hypoxia secondary to severe pulmonary hypertension. Continue oxygen and encourage good pulmonary toilet. 8. Congestive heart failure, diastolic with preserved ejection fraction. Monitor closely to avoid fluid volume overload. Plan as outlined above. Holding home torsemide. 9. Gout. Will hold home medications. In the setting of acute kidney injury. 10. Coronary artery disease. Continue aspirin and statin. 11. Hyponatremia. Recheck labs in the morning. 12. Anemia secondary to chronic kidney disease. Continue to monitor hemoglobin and hematocrit daily labs. 13. Her monocytosis. Reactive. Recheck platelets in the morning. 14. DVT prophylaxis. Heparin. CODE STATUS: CODE STATUS was discussed with patient. He desires to be considered full code. She states her daughter would act as her surrogate if she were unable to make her decisions. Patient is at high risk for further deterioration including cardiac arrhythmia, and worsening kidney function with dialysis. She is admitted as inpatient and expected to remain at least 2-3 midnight. Vital Signs Vital Signs Date Time Temp Pulse Resp B/P (MAP) Pulse Ox O2 Delivery O2 Flow Rate FiO2 01/25/21 23:28 01/25/21 19:40 97.7 78 22 97 Nasal Cannula 2.0 Laboratory Data Labs 24H Laboratory Tests 2 01/25/21 23:53: CBC/BMP Home Medications Scheduled Amlodipine Besylate (Amlodipine Besylate) 5 Mg Tablet, 5 MG PO BID Aspirin (Aspirin EC) 81 Mg Tablet.dr, 81 MG PO Q2D Atorvastatin Calcium (Atorvastatin Calcium) 40 Mg Tab, 40 MG PO QHS Buspirone HCl (Buspirone HCl) 5 Mg Tablet, 5 MG PO BID Ergocalciferol (Vitamin D2) (Vitamin D2) 50,000 Units Cap, 50,000 UNITS PO Q2WK EVERY OTHER SUNDAY Febuxostat (Uloric) 40 Mg Tablet, 40 MG PO DAILY Ferrous Sulfate (Iron) 325 Mg Tablet, 325 MG PO Q2D EVERY OTHER NIGHT Insulin Aspart (Novolog Flexpen) 100 Unit/1 Ml Insuln.pen, 1 DOSE SC ACHS PER SLIDING SCALE Insulin Glargine (Lantus) 100 Unit/1 Ml Vial, 30 UNITS SC BID Melatonin (Melatonin) 10 Mg Capsule, 10 MG PO QHS Pantoprazole Sodium (Protonix) 40 Mg Tablet.dr, 40 MG PO BID Torsemide (Torsemide) 20 Mg Tablet, 40 MG PO DAILY Torsemide (Torsemide) 20 Mg Tablet, 20 MG PO QPM Scheduled PRN Colchicine (Colchicine) 0.6 Mg Tablet, 0.6 MG PO DAILY PRN for GOUT FLARE-UP Fluticasone Propionate (Flonase Allergy Relief) 50 Mcg/Act Spr, 2 SPRAYS NA DAILY PRN for NASAL CONGESTION Nitroglycerin (Nitrostat) 0.4 Mg Tab.subl, 0.4 MG SL NITRO PRN for CHEST PAIN Polyethylene Glycol 3350 (Miralax) 119 Gm Powder, 17 GM PO DAILY PRN for CONSTIPATION Allergies Coded Allergies: rosiglitazone (Verified Allergy, Severe, anaphylaxis, 04/14/20) TAPE (Verified Allergy, Intermediate, 04/14/20) use elastic bandage or paper tape ranolazine (Verified Allergy, Intermediate, low BP, swelling, 04/14/20) niacin (Verified Allergy, Mild, itching, 04/14/20) BREONNA Inhibitors (Verified Adverse Reaction, Intermediate, cough, 04/14/20) pioglitazone (Verified Adverse Reaction, Intermediate, heart races, 04/14/20) tramadol (Verified Adverse Reaction, Mild, nausea/vomiting, 04/14/20) A-FIB/CHADSVASC A-FIB History Current/History of A-Fib/PAF?: Yes Current PO Anticoag Therapy: No Age/Risk Factor Scoring CHADSVASC: CHADSVASC Response (Comments) Value Age Risk Factor Age 65-74 years old 1 Gender Risk Factor Female 1 Hx of CHF Yes 1 Hx of HTN Yes 1 Hx of Stroke/TIA/or VTE No 0 Hx of Diabetes Yes 1 Hx of Vascular Disease Yes 1 Total 6 Treatment Treatment ordered: NONE Reason Anticoagulant not given: Other (GI Bleed hx) Other reason anticoagulant not: Gi Bleed hx PATRICIA GODOY Jan 26, 2021 00:29
[2021-01-26 00:44] LABS: CALCIUM LEVEL 8.2 MG/DL (8.8-10.2); CREATININE FOR GFR 5.08 MG/DL (0.55-1.30); MAGNESIUM LEVEL 4.7 MG/DL (1.8-2.4); POTASSIUM SERUM 6.8 MEQ/L (3.5-5.1)
[2021-01-26] MEDS: PANTOPRAZOLE 40MG TAB (PROTONIX) PO SCH ×3 (01:17→21:22)
[2021-01-26] MEDS: FERROUS SULFATE 325MG TAB PO SCH (01:18)
[2021-01-26] MEDS: ATORVASTATIN 20 MG TAB PO SCH ×2 (01:18→21:22)
[2021-01-26] MEDS: busPIRone 5 MG TAB PO SCH ×3 (01:18→21:22)
[2021-01-26] MEDS: amLODIPine 5 MG TAB PO SCH ×3 (01:18→21:22)
[2021-01-26] MEDS: LEVEMIR (INSULIN DETEMIR) 1 UNITS/0.01ML SC SCH ×3 (01:19→21:22)
[2021-01-26 02:04] LABS: RSV AMPLIFICATION NEGATIVE (NEGATIVE)
[2021-01-26] MEDS ORDERED: SOD POLYSTYRENE SULFONATE SUSP 15 GM/60 ML UD PO ONE (03:20)
[2021-01-26 04:33] LABS: VENOUS BASE EXCESS -5.7 (-2.0-2.0); VENOUS HCO3 20.5 MEQ/L (23.0-27.0); VENOUS O2 SATURATION 89.8 % (60.0-80.0); VENOUS PARTIAL PRESSURE O2 65.2 mmHg (30.0-50.0); VENOUS PH 7.297 UNITS (7.330-7.430); VENOUS STANDARD HCO3 19.7 MEQ/L; VENOUS TOTAL CO2 21.9 MEQ/L (24.0-28.0)
[2021-01-26 04:51] LABS: BASO # 0.1 10^3/uL (0.0-0.2); BASO % 0.7 % (0.0-1.0); EOS # 0.3 10^3/uL (0.0-0.5); EOS % 3.3 % (0.0-3.0); HEMATOCRIT 34.6 % (36.0-47.0); HEMOGLOBIN 10.4 g/dl (12.0-15.5); LYMPH # 0.8 10^3/uL (1.5-5.0); LYMPH % 8.1 % (24.0-44.0); MEAN CORPUSCULAR HEMOGLOBIN 27.2 pg (27.0-33.0); MEAN CORPUSCULAR HGB CONC 30.1 g/dl (32.0-36.5); MEAN CORPUSCULAR VOLUME 90.6 fl (80.0-96.0); MONO # 0.9 10^3/uL (0.0-0.8); MONO % 8.9 % (2.0-8.0); NEUTROPHILS % 77.8 % (36.0-66.0); PLATELET COUNT, AUTOMATED 478 10^3/uL (150-450); RED BLOOD COUNT 3.82 10^6/uL (4.00-5.40); WHITE BLOOD COUNT 10.3 10^3/uL (4.0-10.0)
[2021-01-26 05:05] LABS: INR 0.98; PROTHROMBIN TIME 13.2 SECONDS (12.5-14.3)
[2021-01-26 05:06] LABS: PARTIAL THROMBOPLASTIN TIME 32.1 SECONDS (24.2-38.5)
[2021-01-26 05:18] LABS: HEMOGLOBIN A1c 7.1 %
[2021-01-26] MEDS: HEPARIN SOD (PORCINE) 5000UNITS/ML 1ML VIAL/SYRINGE SC SCH ×3 (06:00→21:05)
[2021-01-26 08:30] LABS: BLOOD UREA NITROGEN 89 MG/DL (7-18); CALCIUM LEVEL 8.2 MG/DL (8.8-10.2); CARBON DIOXIDE LEVEL 20 MEQ/L (21-32); CHLORIDE LEVEL 102 MEQ/L (98-107); COMPLEMENT C3 122 MG/DL (90-180); COMPLEMENT C4 36 MG/DL (10-40); CREATININE FOR GFR 5.05 MG/DL (0.55-1.30); FERRITIN 52 NG/ML (8-252); GLOMERULAR FILTRATION RATE 9.1 (>45); GLUCOSE, FASTING 112 MG/DL (70-100); IRON (FE) 89 UG/DL (50-170); MAGNESIUM LEVEL 4.4 MG/DL (1.8-2.4); PERCENT SATURATION 24.9 % (13.2-45.0); PHOSPHORUS LEVEL 9.1 MG/DL (2.5-4.9); SODIUM LEVEL 133 MEQ/L (136-145); TOTAL IRON BINDING CAPACITY 358 UG/DL (250-450); URIC ACID 6.3 MG/DL (2.6-6.0)
[2021-01-26 08:31] LABS: POTASSIUM SERUM 6.9 MEQ/L (3.5-5.1)
[2021-01-26 09:17] LABS: PTH INTACT 147.7 PG/ML (18.5-88.0); TOTAL 25(OH) VITAMIN D 56.2 NG/ML (30.0-100.0)
[2021-01-26 09:18] LABS: VITAMIN B12 LEVEL 372 PG/ML (247-911)
[2021-01-26 09:19] LABS: FOLATE 18.3 NG/ML (>5.4)
[2021-01-26 09:28] LABS: HEPATITIS B SURFACE ANTIGEN NEGATIVE (NEGATIVE)
[2021-01-26 09:55] LABS: HEPATITIS B CORE ANTIBODY IGM NEGATIVE (NEGATIVE)
[2021-01-26 09:58] LABS: HEPATITIS A ANTIBODY IGM NEGATIVE (NEGATIVE)
[2021-01-26 10:56] LABS: CALCIUM LEVEL 7.8 MG/DL (8.8-10.2); CREATININE FOR GFR 5.16 MG/DL (0.55-1.30); GLOMERULAR FILTRATION RATE 8.8 (>45); POTASSIUM SERUM 5.9 MEQ/L (3.5-5.1)
--- NOTE | 2021-01-26 11:37 | IPNPDOC ---
Subjective Date Seen The patient was seen on 01/26/21. Subjective Chief Complaint/HPI Patient was sleeping I woke her up she did not offer any new complaints she states she is feels better now General: Denies: ROS Unobtainable, Chills, Night Sweats, Fatigue, Malaise, Normal Appetite, Other Symptoms Constitutional: Denies: Chills, Fever, Malaise, Night Sweats, Weakness, Fatigue, Weight Loss, Lethargy, Other Skin: Denies: Rash, Lesions, Jaundice, Bruising, Itching, Dry, Breakdown, Nail Changes, Other Pulmonary: Denies: Dyspnea, Cough, Pleuritic Chest Pain, Other Symptoms Cardiovascular: Denies: Chest Pain, Palpitations, Orthopnea, Paroxysmal Noc. Dyspnea, Edema, Lt Headedness, Other Symptoms Gastrointestinal: Denies: Nausea, Vomiting, Abdominal Pain, Diarrhea, Constipation, Melena, Hematochezia, Other Symptoms Genitourinary: Denies: Dysuria, Frequency, Incontinence, Hematuria, Retention, Other Symptoms Musculoskeletal: Denies: Neck Pain, Back Pain, Shoulder Pain, Arm Pain, Hand Pain, Leg Pain, Foot Pain, Joint Pain, Muscle Pain, Spasms, Other Symptoms Objective Physical Examination General Exam: Positive: Alert, Cooperative Eye Exam: Positive: PERRLA, Conjunctiva & lids normal ENT Exam: Positive: Atraumatic Neck Exam: Positive: Supple, JVD Chest Exam: Positive: Other (Bilateral crackles audible on auscultation) Heart Exam: Positive: Rate Normal, Normal S1, Normal S2 Abdomen Exam: Positive: Normal bowel sounds Extremity Exam: Positive: Other Skin Exam: Positive: Nl turgor and temperature Neuro Exam: Positive: Other (No focal motor or sensory deficit) Psych Exam: Positive: Oriented x 3 Assessment /Plan Problems (1) Acute kidney injury Status: Acute (2) Hyperkalemia Status: Acute Plan/VTE VTE Prophylaxis Ordered?: Yes Plan This is 70 years old female who was sent to the ER by Dr. Goncalves for evaluation for possible emergent dialysis. The patient was diagnosed by Dr. Feliciano , with an acute urinary tract infection about 2 weeks ago. She was started on Keflex but did not improve. Antibiotics were changed to Levaquin and she was seen by Dr. Malik today with complaints of continued weakness, decreased urinary output and continued burning with urination. She had labs drawn today and was called by Dr. Goncalves when it was noted that her potassium was 6.4 and her creatinine had worsened to 4.7. GFR was also worse at 9.7. Patient has a history of temporary dialysis 3-4 years ago and has been following with nephrology since. Creatinine has been getting steadily worse, with last creatinine level at 3.93 in June. She also has a history of right ureteral stent placement. She saw Dr. Bledsoe about a week and a half ago. She usually has the stent replaced yearly, but he stated that he wanted to do it sooner than that, given her declining renal function. #1 RICKY on CKD stage IV #2 hyperkalemia #3 diabetes mellitus type 2 #4 paroxysmal atrial fibrillation #5 hypertension Continue gentle IV hydration, intake and output will be monitored Hold torsemide, nephrology consult is pending patient probably will require hemodialysis Patient received [place] insulin and D50 this morning and is currently on telemetry and is asymptomatic further recommendations per nephrology. Fingerstick blood sugar before every meal and at bedtime with coverage. Ventricular rate is under control continue monitoring on color television console monitor patient is currently on a low-dose aspirin every other day Continue Norvasc and adjust dose accordingly. Also continue all other home medications including statins. VS, I&O, 24H, Srirambone Vital Signs/I&O Vital Signs Date Time Temp Pulse Resp B/P (MAP) Pulse Ox O2 Delivery O2 Flow Rate FiO2 01/26/21 06:31 144/76 (98) 01/26/21 06:30 67 18 90 Nasal Cannula 3.0 01/26/21 00:04 96.7 Laboratory Data 24H LABS Laboratory Tests 2 01/25/21 23:53: Anion Gap 9, Glomerular Filtration Rate 9.0L, Calcium Level 8.2L, Magnesium Level 4.7*H, Coronavirus (COVID-19)(PCR) NEGATIVE, Influenza Type A (RT-PCR) NEGATIVE, Influenza Type B (RT-PCR) NEGATIVE, Respiratory Syncytial Virus (PCR) NEGATIVE 01/25/21 23:59: Bedside Glucose (Misc Panel) 157H 01/26/21 04:22: Anion Gap 11, Glomerular Filtration Rate 9.1L, Calcium Level 8.2L, Magnesium Level 4.4H, Prothrombin Time 13.2, Prothromb Time International Ratio 0.98, Act ivated Partial Thromboplast Time 32.1, Uric Acid 6.3H, Phosphorus Level 9.1H, Iron Level 89, Total Iron Binding Capacity 358, Transferrin % Saturation 24.9, Ferritin 52, Total Protein (PEP) 7.0, Vitamin B12 Level 372, 25-Hydroxy Vitamin D Total 56.2, Folate 18.3, Parathyroid Hormone (Intact) 147.7H, Complement C3 122, Complement C4 36, Hepatitis A IgM Antibody NEGATIVE, Hepatitis B Surface Antigen NEGATIVE, Hepatitis B Core IgM Antibody NEGATIVE, Hepatitis C Antibody Index 0.0 01/26/21 04:23: Immature Granulocyte % (Auto) 1.2, Neutrophils (%) (Auto) 77.8H, Lymphocytes (%) (Auto) 8.1L, Monocytes (%) (Auto) 8.9H, Eosinophils (%) (Auto) 3.3H, Basophils (%) (Auto) 0.7, Neutrophils # (Auto) 8.0, Lymphocytes # (Auto) 0.8L, Monocytes # (Auto) 0.9H, Eosinophils # (Auto) 0.3, Basophils # (Auto) 0.1, Nucleated Red Blood Cells % (auto) 0.0, Blood Gas Bicarbonate Standard 19.7, Venous Blood pH 7.297L, Venous Blood Partial Pressure CO2 43.0, Venous Blood Partial Pressure O2 65.2H, Venous Blood Total Carbon Dioxide 21.9L, Venous Blood HCO3 20.5L, Venous Blood Oxygen Saturation 89.8H, Venous Blood Base Excess -5.7L, Estimated Mean Plasma Glucose 157H, Hemoglobin A1c 7.1 01/26/21 10:23: Anion Gap 8, Glomerular Filtration Rate 8.8L, Calcium Level 7.8L CBC/BMP Laboratory Tests 01/25/21 23:53 01/26/21 04:22 01/26/21 04:23 01/26/21 10:23 WILFRIDO BROWN MD Jan 26, 2021 11:37
[2021-01-26] MEDS: HumaLOG INSULIN (NovoLOG) PER UNIT SC SCH ×4 (12:00→21:00)
--- NOTE | 2021-01-26 12:15 | CR.PDOC ---
General Date of Consultation: Jan 26, 2021 Referring Provider: Sridhar Feliciano MD Consultation REASON FOR CONSULTATION/CHIEF COMPLAINT: Permacath placement. HISTORY OF PRESENT ILLNESS: Patient with Acute Renal Failure with ongoing Chronic Kidney Disease ALLERGIES: Please see below. HOME MEDICATIONS: Please see below. PAST MEDICAL HISTORY: 1. CKD 2. A. Fib 3. CAD 4. CHF 5. DM PAST SURGICAL HISTORY: 1. h/o Port placement right chest 2. h/o Permacath placement left chest PHYSICAL EXAMINATION: VITAL SIGNS: Please see below. GENERAL APPEARANCE: NAD HEENT: Supple, No lymphadenopathy RESPIRATORY: CTA B/L CARDIOVASCULAR: S1 & S2, RRR ABDOMEN: Soft, ND, NT EXTREMITIES: FROM NEUROLOGICAL: WNL PSYCHIATRIC: n/a LABORATORY DATA: Please see below. ASSESSMENT/PLAN: 1. 70 y/o female with ARF, needs permacath placement for dialysis. Patient was made aware of procedure, all questions/risks/alternatives were answered and addressed. Consent was signed. Patient last ate small breakfast at 930a. Vital Signs/I&O Vital Signs Date Time Temp Pulse Resp B/P (MAP) Pulse Ox O2 Delivery O2 Flow Rate FiO2 01/26/21 06:31 144/76 (98) 01/26/21 06:30 67 18 90 Nasal Cannula 3.0 01/26/21 00:04 96.7 Laboratory Data Labs 24H Laboratory Tests 2 01/25/21 23:53: Anion Gap 9, Glomerular Filtration Rate 9.0L, Calcium Level 8.2L, Magnesium Level 4.7*H, Coronavirus (COVID-19)(PCR) NEGATIVE, Influenza Type A (RT-PCR) NEGATIVE, Influenza Type B (RT-PCR) NEGATIVE, Respiratory Syncytial Virus (PCR) NEGATIVE 01/25/21 23:59: Bedside Glucose (Misc Panel) 157H 01/26/21 04:22: Anion Gap 11, Glomerular Filtration Rate 9.1L, Calcium Level 8.2L, Magnesium Level 4.4H, Prothrombin Time 13.2, Prothromb Time International Ratio 0.98, Activated Partial Thromboplast Time 32.1, Uric Acid 6.3H, Phosphorus Level 9.1H, Iron Level 89, Total Iron Binding Capacity 358, Transferrin % Saturation 24.9, Ferritin 52, Total Protein (PEP) 7.0, Vitamin B12 Level 372, 25-Hydroxy Vitamin D Total 56.2, Folate 18.3, Parathyroid Hormone (Intact) 147.7H, Complement C3 122, Complement C4 36, Hepatitis A IgM Antibody NEGATIVE, Hepatitis B Surface Antigen NEGATIVE, Hepatitis B Core IgM Antibody NEGATIVE, Hepatitis C Antibody Index 0.0 01/26/21 04:23: Immature Granulocyte % (Auto) 1.2, Neutrophils (%) (Auto) 77.8H, Lymphocytes (%) (Auto) 8.1L, Monocytes (%) (Auto) 8.9H, Eosinophils (%) (Auto) 3.3H, Basophils (%) (Auto) 0.7, Neutrophils # (Auto) 8.0, Lymphocytes # (Auto) 0.8L, Monocytes # (Auto) 0.9H, Eosinophils # (Auto) 0.3, Basophils # (Auto) 0.1, Nucleated Red Blood Cells % (auto) 0.0, Blood Gas Bicarbonate Standard 19.7, Venous Blood pH 7.297L, Venous Blood Partial Pressure CO2 43.0, Venous Blood Partial Pressure O2 65.2H, Venous Blood Total Carbon Dioxide 21.9L, Venous Blood HCO3 20.5L, Venous Blood Oxygen Saturation 89.8H, Venous Blood Base Excess -5.7L, Estimated Mean Plasma Glucose 157H, Hemoglobin A1c 7.1 01/26/21 10:23: Anion Gap 8, Glomerular Filtration Rate 8.8L, Calcium Level 7.8L CBC/BMP Laboratory Tests 01/25/21 23:53 01/26/21 04:22 01/26/21 04:23 01/26/21 10:23 Allergies Coded Allergies: rosiglitazone (Verified Allergy, Severe, anaphylaxis, 04/14/20) TAPE (Verified Allergy, Intermediate, 04/14/20) use elastic bandage or paper tape ranolazine (Verified Allergy, Intermediate, low BP, swelling, 04/14/20) niacin (Verified Allergy, Mild, itching, 04/14/20) BREONNA Inhibitors (Verified Adverse Reaction, Intermediate, cough, 04/14/20) pioglitazone (Verified Adverse Reaction, Intermediate, heart races, 04/14/20) tramadol (Verified Adverse Reaction, Mild, nausea/vomiting, 04/14/20) Home Medications Scheduled Amlodipine Besylate (Amlodipine Besylate) 5 Mg Tablet, 5 MG PO BID, (Reported) Aspirin (Aspirin EC) 81 Mg Tablet.dr, 81 MG PO Q2D, (Reported) Atorvastatin Calcium (Atorvastatin Calcium) 40 Mg Tab, 40 MG PO QHS, (Reported) Buspirone HCl (Buspirone HCl) 5 Mg Tablet, 5 MG PO BID, (Reported) Ergocalciferol (Vitamin D2) (Vitamin D2) 50,000 Units Cap, 50,000 UNITS PO Q2WK, (Reported) EVERY OTHER EDGAR Febuxostat (Uloric) 40 Mg Tablet, 40 MG PO DAILY, (Reported) Ferrous Sulfate (Iron) 325 Mg Tablet, 325 MG PO Q2D, (Reported) EVERY OTHER NIGHT Insulin Aspart (Novolog Flexpen) 100 Unit/1 Ml Insuln.pen, 1 DOSE SC ACHS, (Reported) PER SLIDING SCALE Insulin Glargine (Lantus) 100 Unit/1 Ml Vial, 30 UNITS SC BID, (Reported) Melatonin (Melatonin) 10 Mg Capsule, 10 MG PO QHS, (Reported) Pantoprazole Sodium (Protonix) 40 Mg Tablet.dr, 40 MG PO BID, (Reported) Torsemide (Torsemide) 20 Mg Tablet, 40 MG PO DAILY, (Reported) Torsemide (Torsemide) 20 Mg Tablet, 20 MG PO QPM, (Reported) Scheduled PRN Colchicine (Colchicine) 0.6 Mg Tablet, 0.6 MG PO DAILY PRN for GOUT FLARE-UP, (Reported) Fluticasone Propionate (Flonase Allergy Relief) 50 Mcg/Act Spr, 2 SPRAYS NA DAILY PRN for NASAL CONGESTION, (Reported) Nitroglycerin (Nitrostat) 0.4 Mg Tab.subl, 0.4 MG SL NITRO PRN for CHEST PAIN, (Reported) Polyethylene Glycol 3350 (Miralax) 119 Gm Powder, 17 GM PO DAILY PRN for CONSTIPATION, (Reported) BIRGIT PINK MD Jan 26, 2021 12:09
[2021-01-26] MEDS ORDERED: LIDOCAINE W/EPINEPHRINE 1% 20ML VIAL As Ordered ONE (12:53)
--- NOTE | 2021-01-26 13:04 | REP ---
INDICATION: ARF. COMPARISON: Comparison CT study abdomen pelvis July 12, 2020.. Comparison ultrasound October 04, 2020. TECHNIQUE: Urinary tract sonography. FINDINGS: Scanning of the level of the urinary bladder to have is unremarkable. The bladder is empty at the time of scanning.. There is advanced hypertrophy of the renal sinus fat bilaterally which distorts and displaces the renal parenchyma. This is best seen on CT but is again noted. Renal cortical echogenicity pattern is felt to be increased somewhat bilaterally.. There is mild dilation of the upper pole calyx on the right again noted unchanged from the prior sonography. There is a 1.1 cm cyst in the upper pole of the left kidney. No renal mass lesion is observed.. The right kidney measures 15.2 x 4.9 x 6.3 cm. Left renal dimensions are 13.3 x 5.6 x 5.5 cm. IMPRESSION: The kidneys are displaced in distorted by advanced renal sinus lipomatosis which is seen to best advantage on CT and is bilateral. There is some dilation of the upper pole calyx of the right kidney again noted unchanged from the prior sonogram. There is a small cyst in the upper pole on the left. Otherwise negative.. <Electronically signed by Konstantin Ennis > 01/26/21 1300
[2021-01-26] MEDS ORDERED: fentaNYL 100 MCG/2 ML INJECTION (J3010) As Ordered ONE (13:17)
[2021-01-26] MEDS ORDERED: MIDAZOLAM INJ 2MG/2ML VIAL (J2250 PER 1MG) As Ordered ONE (13:17)
--- NOTE | 2021-01-26 13:21 | CR ---
CONSULTATION DATE: 01/26/2021 REFERRING PHYSICIAN: Beny Albright MD REASON FOR CONSULTATION: Acute renal injury and hyperkalemia. HISTORY OF PRESENT ILLNESS: Mrs. Interiano is a 70-year-old female with known history of stage 4 of chronic kidney disease, congestive heart failure, type 2 diabetes, hypertension and paroxysmal atrial fibrillation. She was recently diagnosed with urinary tract infection when she was seen in the emergency room at [facility]. She was initially treated with Keflex. However, it did not help and then she was given levofloxacin 250 mg every 48 hours and she has used only two doses so far. Her baseline creatinine is about 3.2 mg. However, yesterday when she was seen by her primary physician, her creatinine was about 5. She was also noticed to have hyperkalemia and was advised to come to the emergency room. In the emergency room, her BUN was 99 and creatinine 5.2. Potassium level was 6.8 on a slightly hemolyzed specimen. I was called by the emergency room physician and I advised medical treatment for her hyperkalemia and IV fluids in addition to admission. She was admitted last night and I have seen her this morning in the emergency room. PAST MEDICAL AND SURGICAL HISTORY: 1. Longstanding type 2 diabetes. 2. Hypertension. 3. Diastolic congestive heart failure. 4. Paroxysmal atrial fibrillation. 5. Stage 4 of chronic kidney disease. 6. History of gout. 7. History of anxiety. 8. History of coronary artery disease. 9. History of obstructive sleep apnea. 10. History of severe pulmonary hypertension. 11. History of chronic hypoxemia requiring oxygen. 12. History of central obesity. 13. History of uterus prolapse. PAST SURGICAL HISTORY: 1. Cardiac catheterization with stent placement. 2. Ureteral stent placement. 3. Tubal ligation. 4. Cholecystectomy. PERSONAL AND SOCIAL HISTORY: Patient denies any tobacco or drug use. She occasionally uses alcohol. FAMILY HISTORY: Noncontributory and negative for end-stage renal disease. REVIEW OF SYSTEMS: Patient denies any fever and chills. She has been treated for urinary tract infection recently. Ears, nose and throat are unremarkable. Cardiovascular system: Significant for chronic diastolic congestive heart failure and hypoxemia. She is on home oxygen. Respiratory system is significant for obstructive sleep apnea, chronic hypoxemia and history of pulmonary hypertension. GI system is negative for nausea or vomiting. She did have some loose stools but she received Kayexalate. system is significant for recent urinary tract infection. She has history of hydronephrosis and ureteral stent. Musculoskeletal system is significant for lower extremity edema, chronic obesity and back pain. Endocrine system is significant for type 2 diabetes and secondary hyperparathyroidism. Rheumatological system is significant for chronic anemia. She is not on any anticoagulation at present due to history of rectal bleeding. HOME MEDICATIONS: 1. Amlodipine 5 mg b.i.d. 2. Aspirin 81 mg every two days. 3. Atorvastatin 40 mg daily. 4. Buspirone 5 mg b.i.d. 5. Vitamin D 50,000 units every two weeks. 6. Febuxostat 40 mg daily. 7. Ferrous sulfate 325 mg every two days. 8. Lantus insulin 30 units daily. 9. NovoLog insulin per sliding scale. 10. Melatonin 10 mg at bedtime. 11. Pantoprazole 40 mg b.i.d. 12. Torsemide 40 mg in a.m. and 20 mg at p.m. 13. Nitroglycerin 0.4 mg p.r.n. for chest pain. 14. Miralax 17 gm for constipation as needed. ALLERGIES: HE HAS MULTIPLIE ALLERGIES INCLUDING NIACIN, BREONNA INHIBITOR, PIOGLITAZONE AND RANOLAZINE. PHYSICAL EXAMINATION: The patient is awake and alert at the time of my visit in the emergency room. She is eating breakfast. Temperature is 98 degrees Fahrenheit, heart is 67 per minute and respiratory rate 18 per minute. Blood pressure 144/76 mmHg and oxygen saturation 90% on three liters of oxygen. Head is atraumatic. Currently she is not using oxygen at the time of my visit. Neck: Supple and JVD not visible sitting upright. Lungs have diminished breath sounds at bases and a few basal rales. Heart sounds: Irregular rate and rhythm. Abdomen is markedly obese and nontender. Bowel sounds are present. Extremities without any cyanosis or clubbing. She has 1+ edema on her lower extremities. Neurologically, she is awake, alert and oriented x3. LABORATORY DATA: Initial labs: Her sodium was 131, a potassium of 6.8 on a hemolyzed specimen. BUN was 99 and creatinine 5.08. A repeat sodium 133 and potassium 6.9, again hemolyzed specimen. BUN 89 and creatinine 5.0. Her magnesium level was 4.7. Hemoglobin 10.4 and hematocrit 34.6. A venous blood gas showed a pH of 7.29, pCO2 43, pO2 65 and bicarb 19.7. INR is 0.98. PROBLEMS: 1. Acute kidney injury superimposed on chronic kidney disease. She does have history of hydronephrosis and ureteral stent in the past. She has been treated for a UTI. It is quite possible that obstruction is worse. I will get a renal ultrasound. We also know that she has advanced kidney disease at baseline and may have progressed. We will also go ahead and make arrangements for dialysis with a permacath placement. 2. Hyperkalemia. Related to qvleh-io-jrswmng kidney disease. She has been treated with oral Veltassa, Kayexalate and intravenous insulin and D50. Her potassium now is going to be repeated again. She will be dialyzed as soon as we can get dialysis access. 3. Anemia. She does have history of anemia with prior rectal bleeding. At present, her anemia seems stable and does not need any urgent intervention. 4. Congestive heart failure. Her volume status is still slightly decompensated. She is oxygenating with two liters of oxygen and we will try to remove some fluid with dialysis as tolerated. 5. History of hydronephrosis and UTI. She has been treated recently with Keflex and then small dose of levofloxacin 250 mg x2 doses. We will get a renal ultrasound to assess the hydronephrosis. Depending upon results of her ultrasound, urology consultation could be warranted. Thank you for involving me in the care of Mrs. Interiano. I will follow her along with you. RIOD
[2021-01-26] MEDS ORDERED: LIDOCAINE 1% MDV 20ML VIAL As Ordered ONE ×2 (14:41→14:53)
--- NOTE | 2021-01-26 15:32 | REP ---
INDICATION: PERMACATH INSERTION. COMPARISON: None. TECHNIQUE: Single-view. 0.8 seconds of fluoroscopy time. FINDINGS: A single last image hold fluoroscopically obtained spot radiograph of the right supraclavicular region documents tunnel catheter placement IMPRESSION: . Procedural imaging. <Electronically signed by Konstantin Ennis > 01/26/21 1527
--- NOTE | 2021-01-26 15:58 | ROOPDOC ---
[facility] Report Of Operation Report of Operation DATE OF PROCEDURE: 01/26/21 PREPROCEDURE DIAGNOSES: Acute Renal Failure POSTPROCEDURE DIAGNOSES: Acute Renal Failure PROCEDURE PERFORMED: 1. Permacath Placement 2. Ultrasound guided percutaneous entry SURGEON: Birgit Baez MD ANESTHESIA: Local and sedation ESTIMATED BLOOD LOSS: Approximately 3 mL. COMPLICATIONS: None REMARKS: None FINDINGS: Tip of catheter in good position SPECIMENS REMOVED: N/A DESCRIPTION OF PROCEDURE: Patient was brought to the operating room and placed on the operating table in supine position. After adequate anesthesia was administered, the patient's right neck and chest were prepped and draped in standard surgical fashion. Local anesthetic was administered along the anticipated route of the tunneled catheter. Using ultrasound guidance, percutaneous entry into the right IJ was performed using a micropuncture needle. Over guidewire exchange, a microsheath was placed and a Nitrex wire than passed into the SVC. A separate incision was made on the right anterior chest just below the clavicle and the dialysis catheter was tunneled from the anterior chest incision to the neck puncture site with the Sheldon cuff of the catheter located just below the clavicle. Under fluoroscopic guidance, a tear-away sheath was then placed over the wire and into the SVC. The catheter was then placed through the sheath with the tip located at the cavoatrial junction. The sheath was removed and both ports were tested for flow and then flushed with saline solution. IV Heparin was then instilled into both ports. A 2-0 Prolene suture was used to anchor the catheter to the chest and a 4-0 Monocryl suture to close the neck puncture site. Sterile dressings were then placed. BIRGIT BAEZ MD Jan 26, 2021 15:58
[2021-01-26 18:18] VITALS: BP 118/62
[2021-01-26 19:56] LABS: APPEARANCE, URINE TURBID (CLEAR); BACTERIA, URINE AUTO NEGATIVE (NEGATIVE); BILIRUBIN, URINE AUTO 1+ (NEGATIVE); BLOOD, URINE BLOOD 1+ (NEGATIVE); COLOR, URINE YELLOW (YELLOW); GLUCOSE, URINE (UA) AUTO NEGATIVE (NEGATIVE); KETONE, URINE AUTO NEGATIVE (NEGATIVE); LEUKOCYTE ESTERASE, URINE AUTO 3+ (NEGATIVE); MUCUS, URINE SMALL (NEGATIVE); NITRITE, URINE AUTO NEGATIVE (NEGATIVE); PROTEIN, URINE AUTO 2+ mg/dL (NEGATIVE); RBC, URINE AUTO 35 /HPF (0-3); SPECIFIC GRAVITY URINE AUTO 1.011 (1.002-1.035); SQUAMOUS EPITHELIAL CELL UR AU 1 /HPF (0-6); TRANSITIONAL EPITHELIAL AUTO 2 /HPF; UROBILINOGEN, URINE AUTO 0.2 mg/dL (0.0-2.0); WBC, URINE AUTO TNTC /HPF (0-3)
[2021-01-26 19:57] LABS: CREATININE,RANDOM URINE 60.9 MG/DL; POTASSIUM RANDOM URINE 34.4 MEQ/L; SODIUM,RANDOM URINE 58 MEQ/L; UREA NITROGEN RANDOM URINE 297 MG/DL
--- NOTE | 2021-01-26 20:39 | ECGEPIP ---
[facility] - ED Test Date: 2021-01-25 Pat Name: WALLACE TINEO Department: Room: [place] [address] Gender: Female Network Systems Operator: AVTAR : 1950 Requested By: HIMANSHU Amor Order Number: [id number] Reading MD: Case Mirza Measurements Intervals [place] Rate: 66 P: GA: 304 QRS: -64 QRSD: 122 T: 4 QT: 444 QTc: 465 Interpretive Statements Sinus rhythm with 1st degree AV block Left axis deviation Right bundle branch block LEFT ANTERIOR FASCICULAR BLOCK SIMILAR TO 04/26/20 Electronically Signed on 01-26-2021 20:39:52 EDT by Case Mirza
[2021-01-26 21:21] VITALS: BP 146/56
[2021-01-26] MEDS: ACETAMINOPHEN TAB 650MG DOSE (2X325MG) PO PRN (21:23)
[2021-01-27 01:56] VITALS: BP 139/53
[2021-01-27] MEDS: HEPARIN SOD (PORCINE) 5000UNITS/ML 1ML VIAL/SYRINGE SC SCH ×3 (06:00→21:02)
[2021-01-27] MEDS: busPIRone 5 MG TAB PO SCH ×2 (06:04→21:03)
[2021-01-27] MEDS: PANTOPRAZOLE 40MG TAB (PROTONIX) PO SCH ×2 (06:04→21:03)
[2021-01-27] MEDS: amLODIPine 5 MG TAB PO SCH ×2 (06:05→21:03)
[2021-01-27 06:06] VITALS: BP 139/52
[2021-01-27] MEDS: ASPIRIN 81MG ENTERIC TABLET PO SCH (06:06)
[2021-01-27 06:52] LABS: BASO # 0.1 10^3/uL (0.0-0.2); BASO % 0.8 % (0.0-1.0); EOS # 0.3 10^3/uL (0.0-0.5); EOS % 2.8 % (0.0-3.0); HEMATOCRIT 30.5 % (36.0-47.0); HEMOGLOBIN 9.2 g/dl (12.0-15.5); LYMPH # 0.6 10^3/uL (1.5-5.0); LYMPH % 6.1 % (24.0-44.0); MEAN CORPUSCULAR HEMOGLOBIN 27.3 pg (27.0-33.0); MEAN CORPUSCULAR HGB CONC 30.2 g/dl (32.0-36.5); MEAN CORPUSCULAR VOLUME 90.5 fl (80.0-96.0); MONO # 0.9 10^3/uL (0.0-0.8); MONO % 9.4 % (2.0-8.0); NEUTROPHILS # 7.2 10^3/uL (1.5-8.5); NEUTROPHILS % 80.1 % (36.0-66.0); PLATELET COUNT, AUTOMATED 370 10^3/uL (150-450); RED BLOOD COUNT 3.37 10^6/uL (4.00-5.40)
[2021-01-27 07:10] LABS: ALBUMIN 2.6 GM/DL (3.2-5.2); BILIRUBIN,TOTAL 0.3 MG/DL (0.2-1.0); CALCIUM LEVEL 8.1 MG/DL (8.8-10.2); CREATININE FOR GFR 3.68 MG/DL (0.55-1.30); GLOMERULAR FILTRATION RATE 13.1 (>45); POTASSIUM SERUM 4.6 MEQ/L (3.5-5.1); TOTAL PROTEIN 5.6 GM/DL (6.4-8.2)
[2021-01-27] MEDS: HumaLOG INSULIN (NovoLOG) PER UNIT SC SCH ×4 (07:30→21:00)
[2021-01-27] MEDS: LEVEMIR (INSULIN DETEMIR) 1 UNITS/0.01ML SC SCH ×2 (08:41→21:04)
[2021-01-27] MEDS ORDERED: PREVNAR 13 VACCINE SYRINGE IM ONE (09:00)
--- NOTE | 2021-01-27 10:34 | IPNPDOC ---
Subjective Date Seen The patient was seen on 01/27/21. Subjective Chief Complaint/HPI Patient is comfortable in no distress offers no new complaints felt slightly dizzy but no other complaints no headache no loss of motor or sensory system etc. General: Reports: Other Symptoms (Dizziness) Constitutional: Denies: Chills, Fever, Malaise, Night Sweats, Weakness, Fatigue, Weight Loss, Lethargy, Other Pulmonary: Denies: Dyspnea, Cough, Pleuritic Chest Pain, Other Symptoms Cardiovascular: Denies: Chest Pain, Palpitations, Orthopnea, Paroxysmal Noc. Dyspnea, Edema, Lt Headedness, Other Symptoms Gastrointestinal: Denies: Nausea, Vomiting, Abdominal Pain, Diarrhea, Constipation, Melena, Hematochezia, Other Symptoms Musculoskeletal: Denies: Neck Pain, Back Pain, Shoulder Pain, Arm Pain, Hand Pain, Leg Pain, Foot Pain, Joint Pain, Muscle Pain, Spasms, Other Symptoms Neurological: Denies: Weakness, Numbness, Incoordination, Change in speech, Confusion, Seizures, Other Symptoms Objective Physical Examination General Exam: Positive: Alert Chest Exam: Positive: Other (Bilateral crackles audible on auscultation) Heart Exam: Positive: Rate Normal, Normal S1, Normal S2 Abdomen Exam: Positive: Normal bowel sounds Extremity Exam: Positive: Other Skin Exam: Positive: Nl turgor and temperature Neuro Exam: Positive: Other (No focal motor or sensory deficit) Psych Exam: Positive: Oriented x 3 Assessment /Plan Problems (1) Acute kidney injury Status: Acute (2) Hyperkalemia Status: Acute Plan/VTE VTE Prophylaxis Ordered?: Yes Plan This is 70 years old female who was sent to the ER by Dr. Goncalves for evaluation for possible emergent dialysis. The patient was diagnosed by Dr. Feliciano , with an acute urinary tract infection about 2 weeks ago. She was started on Keflex but did not improve. Antibiotics were changed to Levaquin and she was seen by Dr. Malik today with complaints of continued weakness, decreased urinary output and continued burning with urination. She had labs drawn today and was called by Dr. Goncalves when it was noted that her potassium was 6.4 and her creatinine had worsened to 4.7. GFR was also worse at 9.7. Patient has a history of temporary dialysis 3-4 years ago and has been following with nephrology since. Creatinine has been getting steadily worse, with last creatinine level at 3.93 in June. She also has a history of right ureteral stent placement. She saw Dr. Bledsoe about a week and a half ago. She usually has the stent replaced yearly, but he stated that he wanted to do it sooner than that, given her declining renal function. #1 RICKY on CKD stage IV #2 hyperkalemia #3 diabetes mellitus type 2 #4 paroxysmal atrial fibrillation #5 hypertension S/p HD yesterday and is scheduled for hemodialysis again today Further recommendation and medications as per nephrology Patient's potassium level is essentially within normal limit now. Fingerstick blood sugar before every meal and at bedtime with coverage. Ventricular rate is under control continue monitoring on organic section technical lead patient is currently on a low-dose aspirin every other day Continue Norvasc and adjust dose accordingly. Also continue all other home medications including statins. VS, I&O, 24H, Fishbone Vital Signs/I&O Vital Signs Date Time Temp Pulse Resp B/P (MAP) Pulse Ox O2 Delivery O2 Flow Rate FiO2 01/27/21 06:06 97.7 74 20 139/52 (81) 90 Nasal Cannula 2.0 I&O- Last 24 Hours up to 6 AM 01/27/21 05:59 Intake Total 1470 ml Output Total 925 ml Balance 545 ml Laboratory Data 24H LABS Laboratory Tests 2 01/26/21 18:59: Bedside Glucose (Misc Panel) 67L 01/26/21 19:15: Urine Color YELLOW, Urine Appearance TURBIDH, Urine pH 5.0, Urine Specific [place] 1.011, Urine Protein 2+H, Urine Glucose (Auto)(UA) NEGATIVE, Urine Ketones (Auto) NEGATIVE, Urine Blood 1+H, Urine Nitrite NEGATIVE, Urine Bilirubin 1+H, Urine Urobilinogen 0.2, Urine Leukocyte Esterase (Auto) 3+H, Urine WBC (Auto) TNTCH, Urine RBC (Auto) 35H, Urine Hyaline Casts (Auto) 0, Urine Bacteria (Auto) NEGATIVE, Urine Squamous Epithelial Cells 1, Urine Transitional Epithelial Cells 2, Urine Mucus (Auto) SMALL, Urine Sperm (Auto) , Urine Random Creatinine 60.9, Urine Random Sodium 58, Urine Random Potassium 34.4, Urine Random Urea Nitrogen 297 01/26/21 21:02: Bedside Glucose (Misc Panel) 160H 01/27/21 06:33: Immature Granulocyte % (Auto) 0.8, Neutrophils (%) (Auto) 80.1H, Lymphocytes (%) (Auto) 6.1L, Monocytes (%) (Auto) 9.4H, Eosinophils (%) (Auto) 2.8, Basophils (%) (Auto) 0.8, Neutrophils # (Auto) 7.2, Lymphocytes # (Auto) 0.6L, Monocytes # (Auto) 0.9H, Eosinophils # (Auto) 0.3, Basophils # (Auto) 0.1, Nucleated Red Blood Cells % (auto) 0.0, Anion Gap 10, Glomerular Filtration Rate 13.1L, Calcium Level 8.1L, Total Bilirubin 0.3, Aspartate Amino Transf (AST/SGOT) 8, Alanine Aminotransferase (ALT/SGPT) 18, Alkaline Phosphatase 112, Total Protein 5.6L, Albumin 2.6L, Albumin/Globulin Ratio 0.9L 01/27/21 08:07: Bedside Glucose (Misc Panel) 53L 01/27/21 08:21: Bedside Glucose (Misc Panel) 88 CBC/BMP Laboratory Tests 01/27/21 06:33 WILFRIDO BROWN MD Jan 27, 2021 10:33
[2021-01-27] MEDS ORDERED: DARBEPOETIN 100 MCG/0.5 ML *DIALYSIS* SYRINGE (J0882) IV SCH (12:25)
--- NOTE | 2021-01-27 12:51 | IPN ---
PROGRESS NOTE DATE: 01/27/2021 SUBJECTIVE: Mrs. Interiano is seen this morning on her bedside. She is being dialyzed again today. She was dialyzed yesterday due to acute renal failure and hyperkalemia. She tolerated her first dialysis well. She denies any nausea or vomiting. She has chronic dyspnea and remains on oxygen. OBJECTIVE: VITAL SIGNS: Temperature is 97.7 degrees Fahrenheit, heart rate is 74 per minute and respiratory rate is 20 per minute. Blood pressure 140/52 mmHg and oxygen saturation 90% on 2 liters of oxygen. HEENT: Head is atraumatic. NECK: Supple. JVD is still moderately elevated. She has a new dialysis catheter in the right internal jugular vein. HEART: Heart sounds are regular. LUNGS: Slightly diminished breath sounds at bases. ABDOMEN: Obese and with large pannus. Bowel sounds are present. EXTREMITIES: Without any cyanosis or clubbing. Multiple ecchymotic areas on her arms are noted. She has 1+ bilateral lower extremity edema. NEUROLOGIC: She is awake, alert and at her baseline mentation. LABORATORY DATA: Today's labs showed a WBC count of 9.0, hemoglobin is 9.2, hematocrit is 30.5, platelets are 370,000. Sodium is 138, potassium 4.6, CO2 23, BUN 46 and creatinine 3.68. Glucose was 49 this morning, however most recent fingerstick blood sugar is 88. PROBLEMS: 1. Acute kidney injury superimposed on chronic kidney disease. The patient has a known history of advanced chronic kidney disease at baseline. She is now considered endstage renal disease and has already started dialysis. She will continue outpatient dialysis after discharge. At present, she has a Perm-A-Cath in place and will try to get an AV fistula as soon as possible. 2. Hyperkalemia, her potassium level has corrected with dialysis. No other intervention is needed at this point. 3. Hypoglycemia. She does have hypoglycemia this morning and probably needs adjustment in her insulin. 4. Anemia, she will continue with iron supplement and we will start with Aranesp with her next dialysis treatment. 5. Congestive heart failure, she does have slight decompensation of congestive heart failure and still has some peripheral edema. We are trying to remove one liter of fluid today. This is her second dialysis so I do not want to be too aggressive and we will continue with fluid removal with dialysis. Her diuretics have been stopped. 6. UTI. She does have chronic pyuria and also has a ureteral stent. She has been treated recently with antibiotics. She is currently afebrile and we will continue to monitor. She probably needs removal of her ureteral stent if still present.
[2021-01-27 13:35] VITALS: BP 149/59
[2021-01-27 21:03] VITALS: BP 149/58
[2021-01-27] MEDS: ACETAMINOPHEN TAB 650MG DOSE (2X325MG) PO PRN (21:03)
[2021-01-27] MEDS: FERROUS SULFATE 325MG TAB PO SCH (21:03)
[2021-01-27] MEDS: ATORVASTATIN 20 MG TAB PO SCH (21:04)
[2021-01-28 01:56] VITALS: BP 144/64
[2021-01-28 06:00] VITALS: BP 147/59
[2021-01-28] MEDS: HEPARIN SOD (PORCINE) 5000UNITS/ML 1ML VIAL/SYRINGE SC SCH ×3 (06:00→21:40)
[2021-01-28] MEDS: HumaLOG INSULIN (NovoLOG) PER UNIT SC SCH ×4 (07:30→21:00)
[2021-01-28] MEDS: LEVEMIR (INSULIN DETEMIR) 1 UNITS/0.01ML SC SCH ×2 (09:00→21:48)
[2021-01-28] MEDS: PANTOPRAZOLE 40MG TAB (PROTONIX) PO SCH ×2 (09:35→21:47)
[2021-01-28] MEDS: busPIRone 5 MG TAB PO SCH ×2 (09:35→21:47)
[2021-01-28] MEDS: amLODIPine 5 MG TAB PO SCH ×2 (09:35→21:48)
--- NOTE | 2021-01-28 10:52 | IPNPDOC ---
Subjective Date Seen The patient was seen on 01/28/21. Subjective Chief Complaint/HPI Patient comfortable sitting in chair offers no new complaints General: Denies: ROS Unobtainable, Chills, Night Sweats, Fatigue, Malaise, Normal Appetite, Other Symptoms Constitutional: Denies: Chills, Fever, Night Sweats Pulmonary: Denies: Dyspnea, Cough, Pleuritic Chest Pain, Other Symptoms Cardiovascular: Denies: Chest Pain, Palpitations, Orthopnea, Paroxysmal Noc. Dyspnea, Edema, Lt Headedness, Other Symptoms Gastrointestinal: Denies: Nausea, Vomiting, Abdominal Pain, Diarrhea, Constipation, Melena, Hematochezia, Other Symptoms Musculoskeletal: Denies: Neck Pain, Back Pain, Shoulder Pain, Arm Pain, Hand Pain, Leg Pain, Foot Pain, Joint Pain, Muscle Pain, Spasms, Other Symptoms Neurological: Denies: Weakness, Numbness, Incoordination, Change in speech, Confusion, Seizures, Other Symptoms Objective Physical Examination General Exam: Positive: Alert, Cooperative Chest Exam: Positive: Clear to auscultation Heart Exam: Positive: Rate Normal, Normal S1, Normal S2 Abdomen Exam: Positive: Normal bowel sounds Extremity Exam: Positive: Other Skin Exam: Positive: Nl turgor and temperature Assessment /Plan Problems (1) Acute kidney injury Status: Acute (2) Hyperkalemia Status: Acute Plan/VTE VTE Prophylaxis Ordered?: Yes Plan This is 70 years old female who was sent to the ER by Dr. Goncalves for evaluation for possible emergent dialysis. The patient was diagnosed by Dr. Feliciano , with an acute urinary tract infection about 2 weeks ago. She was started on Keflex but did not improve. Antibiotics were changed to Levaquin and she was seen by Zuleyma Malik today with complaints of continued weakness, decreased urinary output and continued burning with urination. She had labs drawn today and was called by Dr. Goncalves when it was noted that her potassium was 6.4 and her creatinine had worsened to 4.7. GFR was also worse at 9.7. Patient has a history of temporary dialysis 3-4 years ago and has been following with nephrology since. Creatinine has been getting steadily worse, with last creatinine level at 3.93 in June. She also has a history of right ureteral stent placement. She saw Dr. Bledsoe about a week and a half ago. She usually has the stent replaced yearly, but he stated that he wanted to do it sooner than that, given her declining renal function. #1 RICKY on CKD stage IV #2 hyperkalemia #3 diabetes mellitus type 2 #4 paroxysmal atrial fibrillation #5 hypertension Patient received 2 sessions of hemodialysis, patient most likely will require HD as an outpatient. She does have a permacath, will probably require AV fistula as well Hyperkalemia has resolved with dialysis no further intervention Patient's blood sugars under well controlled we will continue current insulin therapy Further recommendations as per Dr. Feliciano Continue all present home medications Out of bed as tolerated VS, I&O, 24H, Fishbone Vital Signs/I&O Vital Signs Date Time Temp Pulse Resp B/P (MAP) Pulse Ox O2 Delivery O2 Flow Rate FiO2 01/28/21 09:35 77 145/59 01/28/21 06:00 98.3 21 92 Nasal Cannula 2.0 I&O- Last 24 Hours up to 6 AM 01/28/21 06:00 Intake Total 560 ml Output Total 1350 ml Balance -790 ml Laboratory Data 24H LABS Laboratory Tests 2 01/27/21 13:38: Bedside Glucose (Misc Panel) 101 01/27/21 16:13: Bedside Glucose (Misc Panel) 156H 01/27/21 19:45: Bedside Glucose (Misc Panel) 186H 01/28/21 06:13: Bedside Glucose (Misc Panel) 82 WILFRIDO BROWN MD Jan 28, 2021 10:52
[2021-01-28 11:47] LABS: ALBUMIN 3.68 GM/DL (3.29-5.55); ALBUMIN % 52.6 % (55.8-66.1); ALPHA-1-GLOBULIN % 7.3 % (2.9-4.9); ALPHA-1-GLOBULINS 0.51 GM/DL (0.17-0.41); ALPHA-2-GLOBULINS 1.23 GM/DL (0.42-0.99); ALPHA-2-GLOBULINS % 17.5 % (7.1-11.8); BETA-1-GLOBULINS 0.39 GM/DL (0.28-0.60); BETA-1-GLOBULINS % 5.5 % (4.7-7.2); BETA-2-GLOBULINS 0.34 GM/DL (0.19-0.55); BETA-2-GLOBULINS % 4.9 % (3.2-6.5); GAMMA GLOBULIN % 12.2 % (11.1-18.8)
[2021-01-28 11:48] LABS: GAMMA GLOBULINS 0.85 GM/DL (0.65-1.58)
--- NOTE | 2021-01-28 12:14 | IPN ---
PROGRESS NOTE DATE: 01/28/2021 SUBJECTIVE: Mrs. Interiano is seen this morning on her bedside. She is sitting in the chair at the time of my visit. She is feeling better and denies any nausea or vomiting. Her chronic dyspnea is unchanged and she remains on 2 liter of oxygen. She was dialyzed yesterday which she tolerated well. OBJECTIVE: VITAL SIGNS: Temperature is 98.3 degrees Fahrenheit, heart rate is 77 per minute and respiratory rate is 20 per minute. Blood pressure is 145/60 mmHg and oxygen saturation is 92% on 2 liters of oxygen. HEENT: Head is atraumatic. NECK: Supple. JVD is difficult to be assessed sitting upright. Hemodialysis catheter is intact in the right internal jugular vein. HEART: Heart sounds are irregular in rhythm. LUNGS: Slightly diminished breath sounds and bibasilar rales. ABDOMEN: Obese and nontender. Bowel sounds are normal. EXTREMITIES: Without any cyanosis or clubbing. She has ecchymosis on her arms and 1+ edema on her legs. She is currently wearing elastic stockings. LABORATORY DATA: The patient did not have any new labs done today. PROBLEMS: 1. Acute renal failure superimposed on chronic kidney disease. Patient has advanced chronic kidney disease at baseline and now she is endstage renal disease for all practical purposes. She has been started on dialysis and would plan to dialyze her again tomorrow. 2. Congestive heart failure, volume status is slightly decompensated. Will try to remove about 2 liters of fluid with next dialysis. Yesterday, we removed 1 liter which she tolerated well. She is off diuretics at present. 3. Anemia, her anemia is chronic and related to endstage renal disease. We started with Aranesp 100 mg daily. Her iron studies were appropriate. 4. Chronic hypoxemia, she has been chronically on home oxygen and this is her baseline. Most likely this is multifactorial. 5. Hyperkalemia, her potassium level has corrected and is improved. Electrolytes will be checked again tomorrow. 6. Disposition: I have requested patient family services for outpatient dialysis arrangements. Once those arrangements are in place, then the patient can be discharged.
[2021-01-28 14:00] VITALS: BP_SYST 159; BP_SYST 172; BP_DIAS 89; BP_DIAS 93
[2021-01-28 18:00] VITALS: BP 164/62
[2021-01-28] MEDS: ACETAMINOPHEN TAB 650MG DOSE (2X325MG) PO PRN (21:48)
[2021-01-28] MEDS: ATORVASTATIN 20 MG TAB PO SCH (21:48)
[2021-01-28 22:00] VITALS: BP 166/73
[2021-01-29 02:00] VITALS: BP 134/63
[2021-01-29] MEDS: HEPARIN SOD (PORCINE) 5000UNITS/ML 1ML VIAL/SYRINGE SC SCH (05:25)
[2021-01-29] MEDS: ASPIRIN 81MG ENTERIC TABLET PO SCH (05:59)
[2021-01-29] MEDS: PANTOPRAZOLE 40MG TAB (PROTONIX) PO SCH ×2 (05:59→20:49)
[2021-01-29] MEDS: busPIRone 5 MG TAB PO SCH ×2 (05:59→20:49)
[2021-01-29] MEDS: amLODIPine 5 MG TAB PO SCH ×2 (05:59→20:48)
[2021-01-29 06:00] VITALS: BP 137/72
[2021-01-29] MEDS: ACETAMINOPHEN TAB 650MG DOSE (2X325MG) PO PRN (06:00)
[2021-01-29 06:10] LABS: HEMATOCRIT 33.4 % (36.0-47.0); MEAN CORPUSCULAR HEMOGLOBIN 27.2 pg (27.0-33.0); MEAN CORPUSCULAR HGB CONC 29.9 g/dl (32.0-36.5); MEAN CORPUSCULAR VOLUME 90.8 fl (80.0-96.0); PLATELET COUNT, AUTOMATED 390 10^3/uL (150-450); RED BLOOD COUNT 3.68 10^6/uL (4.00-5.40); WHITE BLOOD COUNT 10.3 10^3/uL (4.0-10.0)
[2021-01-29 06:29] LABS: ALBUMIN 2.8 GM/DL (3.2-5.2); CALCIUM LEVEL 9.3 MG/DL (8.8-10.2); CREATININE FOR GFR 3.01 MG/DL (0.55-1.30); GLOMERULAR FILTRATION RATE 16.5 (>45); PHOSPHORUS LEVEL 4.7 MG/DL (2.5-4.9); POTASSIUM SERUM 3.7 MEQ/L (3.5-5.1)
[2021-01-29] MEDS: HumaLOG INSULIN (NovoLOG) PER UNIT SC SCH ×4 (07:30→21:00)
[2021-01-29] MEDS: LEVEMIR (INSULIN DETEMIR) 1 UNITS/0.01ML SC SCH ×2 (08:12→21:00)
[2021-01-29] MEDS ORDERED: IRON SUCROSE 100MG 5ML VIAL (J1756 PER 1MG) IV SCH (09:00)
--- NOTE | 2021-01-29 11:16 | IPNPDOC ---
Subjective Date Seen The patient was seen on 01/29/21. Subjective Chief Complaint/HPI Patient is comfortable no distress offers no new complaints at the present time is scheduled for HD again today General: Denies: ROS Unobtainable, Chills, Night Sweats, Fatigue, Malaise, Normal Appetite, Other Symptoms Constitutional: Denies: Chills, Fever, Malaise, Night Sweats, Weakness, Fatigue, Weight Loss, Lethargy, Other Skin: Denies: Rash, Lesions, Jaundice, Bruising, Itching, Dry, Breakdown, Nail Changes, Other Pulmonary: Denies: Dyspnea, Cough, Pleuritic Chest Pain, Other Symptoms Cardiovascular: Denies: Chest Pain, Palpitations, Orthopnea, Paroxysmal Noc. Dyspnea, Edema, Lt Headedness, Other Symptoms Gastrointestinal: Denies: Nausea, Vomiting, Abdominal Pain, Diarrhea, Constipation, Melena, Hematochezia, Other Symptoms Musculoskeletal: Denies: Neck Pain, Back Pain, Shoulder Pain, Arm Pain, Hand Pain, Leg Pain, Foot Pain, Joint Pain, Muscle Pain, Spasms, Other Symptoms Neurological: Denies: Weakness, Numbness, Incoordination, Change in speech, Co nfusion, Seizures, Other Symptoms Objective Physical Examination General Exam: Positive: Alert, Cooperative Chest Exam: Positive: Clear to auscultation Heart Exam: Positive: Rate Normal, Normal S1, Normal S2 Abdomen Exam: Positive: Normal bowel sounds Extremity Exam: Positive: Other Skin Exam: Positive: Nl turgor and temperature Assessment /Plan Problems (1) Acute kidney injury Status: Acute (2) Hyperkalemia Status: Acute Plan/VTE VTE Prophylaxis Ordered?: Yes Plan This is 70 years old female who was sent to the ER by Dr. Goncalves for evaluation for possible emergent dialysis. The patient was diagnosed by Dr. Feliciano , with an acute urinary tract infection about 2 weeks ago. She was started on Keflex but did not improve. Antibiotics were changed to Levaquin and she was seen by Zuleyma Malik today with complaints of continued weakness, decreased urinary output and continued burning with urination. She had labs drawn today and was called by Dr. Goncalves when it was noted that her potassium was 6.4 and her creatinine had worsened to 4.7. GFR was also worse at 9.7. Patient has a history of temporary dialysis 3-4 years ago and has been following with nephrology since. Creatinine has been getting steadily worse, with last creatinine level at 3.93 in June. She also has a history of right ureteral stent placement. She saw Dr. Bledsoe about a week and a half ago. She usually has the stent replaced yearly, but he stated that he wanted to do it sooner than that, given her declining renal function. #1 RICKY on CKD stage IV #2 hyperkalemia #3 diabetes mellitus type 2 #4 paroxysmal atrial fibrillation #5 hypertension Patient received 2 sessions of hemodialysis, third session scheduled today Patient most likely will require HD as an outpatient. She does have a permacath, will probably require AV fistula as well Hyperkalemia has resolved with dialysis no further intervention Patient's blood sugars under well controlled we will continue current insulin therapy Further recommendations as per Dr. Feliciano Continue all present home medications Out of bed as tolerated VS, I&O, 24H, Fishbone Vital Signs/I&O Vital Signs Date Time Temp Pulse Resp B/P (MAP) Pulse Ox O2 Delivery O2 Flow Rate FiO2 01/29/21 06:00 98.1 75 18 137/72 (93) 96 Nasal Cannula 2.0 I&O- Last 24 Hours up to 6 AM 01/29/21 06:00 Intake Total 1290 ml Output Total 475 ml Balance 815 ml Laboratory Data 24H LABS Laboratory Tests 2 01/28/21 11:45: Bedside Glucose (Misc Panel) 132H 01/28/21 16:27: Bedside Glucose (Misc Panel) 273H 01/28/21 19:52: Bedside Glucose (Misc Panel) 183H 01/29/21 05:49: Nucleated Red Blood Cells % (auto) 0.0, Anion Gap 8, Glomerular Filtration Rate 16.5L, Calcium Level 9.3, Phosphorus Level 4.7, Albumin 2.8L CBC/BMP Laboratory Tests 01/29/21 05:49 WILFRIDO BROWN MD Jan 29, 2021 11:16
[2021-01-29 14:00] VITALS: BP 158/61
--- NOTE | 2021-01-29 14:28 | IPN ---
NEPHROLOGY PROGRESS NOTE DATE: 01/29/2021 SUBJECTIVE: Patient was seen and examined at the bedside today morning. She is being dialyzed at the time when I saw her. She denies any active complaints aside from pain in the neck at the catheter site and she is also complaining of bruising on the right breast and the right side of the neck. OBJECTIVE: VITAL SIGNS: Temperature 98.1 degrees Fahrenheit, blood pressure 137/72, pulse 75, respiratory rate 18, saturating 96% on nasal cannula at 2 liters. INTAKE AND OUTPUT: Urine output recorded as 50 mL. Weight in the bed scale was 81.3 kg yesterday.. PHYSICAL EXAMINATION: GENERAL: Patient is awake, alert, oriented times three, obese body habitus, laying in bed. HEAD AND NECK EXAM: Pupils equally round and reactive to light. Mucous membranes are moist. Neck is supple. She has a right internal jugular (IJ) tunneled hemodialysis catheter. Large ecchymosis in the neck and right side of the breast was noted. CARDIOVASCULAR: S1, S2. Regular rate. No edema of the bilateral lower extremities. RESPIRATORY: Chest is clear to auscultation bilaterally. Bilateral equal air entry. No rales or rhonchi. ABDOMEN: Soft. Obese. Positive bowel sounds. Large abdominal panus was noted. MUSCULOSKELETAL: No clubbing or cyanosis. Pulses are 2+. CENTRAL NERVOUS SYSTEM ([employer]): No focal deficit. Power is 5/5 in all extremities. LABORATORY STUDIES: CBC showed WBC 10.3, hemoglobin 10, platelets 390. BMP showed sodium 139, potassium 3.7, chloride 107, bicarbonate 24, BUN 34, creatinine 3, calcium 9.3, phosphorus 4.7. Albumin 2.8. CURRENT INPATIENT MEDICATIONS: Patient's medications were all reviewed by myself. She is getting Venofer with dialysis. She is also on Aranesp with dialysis. I am going to stop her heparin subcutaneous because of ecchymosis. No other significant change in the medications today as compared with yesterday. ASSESSMENT AND PLAN: 1. End-stage renal disease. Patient is being dialyzed today. She is tolerating the hemodialysis procedure well. Next dialysis will be done on Sunday. 2. Decompensated congestive heart failure. Patient is getting fluid removed during dialysis. Volume status is being optimized with dialysis only. 3. Anemia in end-stage renal disease. Patient is iron deficient as well. I have her one dose of intravenous (IV) Venofer. Continue the Aranesp. 4. Ecchymosis at the catheter site. I am going to hold her heparin for now. No heparin will be given subcutaneous or during hemodialysis. 5. Hypertension. Blood pressure is controlled with current dose of amlodipine.
[2021-01-29 18:00] VITALS: BP 128/52
[2021-01-29] MEDS: FERROUS SULFATE 325MG TAB PO SCH (20:48)
[2021-01-29] MEDS: ATORVASTATIN 20 MG TAB PO SCH (20:49)
[2021-01-29 22:00] VITALS: BP 122/55
[2021-01-30] MEDS: ACETAMINOPHEN TAB 650MG DOSE (2X325MG) PO PRN (00:02)
[2021-01-30 02:00] VITALS: BP 151/87
[2021-01-30 06:00] VITALS: BP 134/78
[2021-01-30] MEDS: LEVEMIR (INSULIN DETEMIR) 1 UNITS/0.01ML SC SCH ×2 (08:11→20:54)
[2021-01-30] MEDS: HumaLOG INSULIN (NovoLOG) PER UNIT SC SCH ×4 (08:11→21:00)
[2021-01-30] MEDS: amLODIPine 5 MG TAB PO SCH ×2 (08:13→20:53)
[2021-01-30] MEDS: PANTOPRAZOLE 40MG TAB (PROTONIX) PO SCH ×2 (08:13→20:52)
[2021-01-30] MEDS: NYSTATIN 100,000 UNITS/GM TOPICAL PWD 15 GM TOP SCH ×3 (08:15→20:54)
[2021-01-30] MEDS: busPIRone 5 MG TAB PO SCH ×2 (08:17→20:52)
[2021-01-30 10:00] VITALS: BP 148/64
--- NOTE | 2021-01-30 13:03 | IPNPDOC ---
Text Note Date of Service The patient was seen on 01/30/21. NOTE SUBJECTIVE: Ms. Interiano reports that the pain in her neck is improving however she is till having an urge to urinate without a significant amount of urine produced. She also reports mild pruritic discomfort to her upper and lower extremities. Nursing reports that she is a little unsteady on her feet. PHYSICAL EXAMINATION: VITAL SIGNS: see below GENERAL APPEARANCE: Obese older female, lying on side, large panus appreciated. Ecchymosis to right side of neck near permacath site HEENT: Atraumatic, normocephalic. Eyes are anicteric. Mucous membranes are pink and moist CARDIOVASCULAR: NSR, regular rhythm, no noted murmurs LUNGS: CTAB ABDOMEN: Normoactive sounds, soft, nondistended, obese. No rebound tenderness or guarding. EXTREMITIES: 1+ lower extremity edema to mid conner SKIN: light candidal rash to inguinal folds NEUROLOGICAL: Awake, speech is clear, AOx3 LABORATORY STUDIES: See below RADIOLOGY STUDIES: No recent ASSESSMENT: This is 70 years old female who was sent to the ER by Dr. Goncalves for evaluation for possible emergent dialysis for hyperkalemia and fluid overload. She has improved electrolytes and fluid status. PLAN: # RICKY on CKD: Patient continues to have elevated serum creatinine and minimal to no UOP. Electrolytes are improved since initiating dialysis. Will continue to support pending dialysis chair scheduling. Patient also will need permanent dialysis site identified, however will likely go home with permacath in place. Meds: Aranesp with dialysis Iron supplement for chronic anemia # Electrolyte abnormalities: Hyperkalemia is now resolved as is hyperphosphatemia. Will recheck magnesium levels. Continue to support with remote tele and dialysis. # DM2: Patient is on Levemir 30U BID and ISS. Currently with slightly elevated FSBG above goal, however will continue with ISS. # pAF: on Tele, no events appreciated. Patient is not currently on blood thinners as she has had large bruising around permacath site. SCDs in place. # HTN: Normotensive on Amlodipine 5mg following dialysis # HLD: Continue Atorvastatin # Mood disorder: Continue Buspar # GERD: Continue Protonix and Maalox # Constipation: Will increase Miralax to BID # Chronic deconditioning: Patient is morbidly obese and is chronically deconditioned and has been noted to be unstable with ambulation. Will obtain PT evaluation and recommendations. DISPOSITION: Continue inpatient monitoring pending dialysis bed placement. If this progresses beyond tomorrow, could consider transition to [facility] DIET: Renal, heart healthy DVT PROPHY: Mechanical in setting of ecchymotic area to permacath CONSULTS: Nephro, PT DISCHARGE: d/c to home pending dialysis chair placement VS,Fishbone, I+O VS, Fishbone, I+O Vital Signs Date Time Temp Pulse Resp B/P (MAP) Pulse Ox O2 Delivery O2 Flow Rate FiO2 01/30/21 10:00 97.5 75 18 148/64 (92) 97 Nasal Cannula 2.0 I&O- Last 24 Hours up to 6 AM 01/30/21 06:00 Intake Total 1415 ml Output Total 2450 ml Balance -1035 ml SANTO NELSON MD MPH Jan 30, 2021 13:03
[2021-01-30] MEDS ORDERED: MIRALAX *UNIT DOSE* 17GM PACKET PO SCH (13:05)
[2021-01-30] MEDS ORDERED: FLEET OIL RETENTION ENEMA PR ONE (13:30)
[2021-01-30 14:00] VITALS: BP 150/66
--- NOTE | 2021-01-30 15:25 | IPN ---
NEPHROLOGY PROGRESS NOTE DATE: 01/30/2021 SUBJECTIVE: Patient was seen and examined at the bedside today morning. She was actually sitting up in the sofa. She was dialyzed yesterday. She reports her dialysis was okay; however, she feels dizzy when she walks around. She is also complaining of constipation and wants some medications to help her move her bowels. OBJECTIVE: VITAL SIGNS: Temperature 97.9 degrees Fahrenheit, blood pressure 150/66, pulse 82, respiratory rate 17, saturating 96% on nasal cannula at 2 liters. INTAKE AND OUTPUT: Urine output recorded as 100 mL. Ultrafiltration with hemodialysis was 2 liters. Weight in the bed scale is 84.4. PHYSICAL EXAMINATION: GENERAL: Patient is awake, alert, oriented times three, sitting up in the sofa, no apparent distress. HEAD AND NECK EXAM: Extraocular muscles intact. Pupils equally round and reactive to light. Mucous membranes are moist. Neck is supple. She has a right internal jugular (IJ) tunneled hemodialysis catheter. She has a large ecchymosis on the right anterior chest wall. CARDIOVASCULAR: S1, S2. Regular rate. Trace edema of the bilateral lower extremities. RESPIRATORY: Chest is clear to auscultation bilaterally. Bilateral equal air entry. No rales or rhonchi. ABDOMEN: Soft. Positive bowel sounds. Nontender. No organomegaly MUSCULOSKELETAL: No clubbing or cyanosis. Pulses are 2+. CENTRAL NERVOUS SYSTEM ([employer]IPPER): No focal deficit. Power is 5/5 in all extremities. LABORATORY STUDIES: CBC from yesterday showed WBC 10.3, hemoglobin 10, platelets 390. BMP was from yesterday. There is no current BMP available at this time. CURRENT INPATIENT MEDICATIONS: Patient's medications were all reviewed by myself. She has been started on MiraLax one packet twice a day; however, I have changed it to one packet daily and I have ordered mineral oil enema to be given today. I have stopped her oral iron tablet. ASSESSMENT AND PLAN: 1. Acute renal failure superimposed on chronic kidney disease. Patient is end-stage renal disease now. She is dialysis dependent. She was dialyzed yesterday. Next hemodialysis will be done on Sunday. 2. Decompensated congestive heart failure. Patient got fluid removed yesterday. Volume status is significantly better. 3. Anemia in end-stage renal disease. Continue Aranesp and Venofer with dialysis. Oral iron has been stopped. 4. Constipation. Patient has been started on daily MiraLax and mineral oil enema. 5. Hypertension. Blood pressure is controlled with current dose of amlodipine 5 mg by mouth twice a day.
[2021-01-30 18:00] VITALS: BP 146/68
[2021-01-30] MEDS: ATORVASTATIN 20 MG TAB PO SCH (20:52)
[2021-01-30 22:00] VITALS: BP 160/73
[2021-01-31 02:00] VITALS: BP 146/67
[2021-01-31 06:00] VITALS: BP 165/72
--- NOTE | 2021-01-31 07:58 | IPNPDOC ---
Text Note Date of Service The patient was seen on 01/31/21. NOTE SUBJECTIVE: Ms. Interiano reports no new pain or cramping in hands and while she did have two small to moderate bowel movements yesterday, she continues to fell constipated. She is awaiting dialysis chair as outpatient. PHYSICAL EXAMINATION: VITAL SIGNS: see below GENERAL APPEARANCE: Obese older female, lying on back in bed, large panus appreciated. Ecchymosis to right side of neck near permacath site appears stable from yesterday HEENT: Atraumatic, normocephalic. Eyes are anicteric. Mucous membranes are pink and moist CARDIOVASCULAR: NSR, regular rhythm, no noted murmurs LUNGS: CTAB ABDOMEN: Normoactive sounds, soft, nondistended, obese. No rebound tenderness or guarding. EXTREMITIES: 1+ lower extremity edema to mid conner unchanged from yesterday NEUROLOGICAL: Awake, speech is clear, AOx3 LABORATORY STUDIES: See below RADIOLOGY STUDIES: No recent ASSESSMENT: This is 70 years old female who was sent to the ER by Dr. Goncalves for evaluation for possible emergent dialysis for hyperkalemia and fluid overload. She has improved electrolytes and fluid status. PLAN: # RICKY on CKD: Patient continues to have elevated serum creatinine and minimal to no UOP. Electrolytes are improved since initiating dialysis. Will continue to support pending dialysis chair scheduling. Patient also will need permanent dialysis site identified, however will go home with permacath in place. Meds: Aranesp and Venofer with dialysis # Electrolyte abnormalities: Hyperkalemia is now resolved as is hyperphosphatemia and hypomagnasemia. Continue to support with remote tele and dialysis. # DM2: Patient is on Levemir 30U BID and ISS. # pAF: on Tele, no events appreciated. Patient is not currently on blood thinners as she has had large bruising around permacath site. SCDs in place. # HTN: Normotensive on Amlodipine 5mg following dialysis # HLD: Continue Atorvastatin # Mood disorder: Continue Buspar # GERD: Continue Protonix and Maalox # Constipation: Per Nephrology will return to daily miralax and patient received mineral oil enema with moderate stool return. Will provide with MoM for additional management of constipation. # Chronic deconditioning: Patient is morbidly obese and is chronically deconditioned and has been noted to be unstable with ambulation. Will obtain PT evaluation and recommendations. DISPOSITION: Transition to [facility] c. discharge today pending dialysis bed placement. DIET: Renal, heart healthy DVT PROPHY: Mechanical in setting of ecchymotic area to permacath CONSULTS: Nephro, PT DISCHARGE: d/c to home pending dialysis chair placement VS,Fishbone, I+O VS, Fishbone, I+O Vital Signs Date Time Temp Pulse Resp B/P (MAP) Pulse Ox O2 Delivery O2 Flow Rate FiO2 01/31/21 06:00 97.5 75 20 165/72 (103) 100 Nasal Cannula 2.0 I&O- Last 24 Hours up to 6 AM 01/31/21 06:00 Intake Total 1020 ml Output Total 200 ml Balance 820 ml SANTO NELSON MD MPH Jan 31, 2021 07:58
[2021-01-31] MEDS: LEVEMIR (INSULIN DETEMIR) 1 UNITS/0.01ML SC SCH ×2 (09:00→20:24)
[2021-01-31] MEDS ORDERED: MIRALAX *UNIT DOSE* 17GM PACKET PO SCH (09:00)
[2021-01-31] MEDS ORDERED: LEVEMIR (INSULIN DETEMIR) 1 UNITS/0.01ML SC ONE (09:45)
[2021-01-31] MEDS: PANTOPRAZOLE 40MG TAB (PROTONIX) PO SCH ×2 (09:47→20:23)
[2021-01-31] MEDS: HumaLOG INSULIN (NovoLOG) PER UNIT SC SCH ×4 (09:47→20:25)
[2021-01-31] MEDS: busPIRone 5 MG TAB PO SCH ×2 (09:47→20:27)
[2021-01-31] MEDS: ASPIRIN 81MG ENTERIC TABLET PO SCH (09:47)
[2021-01-31] MEDS ORDERED: MOM 30ML SUSPENSION UDC PO PRN (09:55)
[2021-01-31] MEDS: amLODIPine 5 MG TAB PO SCH ×2 (09:55→20:24)
[2021-01-31] MEDS: NYSTATIN 100,000 UNITS/GM TOPICAL PWD 15 GM TOP SCH ×3 (09:56→20:25)
[2021-01-31 10:00] VITALS: BP 151/64
[2021-01-31] MEDS ORDERED: NYST10006 TOP (10:52)
[2021-01-31] MEDS ORDERED: MOM30SS2 PO (10:52)
[2021-01-31] MEDS ORDERED: IRON SUCROSE 100MG 5ML VIAL (J1756 PER 1MG) IV SCH (10:55)
--- NOTE | 2021-01-31 11:05 | DS.PDOC ---
Discharge Summary General Date of Admission Jan 25, 2021 at 23:58 Date of Discharge 02/01/2021 Attending Physician: SANTO NELSON MD MPH Specialist/Consultants Involve: ALTON PIERSON MD Discharge Summary PROCEDURES PERFORMED DURING STAY: Permacath placement R IJ for ESRD on dialysis ADMITTING DIAGNOSES: Hyperkalemia without EKG changes ESRD Fluid overload Hyperphosphatemia Hypermagnasemia Hypocalcemia DM2 Morbid obesity Chronic anemia DISCHARGE DIAGNOSES: Hyperkalemia without EKG changes (resolved) ESRD now with R IJ permacath placement for initiation of dialysis Fluid overload (resolved) Hyperphosphatemia (resolved) Hypermagnasemia (resolved) Hypocalcemia (resolved) DM2 Morbid obesity Chronic anemia Constipation COMPLICATIONS/CHIEF COMPLAINT: [place],Hyperkalemia. HISTORY OF PRESENT ILLNESS: Mrs. Interiano is a 70-year-old female who was sent to the ER by Dr. Goncalves for evaluation for possible emergent dialysis. The patient was diagnosed by Dr. Feliciano , with an acute urinary tract infection about 2 weeks ago. She was started on Keflex but did not improve. Antibiotics were changed to Levaquin and she was seen by Dr. Malik today with complaints of continued weakness, decreased urinary output and continued burning with urination. She had labs drawn today and was called by Dr. Goncalves when it was noted that her potassium was 6.4 and her creatinine had worsened to 4.7. GFR was also worse at 9.7. Patient has a history of temporary dialysis 3-4 years ago and has been following with nephrology since. Creatinine has been getting steadily worse, with last creatinine level at 3.93 in June. She also has a history of right ureteral stent placement. She saw Dr. Bledsoe about a week and a half ago. She usually has the stent replaced yearly, but he stated that he wanted to do it sooner than that, given her declining renal function. HOSPITAL COURSE: Ms. Interiano was admitted and received dialysis with Nephrology closely following. She had no acute events on telemetry and her electrolyte abnormalities and fluid overload improved following initiation of dialysis. She received a second day of Dialysis and ultimately was discharged to start dialysis as an outpatient on T/R/Sa and followup with Nephrology. On day of discharge she had improved constipation and improved ecchymosis around site of permacath placement. She was given the opportunity to ask questions. Torsemide discontinued as patient will now have volume status adjusted via HD. DISCHARGE MEDICATIONS: Please see below. ALLERGIES: Please see below. PHYSICAL EXAMINATION ON DISCHARGE: VITAL SIGNS: Please see below. GENERAL APPEARANCE: Obese older female, lying on side, large panus appreciated. Ecchymosis to right side of neck near permacath site HEENT: Atraumatic, normocephalic. Eyes are anicteric. Mucous membranes are pink and moist CARDIOVASCULAR: NSR, regular rhythm, no noted murmurs LUNGS: CTAB ABDOMEN: Normoactive sounds, soft, nondistended, obese. No rebound tenderness or guarding. EXTREMITIES: 1+ lower extremity edema to mid conner SKIN: light candidal rash to inguinal folds NEUROLOGICAL: Awake, speech is clear, AOx3 LABORATORY DATA: Please see below. IMAGING: Renal US IMPRESSION: The kidneys are displaced in distorted by advanced renal sinus lipomatosis which is seen to best advantage on CT and is bilateral. There is some dilation of the upper pole calyx of the right kidney again noted unchanged from the prior sonogram. There is a small cyst in the upper pole on the left. Otherwise negative.. PROGNOSIS: Good ACTIVITY: [As tolerated]. DIET: Renal diet DISCHARGE PLAN: Follow up with Nephrology as an outpatient in 7-10 days Attend Dialysis as outpatient Sunday, and Sunday or as otherwise directed by your [facility]. Continue to follow renal healthy diet DISPOSITION: Discharge to home with services DISCHARGE INSTRUCTIONS: Follow up in 7-10 days with Nephrology Follow up with PCM in 5-7 days ITEMS TO FOLLOWUP ON ON OUTPATIENT: Dialysis Permanent dialysis access placement DISCHARGE CONDITION: [Stable]. TIME SPENT ON DISCHARGE: 35 minutes. Vital Signs/I&Os Vital Signs Date Time Temp Pulse Resp B/P (MAP) Pulse Ox O2 Delivery O2 Flow Rate FiO2 01/31/21 10:00 97.0 77 18 151/64 (93) 95 Nasal Cannula 2.0 I&O- Last 24 Hours up to 6 AM 01/31/21 06:00 Intake Total 1020 ml Output Total 200 ml Balance 820 ml Laboratory Data Labs 24H Laboratory Tests 2 01/30/21 11:47: Bedside Glucose (Misc Panel) 222H 01/30/21 16:49: Bedside Glucose (Misc Panel) 129H 01/30/21 19:50: Bedside Glucose (Misc Panel) 233H 01/31/21 07:31: Bedside Glucose (Misc Panel) 105 FSBS Laboratory Tests Test 01/30/21 11:47 01/30/21 16:49 01/30/21 19:50 01/31/21 07:31 Range/Units Bedside Glucose (Misc Panel) 222 129 233 105 80-115 MG/DL Discharge Medications Scheduled Amlodipine Besylate (Amlodipine Besylate) 5 Mg Tablet, 5 MG PO BID, (Reported) Aspirin (Aspirin EC) 81 Mg Tablet.dr, 81 MG PO Q2D, (Reported) Atorvastatin Calcium (Atorvastatin Calcium) 40 Mg Tab, 40 MG PO QHS, (Reported) Buspirone HCl (Buspirone HCl) 5 Mg Tablet, 5 MG PO BID, (Reported) Ergocalciferol (Vitamin D2) (Vitamin D2) 50,000 Units Cap, 50,000 UNITS PO Q2WK, (Reported) EVERY OTHER SUNDAY Febuxostat (Uloric) 40 Mg Tablet, 40 MG PO DAILY, (Reported) Insulin Aspart (Novolog Flexpen) 100 Unit/1 Ml Insuln.pen, 1 DOSE SC ACHS, (Reported) PER SLIDING SCALE Insulin Glargine (Lantus) 100 Unit/1 Ml Vial, 30 UNITS SC BID, (Reported) Melatonin (Melatonin) 10 Mg Capsule, 10 MG PO QHS, (Reported) Nystatin (Nystop) 60 Gm Powder, 0 DOSE TOP TID Pantoprazole Sodium (Protonix) 40 Mg Tablet.dr, 40 MG PO BID, (Reported) Scheduled PRN Colchicine (Colchicine) 0.6 Mg Tablet, 0.6 MG PO DAILY PRN for GOUT FLARE-UP, (Reported) Fluticasone Propionate (Flonase Allergy Relief) 50 Mcg/Act Spr, 2 SPRAYS NA DAILY PRN for NASAL CONGESTION, (Reported) Magnesium Hydroxide (Milk of Magnesia) 400 Mg/5 Ml Oral.susp, 30 ML PO DAILYPRN PRN for CONSTIPATION Nitroglycerin (Nitrostat) 0.4 Mg Tab.subl, 0.4 MG SL NITRO PRN for CHEST PAIN, (Reported) Polyethylene Glycol 3350 (Miralax) 119 Gm Powder, 17 GM PO DAILY PRN for CONSTIPATION, (Reported) Allergies Coded Allergies: rosiglitazone (Verified Allergy, Severe, anaphylaxis, 04/14/20) TAPE (Verified Allergy, Intermediate, 04/14/20) use elastic bandage or paper tape ranolazine (Verified Allergy, Intermediate, low BP, swelling, 04/14/20) niacin (Verified Allergy, Mild, itching, 04/14/20) BREONNA Inhibitors (Verified Adverse Reaction, Intermediate, cough, 04/14/20) pioglitazone (Verified Adverse Reaction, Intermediate, heart races, 0) tramadol (Verified Adverse Reaction, Mild, nausea/vomiting, 04/14/20) SANTO NELSON MD MPH Jan 31, 2021 11:05 MILLIE DORAN MD Feb 01, 2021 19:43
--- NOTE | 2021-01-31 12:21 | IPN ---
PROGRESS NOTE DATE: 01/31/2021 SUBJECTIVE: The patient was seen and examined at the bedside today morning. She is afebrile and hemodynamically stable. She is still reporting constipation. She was started on Miralax and she had some bowel movements but reports Milk of Magnesia works better for her. OBJECTIVE: VITAL SIGNS: Temperature is 97 degrees Fahrenheit, blood pressure is 151/64, pulse is 77, respiratory rate is 18, saturating 95% on nasal cannula at 2 liters. INTAKE AND OUTPUT: Urine output recorded as 200 ml yesterday, weight on the bed scale was 84.4 kg yesterday. GENERAL: Patient is awake, alert and oriented x3. Obese body habitus. Sitting up in the chair. HEAD AND NECK: Extraocular muscles are intact. Pupils equally round and reactive to light. Mucous membranes are moist. NECK: Supple. She has a right IJ hemodialysis catheter. CARDIOVASCULAR: S1 and S2, regular rate. There is trace edema of the bilateral lower extremities. RESPIRATORY: Chest is clear to auscultation bilaterally. Bilateral equal air entry. No rales or rhonchi. ABDOMEN: Soft, obese, positive bowel sounds, nontender. MUSCULOSKELETAL: No clubbing or cyanosis. Pulses are 2+. SKIN: The patient has a large ecchymosis on the right side of the neck and right anterior chest wall. It is getting better. RAG INSPECTOR: No focal deficit. Power is 5/5 in all extremities. LABORATORY DATA: CBC from January 29 and BMP is also from January 29. CURRENT INPATIENT ADMISSIONS: The patient's medications were all reviewed by myself. I have stopped the Miralax and started the patient on daily Milk of Magnesia p.r.n. No other significant change in the medications. ASSESSMENT AND PLAN: 1. Endstage renal disease. Patient is dialysis dependent now. She was dialyzed on Sunday. The next hemodialysis will be done tomorrow morning. 2. Decompensated congestive heart failure. Volume status is significantly better. Further fluid removal will be done with dialysis tomorrow morning. 3. Anemia and endstage renal disease. Continue Venofer and Aranesp with dialysis. 4. Constipation. Miralax has been stopped and the patient has been started on Milk of Magnesia. 5. Hypertension, blood pressure is controlled with amlodipine. 6. Chronic kidney disease, mineral bone disease. Since starting dialysis, the patient's phosphorus level is better. No need of phosphorous binders at this time. PTH level is 147 which is within the acceptable range. No need for Calcitriol at this time.
[2021-01-31] MEDS: ATORVASTATIN 20 MG TAB PO SCH (20:23)
[2021-02-01 05:36] VITALS: BP 144/54
[2021-02-01] MEDS: amLODIPine 5 MG TAB PO SCH (05:36)
[2021-02-01] MEDS: PANTOPRAZOLE 40MG TAB (PROTONIX) PO SCH (05:36)
[2021-02-01] MEDS: busPIRone 5 MG TAB PO SCH (05:36)
[2021-02-01] MEDS: ACETAMINOPHEN TAB 650MG DOSE (2X325MG) PO PRN (05:38)
[2021-02-01 05:48] VITALS: BP 144/54
[2021-02-01] MEDS: HumaLOG INSULIN (NovoLOG) PER UNIT SC SCH ×2 (07:37→12:00)
[2021-02-01] MEDS: NYSTATIN 100,000 UNITS/GM TOPICAL PWD 15 GM TOP SCH (07:38)
[2021-02-01] MEDS: LEVEMIR (INSULIN DETEMIR) 1 UNITS/0.01ML SC SCH (07:38)
[2021-02-01 08:59] LABS: BASO # 0.1 10^3/uL (0.0-0.2); EOS # 0.3 10^3/uL (0.0-0.5); EOS % 3.1 % (0.0-3.0); HEMATOCRIT 33.6 % (36.0-47.0); LYMPH % 10.1 % (24.0-44.0); MEAN CORPUSCULAR HEMOGLOBIN 28.1 pg (27.0-33.0); MEAN CORPUSCULAR HGB CONC 29.8 g/dl (32.0-36.5); MEAN CORPUSCULAR VOLUME 94.4 fl (80.0-96.0); MONO # 0.9 10^3/uL (0.0-0.8); MONO % 9.5 % (2.0-8.0); NEUTROPHILS # 7.4 10^3/uL (1.5-8.5); NEUTROPHILS % 74.9 % (36.0-66.0); PLATELET COUNT, AUTOMATED 415 10^3/uL (150-450); RED BLOOD COUNT 3.56 10^6/uL (4.00-5.40); WHITE BLOOD COUNT 9.9 10^3/uL (4.0-10.0)
--- NOTE | 2021-02-01 09:19 | IPN ---
PROGRESS NOTE DATE: 02/01/2021 SUBJECTIVE: Patient was seen and examined at the bedside today morning during hemodialysis procedure. She reports that she was sitting most of the day yesterday and she has lower extremity edema now. Her constipation is getting better. She was started on Milk of Magnesia yesterday. OBJECTIVE: VITAL SIGNS: Temperature is 97.6 degrees, blood pressure is 144/54, pulse is 70, respiratory rate of 22, saturating is 94% on nasal cannula at 2 liters. INTAKE AND OUTPUT: Urine output is not recorded. She has had three voids since overnight. Weight on the bed scale is not available. GENERAL: Patient is awake, alert and oriented x3, laying in bed, getting hemodialysis done. HEAD AND NECK: Extraocular muscles are intact. Pupils equally round and reactive to light. Mucous membranes are moist. Neck is supple. She has a right IJ tunneled hemodialysis catheter. CARDIOVASCULAR: S1 and S2, regular rate, there is 2+ edema of the bilateral lower extremities. RESPIRATORY: Clear to auscultation bilaterally. Bilateral equal air entry. No rales or rhonchi. ABDOMEN: Soft, obese, positive bowel sounds, nontender. No organomegaly. EXTREMITIES: Edema of the lower extremities as mentioned above, otherwise no clubbing or cyanosis. DELIVERY LEAD: No focal deficit. Power is 5/5 in all extremities. LABORATORY DATA: CBC is pending and BMP from today is also pending. CURRENT INPATIENT MEDICATIONS: Patient's medications were all reviewed by myself. No significant change in the medications today as compared with yesterday. ASSESSMENT AND PLAN: 1. Endstage renal disease. Patient is being dialyzed according to a regular schedule. Ultrafiltration goal would be around 2.5 liters as tolerated by her blood pressure. 2. Hypertension, blood pressure is controlled with current dose of amlodipine. Volume status is optimized with dialysis. 3. Anemia and endstage renal disease, latest hemoglobin from three days ago is 10. Continue current dose of Venofer and Aranesp with dialysis. 4. Constipation. Patient reports that it is getting better, continue Milk of Magnesia p.r.n.
[2021-02-01 09:39] LABS: ALBUMIN 3.2 GM/DL (3.2-5.2); CALCIUM LEVEL 9.2 MG/DL (8.8-10.2); CREATININE FOR GFR 3.1 MG/DL (0.55-1.30); GLOMERULAR FILTRATION RATE 15.9 (>45); PHOSPHORUS LEVEL 4.1 MG/DL (2.5-4.9); POTASSIUM SERUM 4.7 MEQ/L (3.5-5.1)
== END 2021-02-01 15:40 | disposition home health service (06) | DRG 640 ==
LOC: M ED 19:39 → M ED INP 23:58 → ENRESERV 01-26 14:27 → M MSPAV 01-26 18:39
PROVIDERS: ADMIT Internal Medicine; ATTEND Student in an Organized Health Care Education/Training Program
PROC: 02HV33Z Insertion of Infusion Device into Superior Vena Cava, Percutaneous Approach (ICD-10-PCS; 2021-01-26)
PROC: 5A1D70Z Performance of Urinary Filtration, Intermittent, Less than 6 Hours Per Day (ICD-10-PCS; 2021-01-26)
PROC: 0JH63XZ Insertion of Tunneled Vascular Access Device into Chest Subcutaneous Tissue and Fascia, Percutaneous Approach (ICD-10-PCS; principal; 2021-01-26 13:30)
DX: E87.5 Hyperkalemia (principal); N18.6 End stage renal disease; N17.9 Acute kidney failure, unspecified; I50.32 Chronic diastolic (congestive) heart failure; I13.2 Hypertensive heart and chronic kidney disease with heart failure and with stage 5 chronic kidney disease, or end stage renal disease; J96.11 Chronic respiratory failure with hypoxia; N10 Acute pyelonephritis; E87.1 Hypo-osmolality and hyponatremia; Z96.0 Presence of urogenital implants; I27.20 Pulmonary hypertension, unspecified; Z99.81 Dependence on supplemental oxygen; E11.65 Type 2 diabetes mellitus with hyperglycemia; E11.22 Type 2 diabetes mellitus with diabetic chronic kidney disease; M10.9 Gout, unspecified; F41.9 Anxiety disorder, unspecified; I25.10 Atherosclerotic heart disease of native coronary artery without angina pectoris; G47.33 Obstructive sleep apnea (adult) (pediatric); Z91.19 Patient's noncompliance with other medical treatment and regimen; E66.01 Morbid (severe) obesity due to excess calories; I48.0 Paroxysmal atrial fibrillation; D63.1 Anemia in chronic kidney disease; D72.821 Monocytosis (symptomatic); Z79.82 Long term (current) use of aspirin; Z79.4 Long term (current) use of insulin; Z79.899 Other long term (current) drug therapy; Z91.040 Latex allergy status; Z88.6 Allergy status to analgesic agent; Z88.8 Allergy status to other drugs, medicaments and biological substances; Z95.5 Presence of coronary angioplasty implant and graft; E87.70 Fluid overload, unspecified; E83.39 Other disorders of phosphorus metabolism; K21.9 Gastro-esophageal reflux disease without esophagitis; Z72.3 Lack of physical exercise; F39 Unspecified mood [affective] disorder; K59.00 Constipation, unspecified; E83.41 Hypermagnesemia; Z68.33 Body mass index [BMI] 33.0-33.9, adult

== ENCOUNTER → 2021-01-25 | Outpatient (REF) | payer OTHER, MEDICAID ==
[~2021-01-25] MED LIST changes: +ASPI-161 PO; +ERGO500029 PO; +FAMO10TA50 PO; -FAMO1TAB25 PO; +FEBU40TA4 PO; +NITR4TASL SL
[2021-01-25 16:10] LABS: APPEARANCE, URINE CLOUDY (CLEAR); BACTERIA, URINE AUTO NEGATIVE (NEGATIVE); BILIRUBIN, URINE AUTO 1+ (NEGATIVE); BLOOD, URINE BLOOD 2+ (NEGATIVE); COLOR, URINE YELLOW (YELLOW); GLUCOSE, URINE (UA) AUTO NEGATIVE (NEGATIVE); KETONE, URINE AUTO NEGATIVE (NEGATIVE); LEUKOCYTE ESTERASE, URINE AUTO 3+ (NEGATIVE); NITRITE, URINE AUTO NEGATIVE (NEGATIVE); PROTEIN, URINE AUTO 2+ mg/dL (NEGATIVE); RBC, URINE AUTO 32 /HPF (0-3); SPECIFIC GRAVITY URINE AUTO 1.011 (1.002-1.035); SQUAMOUS EPITHELIAL CELL UR AU 1 /HPF (0-6); UROBILINOGEN, URINE AUTO 0.2 mg/dL (0.0-2.0); WBC, URINE AUTO TNTC /HPF (0-3)
[2021-01-25 16:18] LABS: BASO # 0.1 10^3/uL (0.0-0.2); BASO % 0.5 % (0.0-1.0); EOS # 0.2 10^3/uL (0.0-0.5); EOS % 1.7 % (0.0-3.0); HEMOGLOBIN 10.5 g/dl (12.0-15.5); LYMPH # 0.7 10^3/uL (1.5-5.0); LYMPH % 6.5 % (24.0-44.0); MEAN CORPUSCULAR HEMOGLOBIN 27.3 pg (27.0-33.0); MEAN CORPUSCULAR VOLUME 90.9 fl (80.0-96.0); MONO # 0.8 10^3/uL (0.0-0.8); MONO % 6.9 % (2.0-8.0); NEUTROPHILS # 9.1 10^3/uL (1.5-8.5); NEUTROPHILS % 83.2 % (36.0-66.0); PLATELET COUNT, AUTOMATED 486 10^3/uL (150-450); RED BLOOD COUNT 3.85 10^6/uL (4.00-5.40); WHITE BLOOD COUNT 10.9 10^3/uL (4.0-10.0)
[2021-01-25 17:20] LABS: CALCIUM LEVEL 8.7 MG/DL (8.8-10.2); CREATININE FOR GFR 4.77 MG/DL (0.55-1.30); GLOMERULAR FILTRATION RATE 9.7 (>45); POTASSIUM SERUM 6.4 MEQ/L (3.5-5.1)
== END ==
LOC: M SFHCCLAY 12:12
PROVIDERS: ATTEND Family Medicine
DX: N18.4 Chronic kidney disease, stage 4 (severe) (principal); E87.5 Hyperkalemia; N10 Acute pyelonephritis

== ENCOUNTER → 2021-02-07 | Outpatient (CLI) | payer OTHER, MEDICAID ==
[~2021-02-07] MED LIST changes: +ASPI-161 PO; +ERGO500029 PO; +FEBU40TA4 PO; +MOM30SS2 PO; +NITR4TASL SL
--- NOTE | 2021-02-07 14:57 | REP ---
INDICATION: NECK PAIN ON RIGHT SIDE. COMPARISON: None. TECHNIQUE: Nine views of the cervical spine include flexion extension lateral views. FINDINGS: Cervical vertebral body heights are preserved. Alignment is normal. There is discogenic spurring anteriorly at the C4-5 and to a lesser extent C5-6 level. No subluxation or instability is seen on flexion extension lateral views. Swimmer's lateral view shows mild degenerative disc disease in the lower cervical spine segments as well. There is a right-sided tunnel catheter noted in place. Extensive vascular calcification is observed in the small arteries of the face, principally in the submandibular region. Open mouth odontoid view shows diffuse osteopenia and mild osteoarthritis at C1-2. There is osteoarthritic facet hypertrophy in the midcervical spine. Oblique images show no evidence of neural foraminal narrowing. IMPRESSION: Mild degenerative spondylosis changes. Extensive small-vessel arterial vascular calcification in the head and neck soft tissues. No acute bony abnormality. <Electronically signed by Konstantin Ennis > 02/07/21 [id number]
== END ==
LOC: M CLY 13:26
PROVIDERS: ATTEND Family Medicine
DX: M54.2 Cervicalgia (principal); E83.42 Hypomagnesemia

== ENCOUNTER → 2021-02-07 | Outpatient (REF) | payer OTHER | LOC: M LAB REF 18:06 | PROVIDERS: ATTEND Internal Medicine Nephrology | DX: E83.42 Hypomagnesemia (principal) ==

== ENCOUNTER → 2021-02-21 | Outpatient (CLI) | payer OTHER ==
[~2021-02-21] MED LIST changes: +FURO80TA2 PO; +IPRA0.00; +TRAZ-189 PO
== END ==
LOC: M LABSMTC 09:41
PROVIDERS: ATTEND Anesthesiology
DX: Z01.812 Encounter for preprocedural laboratory examination (principal); Z20.822 Contact with and (suspected) exposure to COVID-19

== ENCOUNTER → 2021-02-21 | Outpatient (CLI) | payer OTHER ==
--- NOTE | 2021-02-21 12:40 | REP ---
INDICATION: HYDRONEPHROSIS *LABS, EKG . COMPARISON: 01/26/2021 TECHNIQUE: Transabdominal as on the prior FINDINGS: The kidneys are unchanged in size, shape, and echo pattern. The right kidney measures 14.9 x 11.2 x 10.8 cm and the left measures 13.1 by limb 0.3 by lung 0.5 cm. Once again, there is increased renal sinus echoes consistent with bilateral lipomatosis status quo. No hydronephrosis has developed on either side. The renal cortical echoes are unchanged. Once again, there is mild upper pole caliectasis status quo. IMPRESSION: No significant change from the prior exam. <Electronically signed by Frandy Paulson > 02/21/21 1125
== END ==
LOC: M RAD 10:30
PROVIDERS: ATTEND Nurse Practitioner Women's Health
DX: N13.30 Unspecified hydronephrosis (principal)

== ENCOUNTER → 2021-02-21 | Outpatient (CLI) | payer OTHER, MEDICAID ==
[~2021-02-21] MED LIST changes: +ACET650T61 PO; +HYDR-3363 PO; -IPRA0.00; +IPRA0.00 INH; -KLOR10TA76 PO; -LEVO250T12 PO; +LEVO250T3 PO; -LEVO500T3 PO; +LEVO500T4 PO; -MAGN400T3 PO; +MAGN400T33 PO; +POTA-136 PO; +POTA-149 PO; -POTA10TA16 PO; +SEVE800T3 PO
[2021-02-21 11:28] LABS: HEMOGLOBIN 11.8 g/dl (12.0-15.5); MEAN CORPUSCULAR HEMOGLOBIN 28.2 pg (27.0-33.0); MEAN CORPUSCULAR HGB CONC 29.5 g/dl (32.0-36.5); MEAN CORPUSCULAR VOLUME 95.7 fl (80.0-96.0); PLATELET COUNT, AUTOMATED 413 10^3/uL (150-450); RED BLOOD COUNT 4.18 10^6/uL (4.00-5.40); WHITE BLOOD COUNT 9.9 10^3/uL (4.0-10.0)
[2021-02-21 12:04] LABS: CALCIUM LEVEL 8.8 MG/DL (8.8-10.2); GLOMERULAR FILTRATION RATE 16.5 (>45); POTASSIUM SERUM 3.9 MEQ/L (3.5-5.1)
== END ==
LOC: M LAB 10:34
PROVIDERS: ATTEND Urology
DX: Z01.818 Encounter for other preprocedural examination (principal); N13.30 Unspecified hydronephrosis; I51.7 Cardiomegaly; J90 Pleural effusion, not elsewhere classified; Z95.828 Presence of other vascular implants and grafts; Z20.822 Contact with and (suspected) exposure to COVID-19; Z79.899 Other long term (current) drug therapy
CPT/HCPCS: 36415; 71046; 76775; 80048; 85027; 87086; 93005; U0003

== ENCOUNTER 2021-02-25 06:04 | Day surgery (SDC) | payer OTHER ==
[~2021-02-25] VITALS: Ht 160 cm; Wt 85.2 kg
[~2021-02-25 06:04] MED LIST changes: -ACET650T61 PO; -HYDR-3363 PO; +IPRA0.00; -IPRA0.00 INH; +KLOR10TA76 PO; +LEVO250T12 PO; -LEVO250T3 PO; +LEVO500T3 PO; -LEVO500T4 PO; +LR 1,000 ML IV ONE; +MAGN400T3 PO; -MAGN400T33 PO; -POTA-136 PO; -POTA-149 PO; +POTA10TA16 PO; -SEVE800T3 PO; +ceFAZolin SOD 2 GM in IV 1 EA IV ONE
[2021-02-25] MEDS ORDERED: PHENYLephrine 500MCG 5ML (100MCG/ML) SYRINGE As Ordered ONE (06:49)
[2021-02-25] MEDS ORDERED: ePHEDrine SULFATE 25 MG/5 ML(5MG/ML) SYRINGE As Ordered ONE (06:49)
[2021-02-25] MEDS ORDERED: fentaNYL 100 MCG/2 ML INJECTION (J3010) As Ordered ONE (06:49)
[2021-02-25] MEDS ORDERED: ACETAMINOPHEN 1000MG 100ML IV BTL (OFIRMEV) (J0131 PER 10MG) As Ordered ONE (06:50)
[2021-02-25] MEDS ORDERED: LIDOCAINE 2% 100MG/5ML SDV (FOR ANES.) As Ordered ONE (06:51)
[2021-02-25] MEDS ORDERED: propofoL 200 MG/20 ML VIAL As Ordered ONE (06:51)
[2021-02-25] MEDS ORDERED: MIDAZOLAM INJ 2MG/2ML VIAL (J2250 PER 1MG) As Ordered ONE (06:55)
[2021-02-25] MEDS ORDERED: ONDANSETRON 4MG/2ML VIAL As Ordered ONE (07:07)
[2021-02-25] MEDS ORDERED: BOTOX THERAPEUTIC 100 UNIT VIAL (J0585 PER 1 UNIT) As Ordered ONE (07:07)
[2021-02-25] MEDS ORDERED: dexameTHASONE 4 MG/ML 1ML VIAL (J1100 PER 1MG) As Ordered ONE (07:07)
[2021-02-25] MEDS ORDERED: CONRAY-60 60% 50ML VIAL (Q9961) As Ordered ONE (07:13)
[2021-02-25] MEDS ORDERED: LIDOCAINE 2% 5ML JELLY UROJET As Ordered ONE (07:28)
--- NOTE | 2021-02-25 08:25 | REP ---
INDICATION: RIGHT STENT EXCHANGE. COMPARISON: None. FINDINGS: Double-pigtail stent in satisfactory position on the right side. IMPRESSION: Sensitization of double pigtail stent on the right side. <Electronically signed by Karthik Palencia > 02/25/21 0833
--- NOTE | 2021-02-25 08:46 | ROOPDOC ---
[facility] Report Of Operation Report of Operation DATE OF PROCEDURE: 02/25/21 PREPROCEDURE DIAGNOSIS: Right hydronephrosis. POSTPROCEDURE DIAGNOSIS: Right hydronephrosis. PROCEDURE: Cystoscopy, Right Ureteral Stent Exchange, Right Retrograde Pyelogram with Intraoperative Interpretation of Images. SURGEON: Julianna Jorge MD MURAL PAINTER: None. ANESTHESIA: Monitored anesthesia care (MAC). 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 This is managed with chronic ureteral stenting. She is brought to the operating room today for the above- listed procedure. DESCRIPTION OF PROCEDURE: The patient was brought to the operating room, and monitored anesthesia care (MAC) anesthesia was administered. Prophylactic antibiotics were infused. She was then placed in the dorsal lithotomy position and prepped and draped in the usual sterile fashion. A rigid cystoscope was inserted into the urethral meatus and advanced into the bladder. The previously placed black silicone ureteral stent was seen. At this point, a guidewire was advanced up the right collecting system alongside the stent. The stent was grasped and withdrawn intact. A 5Fr open ended ureteral catheter was then advanced over the wire and into the right collecting system. The wire was then removed and a retrograde pyelogram was performed. It was notable for mild hydronephrosis and no extravasation. The wire was then ad vanced back up the right collecting system and the ureteral catheter was removed. I then utilized the wire to advance a 7-Irish x 26-cm black silicone ureteral stent into the right collecting system. The wire was removed, and there were adequate curls of the stent in the right renal pelvis and in the bladder. The bladder was then emptied of all fluid, and this marked the conclusion of the procedure. The patient was taken out of the dorsal lithotomy position, awakened from anesthesia, and transported to the recovery room in stable condition. ESTIMATED BLOOD LOSS: 5 mL. COMPLICATIONS: None. SPECIMENS: None. PLAN: The patient has started hemodialysis since her last stent exchange. Given this, I will likely recommend keeping the stent in for a few more months. I will then remove it in the office and see how she does without it. JULIANNA JORGE MD Feb 25, 2021 08:45
[2021-02-25 09:26] VITALS: BP 131/70
== END 2021-02-25 09:29 | disposition home or self-care (01) ==
LOC: M SDC 06:04
PROVIDERS: ATTEND Urology
DX: N13.30 Unspecified hydronephrosis (principal); I11.0 Hypertensive heart disease with heart failure; I25.2 Old myocardial infarction; I48.20 Chronic atrial fibrillation, unspecified; I50.30 Unspecified diastolic (congestive) heart failure; I50.20 Unspecified systolic (congestive) heart failure; N18.9 Chronic kidney disease, unspecified; E11.9 Type 2 diabetes mellitus without complications; G47.33 Obstructive sleep apnea (adult) (pediatric); Z79.4 Long term (current) use of insulin; Z79.82 Long term (current) use of aspirin; Z79.899 Other long term (current) drug therapy; Z88.5 Allergy status to narcotic agent; Z88.6 Allergy status to analgesic agent; Z88.8 Allergy status to other drugs, medicaments and biological substances; Z95.5 Presence of coronary angioplasty implant and graft; Z99.81 Dependence on supplemental oxygen
CPT/HCPCS: 36415; 52332; 74420; 84132; C1769; C2617; J0131; J0690; J1100; J2250; J2370; J2405; J3010; Q9961

== ENCOUNTER → 2021-03-30 | Outpatient (CLI) | payer OTHER ==
[~2021-03-30] MED LIST changes: -KLOR10TA76 PO; -LR 1,000 ML IV ONE; +POTA-136 PO; -ceFAZolin SOD 2 GM in IV 1 EA IV ONE
--- NOTE | 2021-03-30 14:16 | REP ---
INDICATION: ESRD COMPARISON: None. TECHNIQUE: Real time compression and duplex Doppler evaluation of the Bilateral upper extremity deep venous system is performed. FINDINGS: The Bilateral subclavian, jugular, axillary, brachial, basilic and cephalic veins are fully compressible where accessible with transducer pressure, and demonstrate no intraluminal thrombus and normal venous waveforms. There is no evidence of deep venous thrombosis. There is nonspecific increased echogenicity in the right biceps muscle which is of uncertain significance. A catheter is seen in the right jugular vein. Right: Basilic vein size (mm)/ Cephalic vein size (mm) Upper humerus: 3/1 Lower humerus:3/1 Upper forearm: 2/2 Lower forearm/wrist: 2/1 Median cubital:3 Right arterial structures: Peak systolic velocity (cm/s)/waveform/size (mm) Axillary: 96.0/biphasic/6 Brachial: 76.8/biphasic/3 Radial: 66.1/biphasic/2 Ulnar:80.2/biphasic/3 Left: Basilic vein size (mm)/ Cephalic vein size (mm) Upper humerus: 3/2 Lower humerus:2/2 Upper forearm: 1/2 Lower forearm/wrist:1/2 Median cubital:2 Left arterial structures: Peak systolic velocity (cm/s)/waveform/size (mm) Axillary: 106/biphasic/5 Brachial: 69.4/biphasic/3 Radial: 77.2/biphasic/2 Ulnar: 92.5/biphasic/2 IMPRESSION: No evidence of deep venous thrombosis of the Bilateral upper extremity deep vein system. Arterial and venous sizes are given above. <Electronically signed by Tristin De Leon > 03/30/21 0012
== END ==
LOC: M RAD 11:03
PROVIDERS: ATTEND Surgery Vascular Surgery
DX: N18.6 End stage renal disease (principal); Z79.51 Long term (current) use of inhaled steroids; Z79.82 Long term (current) use of aspirin; Z79.4 Long term (current) use of insulin; Z79.899 Other long term (current) drug therapy

== ENCOUNTER → 2021-04-12 | Outpatient (REF) | payer OTHER | LOC: M LAB REF 04-11 13:08 | PROVIDERS: ATTEND Internal Medicine Nephrology | DX: N39.0 Urinary tract infection, site not specified (principal) ==

== ENCOUNTER → 2021-04-29 | Outpatient (CLI) | payer OTHER ==
[~2021-04-29] MED LIST changes: +SEVE800T3
== END ==
LOC: M LABSMTC 11:09
PROVIDERS: ATTEND Anesthesiology
DX: Z01.812 Encounter for preprocedural laboratory examination (principal); Z20.822 Contact with and (suspected) exposure to COVID-19

== ENCOUNTER 2021-05-04 09:29 | Day surgery (SDC) | payer OTHER, MEDICAID ==
[~2021-05-04] VITALS: Ht 160 cm; Wt 83.8 kg
[~2021-05-04 09:29] MED LIST changes: +LIDOCAINE 1% MDV 20ML VIAL SQ PRN; +LR 1,000 ML IV ONE; -MAGN400T3 PO; +MAGN400T33 PO
[2021-05-04] MEDS ORDERED: propofoL 200 MG/20 ML VIAL As Ordered ONE ×2 (10:02→13:28)
[2021-05-04] MEDS ORDERED: MIDAZOLAM INJ 2MG/2ML VIAL (J2250 PER 1MG) As Ordered ONE (10:02)
[2021-05-04] MEDS ORDERED: LIDOCAINE 2% 100MG/5ML SDV (FOR ANES.) As Ordered ONE (10:02)
[2021-05-04] MEDS ORDERED: fentaNYL 100 MCG/2 ML INJECTION (J3010) As Ordered ONE (10:02)
[2021-05-04] MEDS ORDERED: THROMBIN SOLN 5,000 UNITS VIAL As Ordered ONE (10:51)
[2021-05-04] MEDS ORDERED: LIDOCAINE 1% MDV 20ML VIAL As Ordered ONE (10:51)
[2021-05-04] MEDS ORDERED: KETAMINE HCL 200 MG/20 ML VIAL As Ordered ONE (12:50)
[2021-05-04] MEDS ORDERED: ONDANSETRON 4MG/2ML VIAL As Ordered ONE (13:11)
[2021-05-04] MEDS ORDERED: HEPARIN SOD (PORCINE) 5000UNITS/ML 1ML VIAL/SYRINGE As Ordered ONE (13:40)
[2021-05-04] MEDS ORDERED: LABETALOL 100MG/20ML VIAL As Ordered ONE (14:41)
[2021-05-04] MEDS ORDERED: fentaNYL 100 MCG/2 ML INJECTION (J3010) IV PRN (15:15)
[2021-05-04] MEDS ORDERED: NS 1,000 ML IV SCH (15:15)
[2021-05-04] MEDS ORDERED: oxyCODONE 5MG TAB PO PRN (15:15)
[2021-05-04] MEDS ORDERED: ONDANSETRON 4MG/2ML VIAL IV PRN (15:15)
[2021-05-04] MEDS ORDERED: LIDOCAINE 5% OINT 30GM TUBE As Ordered ONE (15:25)
[2021-05-04 15:44] VITALS: BP 159/67
--- NOTE | 2021-05-05 12:02 | ROOPDOC ---
[facility] Report Of Operation Report of Operation DATE OF PROCEDURE: 05/04/21 PREPROCEDURE DIAGNOSES: Renal failure POSTPROCEDURE DIAGNOSES: Renal failure PROCEDURE PERFORMED: Left arm Brachio-Cephalic AV fistula creation SURGEON: Birgit Baez MD ANESTHESIA: MAC and local ESTIMATED BLOOD LOSS: Approximately 10 mL. COMPLICATIONS: None REMARKS: Palpable radial pulse and thrill in fistula FINDINGS: Good size cephalic vein and brachial artery SPECIMENS REMOVED: None DESCRIPTION OF PROCEDURE: The patient was brought to the operating room and placed on the operating room table in supine position. After adequate anesthesia was was induced, the patients left arm was then prepped and draped in standard surgical fashion. A linear incision was made with a 15-blade scalpel in between the brachial artery and the cephalic vein; which were identified and marked under ultrasound guidance just proximal to the antecubital fossa. Dissection through subcutaneous tissue was performed using electrocautery. The cephalic vein was identified and dissected free from its surrounding tissues. Several branches were tied with 3-0 silk suture and ligated. A long segment of cephalic vein was freed. Attention was then made towards the brachial artery. The fascia was encountered and incised with Metzenbaum scissors. The neurovascular bundle was encountered and a 3 cm length of the brachial artery was isolated and encircled with silastic vessel loops proximally and distally. Patient was administered a bolus of 3000 units of IV heparin. The length of the cephalic vein was isolated and ligated distally at the level of the antecubital fossa using 2-0 silk suture. An arteriotomy was created with an 11-blade scalpel and extended with Pierce scissors on the brachial artery. The end of the cephalic vein was trimmed for appropriate length and an end-to-side anastomosis was created with two 6-0 Prolene sutures. Local intra-arterial heparinization was administered for this segment of the procedure. Upon release of the silastic loops, prograde flow into the brachial artery was permitted, with good hemostasis. A good palpable thrill was noted along the length of the fistula. There was also a good palpable radial pulse. The wound was irrigated and then closed in layers using 2-0 and 4-0 Vicryl sutures. The skin closed using running 4-0 Monocryl. Dermabond, sterile dressings and an BREONNA wrap were then applied. The patient tolerated the procedure well and was transferred to recovery room in stable condition. BIRGIT BAEZ MD May 04, 2021 15:17
== END 2021-05-04 16:17 | disposition home or self-care (01) ==
LOC: M SDC 09:29
PROVIDERS: ATTEND Surgery Vascular Surgery
DX: N17.9 Acute kidney failure, unspecified (principal); N18.6 End stage renal disease; Z99.2 Dependence on renal dialysis; I13.2 Hypertensive heart and chronic kidney disease with heart failure and with stage 5 chronic kidney disease, or end stage renal disease; E11.22 Type 2 diabetes mellitus with diabetic chronic kidney disease; M1A.30X0 Chronic gout due to renal impairment, unspecified site, without tophus (tophi); K76.9 Liver disease, unspecified; E78.00 Pure hypercholesterolemia, unspecified; F41.9 Anxiety disorder, unspecified; F32.9 Major depressive disorder, single episode, unspecified; I25.10 Atherosclerotic heart disease of native coronary artery without angina pectoris; I48.0 Paroxysmal atrial fibrillation; I25.2 Old myocardial infarction; G47.33 Obstructive sleep apnea (adult) (pediatric); K21.9 Gastro-esophageal reflux disease without esophagitis; I50.33 Acute on chronic diastolic (congestive) heart failure; Z95.5 Presence of coronary angioplasty implant and graft; N13.8 Other obstructive and reflux uropathy; Z96.0 Presence of urogenital implants; Z79.899 Other long term (current) drug therapy; Z79.82 Long term (current) use of aspirin; Z79.4 Long term (current) use of insulin; Z88.8 Allergy status to other drugs, medicaments and biological substances; Z88.5 Allergy status to narcotic agent
CPT/HCPCS: 36415; 36821; 84132; J1644; J2250; J2405; J3010

== ENCOUNTER → 2021-05-27 | Outpatient (CLI) | payer MEDICARE, MEDICAID ==
[~2021-05-27] MED LIST changes: -LIDOCAINE 1% MDV 20ML VIAL SQ PRN; -LR 1,000 ML IV ONE
--- NOTE | 2021-05-27 15:01 | REP ---
INDICATION: HYDRONEPHROSIS W/ URETERAL STRICTURE. COMPARISON: 02/21/2021 TECHNIQUE: Real-time sonographic evaluation of the kidneys with Doppler FINDINGS: The right kidney measures 13.6 x 9.8 x 11.5 cm. Once again, there is renal sinus lipomatosis. There is a specular reflection seen in the right kidney consistent with a stent. There is no evidence of hydronephrosis. The renal cortical echoes are again seen to be diffusely increased. The left kidney measures 14 x 3 x 10.7 x 10.2 cm. Once again, there is renal sinus lipomatosis status quo. There is no hydronephrosis. There is a cyst in the upper pole which measures 1 cm status quo. The renal cortical echoes are again seen to the diffusely increased. IMPRESSION: Bilateral renal sinus lipomatosis. There is a stent in the right kidney. No hydronephrosis is seen on either side. There is a simple left renal cyst. Once again, the renal cortical echoes are diffusely increased bilaterally <Electronically signed by Frandy Paulson > 05/27/21 [id number]
== END ==
LOC: M RAD 13:58
PROVIDERS: ATTEND Urology
DX: Q61.01 Congenital single renal cyst (principal); N13.1 Hydronephrosis with ureteral stricture, not elsewhere classified

== ENCOUNTER → 2021-07-01 | Outpatient (CLI) | payer MEDICAID, MEDICARE ==
[~2021-07-01] MED LIST changes: +ACET650T61 PO; +HYDR-3363 PO; -IPRA0.00; +IPRA0.00 INH; -LEVO250T12 PO; +LEVO250T3 PO; -LEVO500T3 PO; +LEVO500T4 PO; +POTA-149 PO; -POTA10TA16 PO; -SEVE800T3; +SEVE800T3 PO
== END ==
LOC: M RAD 15:16
PROVIDERS: ATTEND Surgery Vascular Surgery
DX: N18.6 End stage renal disease (principal); T82.858A Stenosis of other vascular prosthetic devices, implants and grafts, initial encounter

== ENCOUNTER 2021-09-13 13:13 | Emergency (ER) | payer MEDICAID, OTHER ==
[~2021-09-13] VITALS: Ht 160 cm; Wt 83.0 kg
[2021-09-13] MEDS ORDERED: MORPHINE 4 MG/ML 1ML VIAL/SYRINGE (J2270) IV PRN (13:35)
[2021-09-13 14:14] LABS: BASO # 0.1 10^3/uL (0.0-0.2); BASO % 0.5 % (0.0-1.0); EOS % 0.3 % (0.0-3.0); HEMATOCRIT 39.4 % (36.0-47.0); HEMOGLOBIN 12.4 g/dl (12.0-15.5); LYMPH # 0.5 10^3/uL (1.5-5.0); LYMPH % 3.8 % (24.0-44.0); MEAN CORPUSCULAR HGB CONC 31.5 g/dl (32.0-36.5); MEAN CORPUSCULAR VOLUME 95.4 fl (80.0-96.0); MONO # 0.5 10^3/uL (0.0-0.8); MONO % 3.9 % (2.0-8.0); NEUTROPHILS # 12.6 10^3/uL (1.5-8.5); NEUTROPHILS % 90.3 % (36.0-66.0); PLATELET COUNT, AUTOMATED 417 10^3/uL (150-450); RED BLOOD COUNT 4.13 10^6/uL (4.00-5.40)
[2021-09-13 14:43] LABS: ALBUMIN 3.3 GM/DL (3.2-5.2); BILIRUBIN,DIRECT 0.5 MG/DL (0.0-0.2); BILIRUBIN,TOTAL 0.7 MG/DL (0.2-1.0); CALCIUM LEVEL 9.4 MG/DL (8.8-10.2); CREATININE FOR GFR 3.99 MG/DL (0.55-1.30); FREE T4 1.11 NG/DL (0.76-1.46); GLOMERULAR FILTRATION RATE 11.9 (>45); POTASSIUM SERUM 4.4 MEQ/L (3.5-5.1); THYROID STIMULATING HORMONE 3.18 uIU/ML (0.358-3.740); TOTAL PROTEIN 6.9 GM/DL (6.4-8.2)
[2021-09-13 14:49] LABS: CK-MB VALUE MASS 1.4 NG/ML (<3.6); MB/CK RELATIVE INDEX 5.38 (< OR =4)
[2021-09-13 15:42] LABS: CK-MB VALUE MASS 1.4 NG/ML (<3.6); MB/CK RELATIVE INDEX 5.38 (< OR =4)
[2021-09-13 17:43] LABS: CK-MB VALUE MASS 1.6 NG/ML (<3.6); MB/CK RELATIVE INDEX 5.33 (< OR =4)
[2021-09-13 19:02] LABS: RSV AMPLIFICATION NEGATIVE (NEGATIVE)
[2021-09-13] MEDS ORDERED: HEPARIN DRIP 25,000 UNITS in IV 1 EA IV SCH (19:40)
[2021-09-13] MEDS ORDERED: ISOVUE-370 76% 100ML VIAL As Ordered ONE (20:11)
[2021-09-13] MEDS: HEPARIN SOD (PORCINE) 5000UNITS/ML 1ML VIAL/SYRINGE IV ONE ×2 (20:12→20:42)
[2021-09-13] MEDS ORDERED: GLUCOSE 4GM CHEW TABLET PO PRN (21:00)
[2021-09-13] MEDS ORDERED: ATORVASTATIN 20 MG TAB PO SCH (21:00)
[2021-09-13] MEDS ORDERED: TIZA2TA PO (22:29)
[2021-09-13] MEDS ORDERED: SPIR50TA4 PO ×3 (22:29→23:08)
[2021-09-13] MEDS ORDERED: TORS100T PO ×2 (22:29→23:08)
[2021-09-13] MEDS ORDERED: VELP5CHW (22:29)
[2021-09-13] MEDS ORDERED: LIDO1CRE42 (22:29)
[2021-09-13] MEDS ORDERED: AMLO1TAB24 (22:30)
[2021-09-13] MEDS ORDERED: AMLO1TAB24 PO (22:57)
[2021-09-13] MEDS ORDERED: MILKSUS3 PO (23:08)
[2021-09-13] MEDS ORDERED: NYST1POW9 TOP (23:08)
[2021-09-13] MEDS ORDERED: LIDO1CRE42 TOP (23:08)
[2021-09-13] MEDS ORDERED: SEVE800T3 PO ×2 (23:08)
[2021-09-13] MEDS ORDERED: IPRA0.00 INH (23:08)
[2021-09-13] MEDS ORDERED: VELP5CHW PO (23:08)
[2021-09-13] MEDS ORDERED: HOME MED LIST COMPLETE! XX SCH (23:10)
[2021-09-13 23:11] LABS: INR 0.95; PROTHROMBIN TIME 13.1 SECONDS (12.7-14.5)
[2021-09-13 23:12] LABS: PARTIAL THROMBOPLASTIN TIME 35.9 SECONDS (25.9-37.0)
[2021-09-13] MEDS ORDERED: LABETALOL 100MG/20ML VIAL IV STA (23:41)
[2021-09-13] MEDS ORDERED: ASPIRIN 81 MG CHEW TABLET PO ONE (23:45)
[2021-09-14] MEDS ORDERED: IPRATROPIUM 0.5MG/ALBUTEROL 2.5MG INH SOL UD 3ML (DUONEB) INH PRN (00:15)
[2021-09-14] MEDS ORDERED: (RENVELA) SEVELAMER **CARBONate** 800 MG TAB PO PRN (00:15)
[2021-09-14] MEDS ORDERED: NITROGLYCERIN 0.3 MG SUBL TAB SL PRN (00:20)
[2021-09-14 02:28] LABS: CK-MB VALUE MASS 5.2 NG/ML (<3.6); MB/CK RELATIVE INDEX 11.06 (< OR =4)
[2021-09-14] MEDS ORDERED: GLUCOSE 4GM CHEW TABLET PO PRN (03:00)
[2021-09-14] MEDS ORDERED: GLUCAGON INJ 1MG VIAL SC PRN (03:00)
[2021-09-14] MEDS ORDERED: DEXTROSE 50% 50 ML SYRINGE IV PRN (03:00)
[2021-09-14 05:36] LABS: MB/CK RELATIVE INDEX 10.64 (< OR =4)
[2021-09-14 05:41] LABS: CHOLESTEROL RISK RATIO 2.113 (<5)
[2021-09-14] MEDS ORDERED: HumaLOG INSULIN (NovoLOG) PER UNIT SC SCH (06:00)
[2021-09-14] MEDS ORDERED: TORSEMIDE 100 MG TAB PO SCH ×2 (06:45→09:00)
[2021-09-14] MEDS ORDERED: amLODIPine 5 MG TAB PO SCH ×2 (06:45→09:00)
[2021-09-14 07:48] VITALS: BP 160/60
[2021-09-14] MEDS ORDERED: (RENVELA) SEVELAMER **CARBONate** 800 MG TAB PO SCH (08:00)
[2021-09-14 08:56] LABS: MB/CK RELATIVE INDEX 9.43 (< OR =4)
[2021-09-14] MEDS ORDERED: LEVEMIR (INSULIN DETEMIR) 1 UNITS/0.01ML SC SCH (09:00)
[2021-09-14 10:49] VITALS: BP 160/60
[2021-09-15] MEDS ORDERED: TORSEMIDE 100 MG TAB PO SCH (14:00)
== END 2021-09-14 10:51 | disposition short-term general hospital (02) ==
LOC: EDBD 13:13 → M ED 13:13
DX: I24.9 Acute ischemic heart disease, unspecified (principal); E11.9 Type 2 diabetes mellitus without complications; I11.0 Hypertensive heart disease with heart failure; I50.9 Heart failure, unspecified; J44.9 Chronic obstructive pulmonary disease, unspecified; N18.6 End stage renal disease; K21.9 Gastro-esophageal reflux disease without esophagitis; F41.9 Anxiety disorder, unspecified; I48.91 Unspecified atrial fibrillation; I25.2 Old myocardial infarction; M10.9 Gout, unspecified; E66.9 Obesity, unspecified; Z96.0 Presence of urogenital implants; Z88.5 Allergy status to narcotic agent; Z88.8 Allergy status to other drugs, medicaments and biological substances; Z91.048 Other nonmedicinal substance allergy status; Z79.899 Other long term (current) drug therapy; Z79.82 Long term (current) use of aspirin; Z79.4 Long term (current) use of insulin
CPT/HCPCS: 36415; 71045; 71275; 80048; 80061; 80076; 82550; 82553; 83690; 83880; 84145; 84439; 84443; 84484; 85025; 85610; 85652; 85730; 86140; 87040; 87631; 93005; 93041; 94760; 96374; 96375; 99285; J1644; Q9967

== ENCOUNTER 2021-12-28 15:22 | Observation (INO) | payer MEDICAID, OTHER ==
[~2021-12-28] VITALS: Ht 157.5 cm; Wt 85.8 kg
[~2021-12-28 15:22] MED LIST changes: +AMLO1TAB24; +LIDO1CRE42; +LIDO1CRE42 TOP; +MILKSUS3 PO; +NYST1POW9 TOP; +TIZA2TA PO; +TORS100T PO; +VELP5CHW; +VELP5CHW PO
[2021-12-28] MEDS ORDERED: NS 500 ML IV ONE (15:35)
[2021-12-28 16:04] LABS: BASO # 0.1 10^3/uL (0.0-0.2); BASO % 0.9 % (0.0-1.0); EOS # 0.1 10^3/uL (0.0-0.5); EOS % 1.1 % (0.0-3.0); HEMATOCRIT 29.7 % (36.0-47.0); HEMOGLOBIN 9.1 g/dl (12.0-15.5); LYMPH # 0.8 10^3/uL (1.5-5.0); LYMPH % 8.5 % (24.0-44.0); MEAN CORPUSCULAR HEMOGLOBIN 30.4 pg (27.0-33.0); MEAN CORPUSCULAR HGB CONC 30.6 g/dl (32.0-36.5); MEAN CORPUSCULAR VOLUME 99.3 fl (80.0-96.0); MONO # 0.7 10^3/uL (0.0-0.8); MONO % 7.8 % (2.0-8.0); NEUTROPHILS # 7.1 10^3/uL (1.5-8.5); NEUTROPHILS % 78.1 % (36.0-66.0); PLATELET COUNT, AUTOMATED 252 10^3/uL (150-450); RED BLOOD COUNT 2.99 10^6/uL (4.00-5.40); WHITE BLOOD COUNT 9.1 10^3/uL (4.0-10.0)
[2021-12-28] MEDS: NS 1,000 ML IV SCH (16:16)
[2021-12-28 16:19] LABS: INR 1.59; PROTHROMBIN TIME 19.4 SECONDS (12.7-14.5)
[2021-12-28 16:20] LABS: PARTIAL THROMBOPLASTIN TIME 37.7 SECONDS (25.9-37.0)
[2021-12-28 16:37] LABS: ALBUMIN 2.7 GM/DL (3.2-5.2); BILIRUBIN,DIRECT 0.4 MG/DL (0.0-0.2); BILIRUBIN,TOTAL 0.5 MG/DL (0.2-1.0); CALCIUM LEVEL 8.8 MG/DL (8.8-10.2); CREATININE FOR GFR 4.58 MG/DL (0.55-1.30); GLOMERULAR FILTRATION RATE 10.1 (>45); POTASSIUM SERUM 4.8 MEQ/L (3.5-5.1); THYROID STIMULATING HORMONE 14.7 uIU/ML (0.358-3.740); TOTAL PROTEIN 5.7 GM/DL (6.4-8.2)
[2021-12-28 16:40] LABS: RSV AMPLIFICATION NEGATIVE (NEGATIVE)
[2021-12-28 17:15] LABS: MB/CK RELATIVE INDEX 8.11 (< OR =4)
[2021-12-28 17:59] LABS: CK-MB VALUE MASS 2.9 NG/ML (<3.6); MB/CK RELATIVE INDEX 6.9 (< OR =4)
[2021-12-28] MEDS ORDERED: ELIQ5TAB PO (19:22)
[2021-12-28] MEDS ORDERED: ISOS1TAB36 PO (19:22)
[2021-12-28] MEDS ORDERED: AMIO200T49 PO (19:22)
[2021-12-28] MEDS ORDERED: DOCU100C16 PO (19:22)
[2021-12-28] MEDS ORDERED: HOME MED LIST COMPLETE! XX SCH (19:25)
[2021-12-28] MEDS ORDERED: (RENVELA) SEVELAMER **CARBONate** 800 MG TAB PO PRN (20:40)
[2021-12-28] MEDS ORDERED: FLUTICASONE PROP 0.05% NASAL SPRAY 16 GM (FLONASE) PRN (20:40)
[2021-12-28] MEDS ORDERED: NITROGLYCERIN 0.4 MG SUBL TABLET SL PRN (20:40)
[2021-12-28] MEDS ORDERED: IPRATROPIUM 0.5MG/ALBUTEROL 2.5MG INH SOL UD 3ML (DUONEB) INH PRN (20:40)
[2021-12-28] MEDS ORDERED: APIXABAN 5 MG TAB (ELIQUIS) PO SCH (21:00)
[2021-12-28] MEDS ORDERED: GLUCAGON INJ 1MG VIAL SC PRN (21:15)
[2021-12-28] MEDS ORDERED: GLUCOSE 4GM CHEW TABLET PO PRN (21:15)
[2021-12-28 22:50] VITALS: BP 97/44
[2021-12-28 23:00] VITALS: BP 143/67
[2021-12-28] MEDS: ATORVASTATIN 20 MG TAB PO SCH (23:02)
[2021-12-28] MEDS: busPIRone 5 MG TAB PO SCH (23:03)
[2021-12-28] MEDS: traZODone 100 MG TAB PO SCH (23:03)
[2021-12-28] MEDS: PANTOPRAZOLE 40MG TAB (PROTONIX) PO SCH (23:03)
[2021-12-28] MEDS: DOCUSATE SODIUM 100MG CAPSULE PO PRN (23:03)
[2021-12-28] MEDS: ACETAMINOPHEN 650MG ER TAB (TYLENOL ARTHRITIS) PO PRN (23:04)
[2021-12-28] MEDS: LEVEMIR (INSULIN DETEMIR) 1 UNITS/0.01ML SC SCH (23:16)
[2021-12-29] VITALS (26 sets, daily range): BP systolic 114–202; BP diastolic 53–84
[2021-12-29] MEDS: NS 1,000 ML IV SCH (00:27)
[2021-12-29 04:31] LABS: CALCIUM LEVEL 8.2 MG/DL (8.8-10.2); CREATININE FOR GFR 4.67 MG/DL (0.55-1.30); GLOMERULAR FILTRATION RATE 9.9 (>45); MAGNESIUM LEVEL 2.2 MG/DL (1.8-2.4); POTASSIUM SERUM 4.4 MEQ/L (3.5-5.1)
[2021-12-29] MEDS: INSULIN LISPRO (NovoLOG) PER UNIT SC SCH ×4 (07:30→20:36)
[2021-12-29] MEDS ORDERED: ceFAZolin SOD 2 GM in IV 1 EA IV ONE (08:00)
[2021-12-29] MEDS: (RENVELA) SEVELAMER **CARBONate** 800 MG TAB PO SCH ×3 (08:00→17:57)
[2021-12-29] MEDS: LEVEMIR (INSULIN DETEMIR) 1 UNITS/0.01ML SC SCH ×2 (08:58→21:00)
[2021-12-29] MEDS: PANTOPRAZOLE 40MG TAB (PROTONIX) PO SCH ×2 (08:58→20:55)
[2021-12-29] MEDS: ASPIRIN 81 MG CHEW TABLET PO SCH (08:58)
[2021-12-29] MEDS: busPIRone 5 MG TAB PO SCH ×2 (08:58→20:55)
[2021-12-29] MEDS: FEBUXOSTAT 40 MG TABLET (ULORIC) PO SCH (09:18)
[2021-12-29] MEDS: ISOSORBIDE MON. (IMDUR) 60 MG XR TAB PO SCH (09:18)
[2021-12-29] MEDS: DEXTROSE 50% 50 ML SYRINGE IV PRN ×2 (12:14→16:17)
[2021-12-29] MEDS ORDERED: D5W/LR 1,000 ML IV SCH (12:20)
[2021-12-29] MEDS ORDERED: LIDOCAINE 1% SDV 30ML VIAL As Ordered ONE (16:38)
[2021-12-29] MEDS ORDERED: AMIODARONE 150MG/3ML INJ (J0282) As Ordered ONE (16:39)
[2021-12-29] MEDS ORDERED: GENTAMICIN SULF 80MG/2ML VIAL As Ordered ONE (16:39)
[2021-12-29] MEDS ORDERED: ISOVUE-300 61% 50ML VIAL As Ordered ONE (16:39)
[2021-12-29] MEDS ORDERED: ceFAZolin 2 GM/D5W 50 ML IV BAG (J0690 PER 500MG) As Ordered ONE (17:24)
[2021-12-29] MEDS ORDERED: ceFAZolin 1GM VIAL (J0690 PER 500MG) As Ordered ONE (17:24)
[2021-12-29] MEDS ORDERED: LIDOCAINE 2% 100MG/5ML SDV (FOR ANES.) As Ordered ONE (17:25)
[2021-12-29] MEDS ORDERED: propofoL 200 MG/20 ML VIAL As Ordered ONE (17:25)
[2021-12-29] MEDS ORDERED: fentaNYL 100 MCG/2 ML INJECTION As Ordered ONE (17:25)
[2021-12-29] MEDS ORDERED: MIDAZOLAM INJ 2MG/2ML VIAL (J2250 PER 1MG) As Ordered ONE (17:25)
[2021-12-29] MEDS: traZODone 100 MG TAB PO SCH (20:55)
[2021-12-29] MEDS: ATORVASTATIN 20 MG TAB PO SCH (20:55)
[2021-12-30 00:08] VITALS: BP 114/49
[2021-12-30] MEDS ORDERED: RAMELTEON 8 MG TAB (ROZEREM) PO PRN (01:00)
[2021-12-30] MEDS: ceFAZolin SOD 1 GM in D5W MINI-BAG PLUS 50 ML IV SCH ×3 (02:00→21:20)
[2021-12-30 04:07] VITALS: BP 107/51
[2021-12-30] MEDS: ACETAMINOPHEN 650MG ER TAB (TYLENOL ARTHRITIS) PO PRN ×3 (04:11→20:44)
[2021-12-30] MEDS: DOCUSATE SODIUM 100MG CAPSULE PO PRN (04:41)
[2021-12-30] MEDS: LEVOTHYROXINE 25MCG TABLET (0.025MG) PO SCH (06:41)
[2021-12-30] MEDS: INSULIN LISPRO (NovoLOG) PER UNIT SC SCH ×4 (07:30→20:30)
[2021-12-30 08:00] VITALS: BP 137/60
[2021-12-30] MEDS: FEBUXOSTAT 40 MG TABLET (ULORIC) PO SCH (08:24)
[2021-12-30] MEDS: (RENVELA) SEVELAMER **CARBONate** 800 MG TAB PO SCH ×3 (08:25→20:54)
[2021-12-30] MEDS: ASPIRIN 81 MG CHEW TABLET PO SCH (08:25)
[2021-12-30] MEDS: ISOSORBIDE MON. (IMDUR) 60 MG XR TAB PO SCH (08:25)
[2021-12-30] MEDS: AMIODARONE 100MG TABLET (PACERONE) PO SCH (08:25)
[2021-12-30] MEDS: busPIRone 5 MG TAB PO SCH ×2 (08:25→20:44)
[2021-12-30] MEDS: PANTOPRAZOLE 40MG TAB (PROTONIX) PO SCH ×2 (08:25→20:44)
[2021-12-30] MEDS: LEVEMIR (INSULIN DETEMIR) 1 UNITS/0.01ML SC SCH ×2 (08:38→09:11)
[2021-12-30 09:22] LABS: INR 1.17; PROTHROMBIN TIME 15.3 SECONDS (12.7-14.5)
[2021-12-30 09:42] LABS: CALCIUM LEVEL 9.4 MG/DL (8.8-10.2); CHOLESTEROL RISK RATIO 3.131 (<5); CREATININE FOR GFR 5.9 MG/DL (0.55-1.30); GLOMERULAR FILTRATION RATE 7.5 (>45); MAGNESIUM LEVEL 2.5 MG/DL (1.8-2.4); PHOSPHORUS LEVEL 8.4 MG/DL (2.5-4.9); POTASSIUM SERUM 4.8 MEQ/L (3.5-5.1)
[2021-12-30] MEDS ORDERED: SODIUM CHLORIDE 0.9% 1000ML IV PRN (10:25)
[2021-12-30 12:00] VITALS: BP 141/65
[2021-12-30] MEDS ORDERED: ONDANSETRON 4MG/2ML VIAL IV ONE (15:30)
[2021-12-30 20:00] VITALS: BP 137/68
[2021-12-30] MEDS: traZODone 100 MG TAB PO SCH (20:43)
[2021-12-30] MEDS ORDERED: ATORVASTATIN 10 MG TAB PO SCH (21:00)
[2021-12-30] MEDS ORDERED: ONDANSETRON 4MG/2ML VIAL IV PRN (23:35)
[2021-12-31] VITALS: BP 135/55
[2021-12-31] MEDS ORDERED: SODIUM CHLORIDE 0.9% 1000ML IV PRN (00:25)
[2021-12-31 04:00] VITALS: BP 122/57
[2021-12-31] MEDS: ACETAMINOPHEN 650MG ER TAB (TYLENOL ARTHRITIS) PO PRN (04:25)
[2021-12-31] MEDS: LEVOTHYROXINE 25MCG TABLET (0.025MG) PO SCH (05:25)
[2021-12-31] MEDS: INSULIN LISPRO (NovoLOG) PER UNIT SC SCH ×2 (07:30→12:00)
[2021-12-31] MEDS ORDERED: APIXABAN 2.5 MG TAB (ELIQUIS) PO SCH (08:00)
[2021-12-31 09:00] VITALS: BP 100/50
[2021-12-31] MEDS: ISOSORBIDE MON. (IMDUR) 60 MG XR TAB PO SCH (09:00)
[2021-12-31] MEDS ORDERED: DARBEPOETIN 100 MCG/0.5 ML *DIALYSIS* SYRINGE (J0882) IV SCH (09:00)
[2021-12-31] MEDS ORDERED: AMLO25TA PO (10:09)
[2021-12-31] MEDS ORDERED: ELIQ2.5T PO (10:09)
[2021-12-31] MEDS ORDERED: ATOR1TAB19 PO (10:09)
[2021-12-31] MEDS ORDERED: AMIO0.1T PO (10:09)
[2021-12-31] MEDS ORDERED: ASPI81CH8 PO (10:09)
[2021-12-31] MEDS: (RENVELA) SEVELAMER **CARBONate** 800 MG TAB PO SCH ×2 (10:30→12:34)
[2021-12-31 12:01] VITALS: BP 100/50
[2021-12-31] MEDS: LEVEMIR (INSULIN DETEMIR) 1 UNITS/0.01ML SC SCH (12:32)
[2021-12-31] MEDS: DOCUSATE SODIUM 100MG CAPSULE PO PRN (12:32)
[2021-12-31] MEDS: PANTOPRAZOLE 40MG TAB (PROTONIX) PO SCH (12:33)
[2021-12-31] MEDS: ASPIRIN 81 MG CHEW TABLET PO SCH (12:33)
[2021-12-31] MEDS: busPIRone 5 MG TAB PO SCH (12:33)
[2021-12-31] MEDS: FEBUXOSTAT 40 MG TABLET (ULORIC) PO SCH (12:33)
[2021-12-31] MEDS: AMIODARONE 100MG TABLET (PACERONE) PO SCH (12:34)
[2021-12-31] MEDS ORDERED: ISOS1TAB35 PO (12:39)
== END 2021-12-31 14:03 | disposition home or self-care (01) ==
LOC: EDBD 15:22 → M ED 15:22 → M ED INP 20:19 → INTOOBSV 20:19 → M ICU 22:41 → M PCU 12-31 08:10
PROVIDERS: ADMIT Internal Medicine; ATTEND Internal Medicine
DX: R00.1 Bradycardia, unspecified (principal); I49.5 Sick sinus syndrome; R55 Syncope and collapse; I50.42 Chronic combined systolic (congestive) and diastolic (congestive) heart failure; I27.81 Cor pulmonale (chronic); G47.33 Obstructive sleep apnea (adult) (pediatric); I48.0 Paroxysmal atrial fibrillation; E11.9 Type 2 diabetes mellitus without complications; Z79.4 Long term (current) use of insulin; Z79.01 Long term (current) use of anticoagulants; Z99.81 Dependence on supplemental oxygen; R79.89 Other specified abnormal findings of blood chemistry; N18.6 End stage renal disease; Z79.899 Other long term (current) drug therapy; I25.10 Atherosclerotic heart disease of native coronary artery without angina pectoris
CPT/HCPCS: 33208; 36415; 71045; 71046; 76000; 80048; 80061; 80076; 82140; 82550; 82553; 83690; 83735; 83880; 84100; 84443; 84484; 85025; 85610; 85730; 87426; 87631; 93005; 93041; 94760; 96361; 96365; 96366; 96375; 96376; 97116; 97161; 97530; 99285; C1785; C1898; G0257; G0378; J0690; J0882; J1815; J2250; J2405; J3010

== ENCOUNTER → 2022-01-04 | Outpatient (CLI) | payer MEDICAID, OTHER ==
[~2022-01-04] MED LIST changes: +AMIO0.1T PO; +AMIO100T3 PO; +AMIO200T49 PO; +AMLO2.5T3 PO; +AMLO25TA PO; +ASPI81CH8 PO; +ATOR1TAB19 PO; +DOCU100C16 PO; +E-Z-GAS II EFFERVESCENT PACKET (SODIUM BICARB./CITRIC ACID/SIMETHICONE) As Ordered ONE; +E-Z-HD 98% w/w 340GM SUSP BTL As Ordered ONE; +E-Z-PAQUE 96% w/w SUSP 176GM BTL As Ordered ONE; +ELIQ2.5T PO; +ELIQ5TAB PO; +ISOS1TAB35 PO
== END ==
LOC: M RAD 08:41
PROVIDERS: ATTEND Internal Medicine Nephrology
DX: K21.9 Gastro-esophageal reflux disease without esophagitis (principal); R11.10 Vomiting, unspecified

== ENCOUNTER 2022-01-09 17:26 | Inpatient (IN) | payer OTHER ==
[~2022-01-09] VITALS: Ht 157.5 cm; Wt 85.3 kg
[~2022-01-09 17:26] MED LIST changes: -AMIO100T3 PO; -AMLO2.5T3 PO; -E-Z-GAS II EFFERVESCENT PACKET (SODIUM BICARB./CITRIC ACID/SIMETHICONE) As Ordered ONE; -E-Z-HD 98% w/w 340GM SUSP BTL As Ordered ONE; -E-Z-PAQUE 96% w/w SUSP 176GM BTL As Ordered ONE
[2022-01-09 20:00] LABS: BASO % 0.4 % (0.0-1.0); EOS % 0.4 % (0.0-3.0); HEMATOCRIT 30.4 % (36.0-47.0); HEMOGLOBIN 9.1 g/dl (12.0-15.5); LYMPH # 0.6 10^3/uL (1.5-5.0); LYMPH % 10.6 % (24.0-44.0); MEAN CORPUSCULAR HEMOGLOBIN 31.3 pg (27.0-33.0); MEAN CORPUSCULAR HGB CONC 29.9 g/dl (32.0-36.5); MEAN CORPUSCULAR VOLUME 104.5 fl (80.0-96.0); MONO # 0.5 10^3/uL (0.0-0.8); MONO % 9.1 % (2.0-8.0); NEUTROPHILS % 74.6 % (36.0-66.0); PLATELET COUNT, AUTOMATED 246 10^3/uL (150-450); RED BLOOD COUNT 2.91 10^6/uL (4.00-5.40); WHITE BLOOD COUNT 5.3 10^3/uL (4.0-10.0)
[2022-01-09 20:18] LABS: INR 1.19; PROTHROMBIN TIME 15.5 SECONDS (12.7-14.5)
[2022-01-09 20:19] LABS: PARTIAL THROMBOPLASTIN TIME 43.2 SECONDS (25.9-37.0)
[2022-01-09 20:44] LABS: ALBUMIN 2.5 GM/DL (3.2-5.2); BILIRUBIN,DIRECT 0.5 MG/DL (0.0-0.2); BILIRUBIN,TOTAL 0.5 MG/DL (0.2-1.0); CALCIUM LEVEL 8.2 MG/DL (8.8-10.2); CREATININE FOR GFR 5.29 MG/DL (0.55-1.30); GLOMERULAR FILTRATION RATE 8.6 (>45); POTASSIUM SERUM 4.6 MEQ/L (3.5-5.1); THYROXINE (T4) 7.6 UG/DL (4.5-12.0); TOTAL PROTEIN 5.8 GM/DL (6.4-8.2)
[2022-01-09] MEDS ORDERED: ISOS1TAB35 PO (22:41)
[2022-01-09] MEDS ORDERED: AMIO100T3 PO (22:41)
[2022-01-09] MEDS ORDERED: AMLO2.5T3 PO (22:41)
[2022-01-09] MEDS ORDERED: ATOR1TAB19 PO (22:41)
[2022-01-09] MEDS ORDERED: HOME MED LIST COMPLETE! XX SCH (22:45)
[2022-01-09] MEDS ORDERED: GLUCOSE 4GM CHEW TABLET PO PRN (23:50)
[2022-01-09] MEDS ORDERED: GLUCAGON INJ 1MG VIAL SC PRN (23:50)
[2022-01-09] MEDS ORDERED: DEXTROSE 50% 50 ML SYRINGE IV PRN (23:50)
[2022-01-10] VITALS (8 sets, daily range): BP systolic 100–143; BP diastolic 44–63; O2SAT 96–98
[2022-01-10] MEDS ORDERED: MOM 30ML SUSPENSION UDC PO PRN
[2022-01-10] MEDS ORDERED: FLUTICASONE PROP 0.05% NASAL SPRAY 16 GM (FLONASE) PRN
[2022-01-10] MEDS ORDERED: MIRALAX *UNIT DOSE* 17GM PACKET PO PRN
[2022-01-10] MEDS ORDERED: COLCHICINE 0.6 MG TABLET PO PRN
[2022-01-10] MEDS ORDERED: NYSTATIN 100,000 UNITS/GM TOPICAL PWD 15 GM TOP PRN
[2022-01-10] MEDS ORDERED: IPRATROPIUM 0.5MG/ALBUTEROL 2.5MG INH SOL UD 3ML (DUONEB) INH PRN
[2022-01-10] MEDS ORDERED: ACETAMINOPHEN 650MG ER TAB (TYLENOL ARTHRITIS) PO PRN
[2022-01-10] MEDS ORDERED: DOCUSATE SODIUM 100MG CAPSULE PO PRN
[2022-01-10] MEDS ORDERED: (RENVELA) SEVELAMER **CARBONate** 800 MG TAB PO PRN
[2022-01-10] MEDS ORDERED: FUROSEMIDE 20MG/2ML VIAL (J1940) IV ONE (01:00)
[2022-01-10] MEDS: traZODone 100 MG TAB PO SCH ×2 (01:06→20:44)
[2022-01-10] MEDS: PANTOPRAZOLE 40MG TAB (PROTONIX) PO SCH ×3 (01:06→20:45)
[2022-01-10] MEDS: ATORVASTATIN 10 MG TAB PO SCH ×2 (01:06→20:45)
[2022-01-10] MEDS: busPIRone 5 MG TAB PO SCH ×3 (01:07→20:45)
[2022-01-10 04:33] LABS: BASO % 0.9 % (0.0-1.0); EOS % 0.9 % (0.0-3.0); HEMATOCRIT 29.9 % (36.0-47.0); LYMPH # 0.5 10^3/uL (1.5-5.0); LYMPH % 10.4 % (24.0-44.0); MEAN CORPUSCULAR HEMOGLOBIN 30.4 pg (27.0-33.0); MEAN CORPUSCULAR HGB CONC 30.1 g/dl (32.0-36.5); MONO # 0.4 10^3/uL (0.0-0.8); NEUTROPHILS # 3.4 10^3/uL (1.5-8.5); NEUTROPHILS % 75.6 % (36.0-66.0); PLATELET COUNT, AUTOMATED 259 10^3/uL (150-450); RED BLOOD COUNT 2.96 10^6/uL (4.00-5.40); WHITE BLOOD COUNT 4.5 10^3/uL (4.0-10.0)
[2022-01-10 05:00] LABS: ALBUMIN 2.5 GM/DL (3.2-5.2); BILIRUBIN,DIRECT 0.4 MG/DL (0.0-0.2); BILIRUBIN,TOTAL 0.4 MG/DL (0.2-1.0); C REACTIVE PROTEIN QUANTITATIV 7.8 MG/DL (0.00-0.30); CALCIUM LEVEL 7.6 MG/DL (8.8-10.2); CREATININE FOR GFR 5.63 MG/DL (0.55-1.30); POTASSIUM SERUM 4.2 MEQ/L (3.5-5.1); TOTAL PROTEIN 5.4 GM/DL (6.4-8.2)
[2022-01-10] MEDS: HEPARIN SOD (PORCINE) 5000UNITS/ML 1ML VIAL/SYRINGE SQ SCH ×3 (05:34→22:00)
[2022-01-10] MEDS ORDERED: REMDESIVIR 200 MG in NS 250 ML IV ONE (06:00)
[2022-01-10] MEDS: INSULIN LISPRO (NovoLOG) PER UNIT SC SCH ×4 (07:30→20:49)
[2022-01-10] MEDS ORDERED: SODIUM CHLORIDE 0.9% INJ 10 ML SYR IV ONE (08:00)
[2022-01-10] MEDS: AMIODARONE 100MG TABLET (PACERONE) PO SCH (09:38)
[2022-01-10] MEDS: FEBUXOSTAT 40 MG TABLET (ULORIC) PO SCH (09:39)
[2022-01-10] MEDS: (RENVELA) SEVELAMER **CARBONate** 800 MG TAB PO SCH ×3 (09:39→18:26)
[2022-01-10] MEDS ORDERED: SODIUM CHLORIDE 0.9% 1000ML IV PRN (09:40)
[2022-01-10] MEDS: dexameTHASONE 4 MG/ML 1ML VIAL (J1100 PER 1MG) IV SCH (09:41)
[2022-01-10] MEDS: ISOSORBIDE MON. (IMDUR) 30MG XR TAB PO SCH (09:43)
[2022-01-10] MEDS: guaiFENesin ER 600 MG TAB PO SCH ×2 (10:56→20:45)
[2022-01-10] MEDS: MIDODRINE 5 MG TAB PO SCH (12:30)
[2022-01-10] MEDS: REMDESIVIR 100 MG in NS 250 ML IV SCH (18:26)
[2022-01-10] MEDS: SODIUM CHLORIDE 0.9% INJ 10 ML SYR IV SCH (18:27)
[2022-01-10] MEDS: RAMELTEON 8 MG TAB (ROZEREM) PO PRN (20:44)
[2022-01-11] VITALS (7 sets, daily range): BP systolic 112–187; BP diastolic 50–81; O2SAT 94–95
[2022-01-11] MEDS ORDERED: diphenhydrAMINE 25MG CAP PO ONE (01:00)
[2022-01-11] MEDS: HEPARIN SOD (PORCINE) 5000UNITS/ML 1ML VIAL/SYRINGE SQ SCH ×3 (05:14→21:41)
[2022-01-11] MEDS ORDERED: REMDESIVIR 100 MG in NS 250 ML IV SCH (06:00)
[2022-01-11 06:25] LABS: BASO % 0.5 % (0.0-1.0); HEMATOCRIT 33.4 % (36.0-47.0); LYMPH # 0.4 10^3/uL (1.5-5.0); LYMPH % 6.1 % (24.0-44.0); MEAN CORPUSCULAR HEMOGLOBIN 29.8 pg (27.0-33.0); MEAN CORPUSCULAR HGB CONC 29.9 g/dl (32.0-36.5); MEAN CORPUSCULAR VOLUME 99.4 fl (80.0-96.0); MONO # 0.6 10^3/uL (0.0-0.8); MONO % 9.3 % (2.0-8.0); NEUTROPHILS # 5.1 10^3/uL (1.5-8.5); NEUTROPHILS % 80.3 % (36.0-66.0); PLATELET COUNT, AUTOMATED 324 10^3/uL (150-450); RED BLOOD COUNT 3.36 10^6/uL (4.00-5.40); WHITE BLOOD COUNT 6.4 10^3/uL (4.0-10.0)
[2022-01-11 06:44] LABS: INR 1.12; PROTHROMBIN TIME 14.8 SECONDS (12.7-14.5)
[2022-01-11 06:44] LABS: ALBUMIN 2.7 GM/DL (3.2-5.2); BILIRUBIN,DIRECT 0.3 MG/DL (0.0-0.2); BILIRUBIN,TOTAL 0.6 MG/DL (0.2-1.0); CALCIUM LEVEL 8.4 MG/DL (8.8-10.2); CREATININE FOR GFR 4.41 MG/DL (0.55-1.30); GLOMERULAR FILTRATION RATE 10.6 (>45); POTASSIUM SERUM 4.2 MEQ/L (3.5-5.1); TOTAL PROTEIN 6.1 GM/DL (6.4-8.2)
[2022-01-11 06:50] LABS: PARTIAL THROMBOPLASTIN TIME 45.2 SECONDS (25.9-37.0)
[2022-01-11] MEDS ORDERED: SODIUM CHLORIDE 0.9% INJ 10 ML SYR IV SCH (07:00)
[2022-01-11] MEDS: INSULIN LISPRO (NovoLOG) PER UNIT SC SCH ×4 (07:30→20:29)
[2022-01-11] MEDS: ISOSORBIDE MON. (IMDUR) 30MG XR TAB PO SCH (08:17)
[2022-01-11] MEDS: FEBUXOSTAT 40 MG TABLET (ULORIC) PO SCH (08:17)
[2022-01-11] MEDS: PANTOPRAZOLE 40MG TAB (PROTONIX) PO SCH ×2 (08:17→20:29)
[2022-01-11] MEDS: AMIODARONE 100MG TABLET (PACERONE) PO SCH (08:17)
[2022-01-11] MEDS: (RENVELA) SEVELAMER **CARBONate** 800 MG TAB PO SCH ×3 (08:18→20:29)
[2022-01-11] MEDS: guaiFENesin ER 600 MG TAB PO SCH ×2 (08:18→20:29)
[2022-01-11] MEDS: dexameTHASONE 4 MG/ML 1ML VIAL (J1100 PER 1MG) IV SCH (08:18)
[2022-01-11] MEDS: busPIRone 5 MG TAB PO SCH ×2 (08:18→20:30)
[2022-01-11] MEDS ORDERED: SODIUM CHLORIDE 0.9% 1000ML IV PRN (08:25)
[2022-01-11] MEDS ORDERED: ISOVUE-370 76% 100ML VIAL As Ordered ONE (10:42)
[2022-01-11] MEDS: REMDESIVIR 100 MG in NS 250 ML IV SCH (20:28)
[2022-01-11] MEDS: ATORVASTATIN 10 MG TAB PO SCH (20:29)
[2022-01-11] MEDS: traZODone 100 MG TAB PO SCH (20:29)
[2022-01-11] MEDS: RAMELTEON 8 MG TAB (ROZEREM) PO PRN (20:30)
[2022-01-11] MEDS: SODIUM CHLORIDE 0.9% INJ 10 ML SYR IV SCH (21:40)
[2022-01-12] VITALS: BP 134/96
[2022-01-12 04:00] VITALS: BP 128/60
[2022-01-12] MEDS: HEPARIN SOD (PORCINE) 5000UNITS/ML 1ML VIAL/SYRINGE SQ SCH ×2 (05:06→15:00)
[2022-01-12] MEDS ORDERED: SODIUM CHLORIDE 0.9% 1000ML IV PRN (06:00)
[2022-01-12] MEDS ORDERED: LIDOCAINE 1% SDV 5ML VIAL SC PRN (06:00)
[2022-01-12 06:10] LABS: BASO % 0.5 % (0.0-1.0); HEMATOCRIT 34.8 % (36.0-47.0); HEMOGLOBIN 10.8 g/dl (12.0-15.5); LYMPH # 0.4 10^3/uL (1.5-5.0); LYMPH % 5.7 % (24.0-44.0); MEAN CORPUSCULAR HEMOGLOBIN 31.1 pg (27.0-33.0); MEAN CORPUSCULAR VOLUME 100.3 fl (80.0-96.0); MONO % 12.5 % (2.0-8.0); NEUTROPHILS # 5.9 10^3/uL (1.5-8.5); NEUTROPHILS % 76.9 % (36.0-66.0); PLATELET COUNT, AUTOMATED 349 10^3/uL (150-450); RED BLOOD COUNT 3.47 10^6/uL (4.00-5.40); WHITE BLOOD COUNT 7.7 10^3/uL (4.0-10.0)
[2022-01-12 06:31] LABS: CALCIUM LEVEL 8.5 MG/DL (8.8-10.2); CREATININE FOR GFR 5.63 MG/DL (0.55-1.30); POTASSIUM SERUM 5.3 MEQ/L (3.5-5.1)
[2022-01-12] MEDS: INSULIN LISPRO (NovoLOG) PER UNIT SC SCH ×2 (07:30→11:14)
[2022-01-12 08:00] VITALS: BP 131/59
[2022-01-12] MEDS: FEBUXOSTAT 40 MG TABLET (ULORIC) PO SCH (08:08)
[2022-01-12] MEDS: (RENVELA) SEVELAMER **CARBONate** 800 MG TAB PO SCH ×3 (08:09→17:35)
[2022-01-12] MEDS: guaiFENesin ER 600 MG TAB PO SCH (08:09)
[2022-01-12] MEDS: dexameTHASONE 4 MG/ML 1ML VIAL (J1100 PER 1MG) IV SCH (08:10)
[2022-01-12] MEDS: busPIRone 5 MG TAB PO SCH (08:10)
[2022-01-12] MEDS: PANTOPRAZOLE 40MG TAB (PROTONIX) PO SCH (08:10)
[2022-01-12] MEDS: AMIODARONE 100MG TABLET (PACERONE) PO SCH (08:10)
[2022-01-12 08:13] VITALS: BP 131/59
[2022-01-12] MEDS: ISOSORBIDE MON. (IMDUR) 30MG XR TAB PO SCH (08:13)
[2022-01-12] MEDS ORDERED: NYSTATIN 100,000 UNITS/GM TOPICAL PWD 15 GM TOP SCH (09:00)
[2022-01-12] MEDS: MIDODRINE 5 MG TAB PO SCH (11:00)
[2022-01-12 11:30] VITALS: BP 130/68
[2022-01-12 16:14] VITALS: BP 122/59
== END 2022-01-12 19:30 | disposition left against medical advice (07) | DRG 177 ==
LOC: M ED 17:26 → M ED INP 01-10 00:51 → ENRESERV 01-10 00:53 → M ICU 01-10 02:37
PROVIDERS: ADMIT Family Medicine; ATTEND Internal Medicine
PROC: 5A1D70Z Performance of Urinary Filtration, Intermittent, Less than 6 Hours Per Day (ICD-10-PCS; principal; 2022-01-10)
PROC: XW033E5 Introduction of Remdesivir Anti-infective into Peripheral Vein, Percutaneous Approach, New Technology Group 5 (ICD-10-PCS; 2022-01-10)
PROC: 3E0333Z Introduction of Anti-inflammatory into Peripheral Vein, Percutaneous Approach (ICD-10-PCS; 2022-01-10)
DX: U07.1 COVID-19 (principal); N18.6 End stage renal disease; J81.1 Chronic pulmonary edema; I13.2 Hypertensive heart and chronic kidney disease with heart failure and with stage 5 chronic kidney disease, or end stage renal disease; J44.9 Chronic obstructive pulmonary disease, unspecified; I48.91 Unspecified atrial fibrillation; I50.9 Heart failure, unspecified; I25.2 Old myocardial infarction; G47.33 Obstructive sleep apnea (adult) (pediatric); E11.22 Type 2 diabetes mellitus with diabetic chronic kidney disease; F41.9 Anxiety disorder, unspecified; D64.9 Anemia, unspecified; K21.9 Gastro-esophageal reflux disease without esophagitis; E66.9 Obesity, unspecified; K57.90 Diverticulosis of intestine, part unspecified, without perforation or abscess without bleeding; K59.09 Other constipation; L30.4 Erythema intertrigo; M19.90 Unspecified osteoarthritis, unspecified site; R53.1 Weakness; M10.9 Gout, unspecified; Z99.81 Dependence on supplemental oxygen; Z95.5 Presence of coronary angioplasty implant and graft; Z95.0 Presence of cardiac pacemaker; Z99.2 Dependence on renal dialysis; Z90.49 Acquired absence of other specified parts of digestive tract; Z79.4 Long term (current) use of insulin; Z79.899 Other long term (current) drug therapy; Z88.5 Allergy status to narcotic agent; Z88.8 Allergy status to other drugs, medicaments and biological substances; Z91.048 Other nonmedicinal substance allergy status; Z68.34 Body mass index [BMI] 34.0-34.9, adult; E87.70 Fluid overload, unspecified; G47.00 Insomnia, unspecified

== ENCOUNTER 2022-01-27 23:53 | Inpatient (IN) | payer OTHER, MEDICAID ==
[~2022-01-27] VITALS: Ht 154.9 cm; Wt 81.0 kg
[~2022-01-27 23:53] MED LIST changes: +AMIO100T3 PO; +AMLO2.5T3 PO
[2022-01-28] VITALS (15 sets, daily range): BP systolic 96–136; BP diastolic 47–73
[2022-01-28] MEDS ORDERED: MIDODRINE 5 MG TAB PO ONE (03:00)
[2022-01-28] MEDS ORDERED: NS 500 ML IV ONE (03:15)
[2022-01-28] MEDS ORDERED: GLUCAGON INJ 1MG VIAL SC PRN (03:15)
[2022-01-28] MEDS ORDERED: GLUCOSE 4GM CHEW TABLET PO PRN (03:15)
[2022-01-28] MEDS ORDERED: PANTOPRAZOLE 40MG VIAL IV ONE (04:00)
[2022-01-28 04:20] LABS: HEMATOCRIT 33.1 % (36.0-47.0); HEMOGLOBIN 9.8 g/dl (12.0-15.5); MEAN CORPUSCULAR HGB CONC 29.6 g/dl (32.0-36.5); MEAN CORPUSCULAR VOLUME 104.7 fl (80.0-96.0); PLATELET COUNT, AUTOMATED 300 10^3/uL (150-450); RED BLOOD COUNT 3.16 10^6/uL (4.00-5.40); WHITE BLOOD COUNT 8.5 10^3/uL (4.0-10.0)
[2022-01-28 04:45] LABS: LYMPHOCYTES 10 % (16-44); NEUTROPHILS 90 % (28-66)
[2022-01-28 04:46] LABS: PLATELET ESTIMATE NORMAL (NORMAL)
[2022-01-28 04:48] LABS: ALBUMIN 2.1 GM/DL (3.2-5.2); BILIRUBIN,TOTAL 0.7 MG/DL (0.2-1.0); CALCIUM LEVEL 8.2 MG/DL (8.8-10.2); CREATININE FOR GFR 4.23 MG/DL (0.55-1.30); GLOMERULAR FILTRATION RATE 11.1 (>45); MAGNESIUM LEVEL 2.2 MG/DL (1.8-2.4); PHOSPHORUS LEVEL 5.4 MG/DL (2.5-4.9); POTASSIUM SERUM 6.1 MEQ/L (3.5-5.1); TOTAL PROTEIN 5.9 GM/DL (6.4-8.2)
[2022-01-28] MEDS: INSULIN LISPRO (NovoLOG) PER UNIT SC SCH ×4 (06:00→23:42)
[2022-01-28] MEDS: MIDODRINE 5 MG TAB PO SCH ×3 (08:08→18:50)
[2022-01-28] MEDS ORDERED: SODIUM CHLORIDE 0.9% 1000ML IV PRN (10:35)
[2022-01-28 11:32] LABS: HEMATOCRIT 31.5 % (36.0-47.0); HEMOGLOBIN 9.6 g/dl (12.0-15.5)
[2022-01-28 12:14] LABS: CALCIUM LEVEL 8.6 MG/DL (8.8-10.2); CREATININE FOR GFR 4.63 MG/DL (0.55-1.30); POTASSIUM SERUM 6.4 MEQ/L (3.5-5.1)
[2022-01-28] MEDS ORDERED: HYDR-3363 PO (13:39)
[2022-01-28] MEDS ORDERED: VELP5CHW PO (13:39)
[2022-01-28] MEDS ORDERED: FERR325T82 PO (13:43)
[2022-01-28] MEDS ORDERED: ELIQ2.5T PO (13:43)
[2022-01-28] MEDS ORDERED: TORS100T PO (13:43)
[2022-01-28] MEDS ORDERED: HOME MED LIST COMPLETE! XX SCH (13:45)
[2022-01-28] MEDS ORDERED: MIRALAX *UNIT DOSE* 17GM PACKET PO PRN (17:05)
[2022-01-28] MEDS ORDERED: IPRATROPIUM 0.5MG/ALBUTEROL 2.5MG INH SOL UD 3ML (DUONEB) INH PRN (17:05)
[2022-01-28] MEDS ORDERED: DOCUSATE SODIUM 100MG CAPSULE PO PRN (17:05)
[2022-01-28] MEDS ORDERED: ACETAMINOPHEN 500 MG TAB PO ONE (18:00)
[2022-01-28] MEDS: (RENVELA) SEVELAMER **CARBONate** 800 MG TAB PO SCH (18:50)
[2022-01-28] MEDS: NYSTATIN 100,000 UNITS/GM TOPICAL PWD 15 GM TOP SCH ×2 (18:50→21:24)
[2022-01-28] MEDS ORDERED: ISOVUE-370 76% 100ML VIAL As Ordered ONE (20:30)
[2022-01-28 20:53] LABS: THYROID STIMULATING HORMONE 12.7 uIU/ML (0.358-3.740)
[2022-01-28] MEDS ORDERED: PANTOPRAZOLE 40MG TAB (PROTONIX) PO SCH (21:00)
[2022-01-28] MEDS ORDERED: ATORVASTATIN 10 MG TAB PO SCH (21:00)
[2022-01-28] MEDS: ATORVASTATIN 10 MG TAB PO SCH (21:23)
[2022-01-28] MEDS: busPIRone 5 MG TAB PO SCH (21:23)
[2022-01-28] MEDS: LEVEMIR (INSULIN DETEMIR) 1 UNITS/0.01ML SC SCH (21:23)
[2022-01-28] MEDS: PANTOPRAZOLE 40MG VIAL IV SCH (21:23)
[2022-01-28] MEDS: LIDOCAINE 4% CREAM 5GM (LMX4) TOP PRN (21:41)
[2022-01-28] MEDS: AZITHROMYCIN INJ 500 MG, VIAL MATE ADAPTER 1 EACH in NS 250 ML IV SCH (23:41)
[2022-01-29] VITALS (9 sets, daily range): BP systolic 109–167; BP diastolic 55–72
[2022-01-29] MEDS: PIPERACILLIN/TAZOBACTAM SOD 2.25 GM in D5W MINI-BAG PLUS 50 ML IV SCH ×3 (01:18→16:43)
[2022-01-29] MEDS: DEXTROSE 50% 50 ML SYRINGE IV PRN ×5 (05:21→18:41)
[2022-01-29] MEDS: INSULIN LISPRO (NovoLOG) PER UNIT SC SCH ×4 (05:26→23:21)
[2022-01-29 05:29] LABS: HEMATOCRIT 31.8 % (36.0-47.0); HEMOGLOBIN 9.9 g/dl (12.0-15.5); MEAN CORPUSCULAR HEMOGLOBIN 31.2 pg (27.0-33.0); MEAN CORPUSCULAR HGB CONC 31.1 g/dl (32.0-36.5); MEAN CORPUSCULAR VOLUME 100.3 fl (80.0-96.0); PLATELET COUNT, AUTOMATED 337 10^3/uL (150-450); RED BLOOD COUNT 3.17 10^6/uL (4.00-5.40)
[2022-01-29 06:01] LABS: HEMOGLOBIN A1c 5.7 %
[2022-01-29 06:03] LABS: CHOLESTEROL RISK RATIO 2.578 (<5); CREATININE FOR GFR 2.99 MG/DL (0.55-1.30); GLOMERULAR FILTRATION RATE 16.5 (>45); MAGNESIUM LEVEL 2.2 MG/DL (1.8-2.4); PHOSPHORUS LEVEL 4.9 MG/DL (2.5-4.9); POTASSIUM SERUM 4.2 MEQ/L (3.5-5.1)
[2022-01-29] MEDS: LEVEMIR (INSULIN DETEMIR) 1 UNITS/0.01ML SC SCH (08:31)
[2022-01-29] MEDS: (RENVELA) SEVELAMER **CARBONate** 800 MG TAB PO SCH ×3 (08:41→16:43)
[2022-01-29] MEDS: FEBUXOSTAT 40 MG TABLET (ULORIC) PO SCH (08:41)
[2022-01-29] MEDS: FERROUS SULFATE 325MG TAB PO SCH (08:41)
[2022-01-29] MEDS: busPIRone 5 MG TAB PO SCH ×2 (08:41→21:00)
[2022-01-29] MEDS: MIDODRINE 5 MG TAB PO SCH ×3 (08:41→16:43)
[2022-01-29] MEDS: AMIODARONE 100MG TABLET (PACERONE) PO SCH (08:41)
[2022-01-29] MEDS: PANTOPRAZOLE 40MG VIAL IV SCH ×2 (08:41→21:00)
[2022-01-29] MEDS: NYSTATIN 100,000 UNITS/GM TOPICAL PWD 15 GM TOP SCH ×2 (08:42→21:00)
[2022-01-29] MEDS ORDERED: ASPIRIN 325 MG TAB PO ONE (09:45)
[2022-01-29 10:57] LABS: FREE T4 0.76 NG/DL (0.76-1.46)
[2022-01-29] MEDS ORDERED: SODIUM CHLORIDE 0.9% 1000ML IV PRN (11:00)
[2022-01-29 11:46] LABS: HEMOGLOBIN 11.4 g/dl (12.0-15.5)
[2022-01-29] MEDS ORDERED: propofoL 200 MG/20 ML VIAL As Ordered ONE (18:54)
[2022-01-29] MEDS ORDERED: ROCURONIUM BROMIDE 50 MG/5 ML VIAL As Ordered ONE (18:54)
[2022-01-29] MEDS ORDERED: dexameTHASONE 4 MG/ML 1ML VIAL (J1100 PER 1MG) As Ordered ONE (18:55)
[2022-01-29] MEDS ORDERED: fentaNYL 100 MCG/2 ML INJECTION As Ordered ONE (18:55)
[2022-01-29] MEDS ORDERED: ONDANSETRON 4MG 2ML VIAL As Ordered ONE (18:56)
[2022-01-29] MEDS: ATORVASTATIN 10 MG TAB PO SCH (21:00)
[2022-01-29] MEDS ORDERED: PHENYLephrine 500MCG 5ML (100MCG/ML) SYRINGE As Ordered ONE (21:39)
[2022-01-29] MEDS ORDERED: NALOXONE INJ 0.4MG/1ML VIAL (J2310 PER 1MG) As Ordered ONE (21:52)
[2022-01-29] MEDS: AZITHROMYCIN INJ 500 MG, VIAL MATE ADAPTER 1 EACH in NS 250 ML IV SCH (23:21)
[2022-01-30] VITALS (50 sets, daily range): BP systolic 77–149; BP diastolic 32–87; O2SAT 92
[2022-01-30] MEDS: PIPERACILLIN/TAZOBACTAM SOD 2.25 GM in D5W MINI-BAG PLUS 50 ML IV SCH ×3 (00:28→16:40)
[2022-01-30] MEDS: DEXTROSE 50% 50 ML SYRINGE IV PRN (03:49)
[2022-01-30 04:57] LABS: HEMATOCRIT 30.2 % (36.0-47.0); MEAN CORPUSCULAR HEMOGLOBIN 31.4 pg (27.0-33.0); MEAN CORPUSCULAR HGB CONC 30.8 g/dl (32.0-36.5); PLATELET COUNT, AUTOMATED 354 10^3/uL (150-450); RED BLOOD COUNT 2.96 10^6/uL (4.00-5.40); WHITE BLOOD COUNT 12.1 10^3/uL (4.0-10.0)
[2022-01-30 05:01] LABS: HEMOGLOBIN 9.3 g/dl (12.0-15.5)
[2022-01-30 05:18] LABS: CALCIUM LEVEL 8.8 MG/DL (8.8-10.2); CREATININE FOR GFR 2.7 MG/DL (0.55-1.30); GLOMERULAR FILTRATION RATE 18.6 (>45); MAGNESIUM LEVEL 1.8 MG/DL (1.8-2.4); POTASSIUM SERUM 3.9 MEQ/L (3.5-5.1)
[2022-01-30] MEDS: INSULIN LISPRO (NovoLOG) PER UNIT SC SCH ×3 (07:00→18:00)
[2022-01-30] MEDS: NYSTATIN 100,000 UNITS/GM TOPICAL PWD 15 GM TOP SCH ×2 (08:50→20:09)
[2022-01-30] MEDS: FERROUS SULFATE 325MG TAB PO SCH (08:51)
[2022-01-30] MEDS: MIDODRINE 5 MG TAB PO SCH ×3 (08:51→16:40)
[2022-01-30] MEDS: AMIODARONE 100MG TABLET (PACERONE) PO SCH (08:51)
[2022-01-30] MEDS: busPIRone 5 MG TAB PO SCH ×2 (08:51→20:09)
[2022-01-30] MEDS: FEBUXOSTAT 40 MG TABLET (ULORIC) PO SCH (08:51)
[2022-01-30] MEDS: PANTOPRAZOLE 40MG VIAL IV SCH (08:51)
[2022-01-30] MEDS: (RENVELA) SEVELAMER **CARBONate** 800 MG TAB PO SCH ×3 (08:51→18:00)
[2022-01-30] MEDS ORDERED: ASPIRIN 81MG ENTERIC TABLET PO SCH (09:00)
[2022-01-30] MEDS ORDERED: HYDROMORPHONE HCL 0.5 MG/ 0.5 ML SYRINGE (J1170 PER 1) IV ONE (12:00)
[2022-01-30 12:06] LABS: FOLATE 5.1 NG/ML
[2022-01-30 12:11] LABS: CHOLESTEROL, BODY FLUID < 50 MG/DL (NOT ESTABLISHED); LDH, BODY FLUID 84 U/L (NOT ESTABLISHED); SOURCE, BODY FLUID CHOL THORACENTESIS; SOURCE, BODY FLUID GLUCOSE THORACENTESIS; SOURCE, BODY FLUID LDH THORACENTESIS; SOURCE, BODY FLUID TOT PROTEIN THORACENTESIS; TOTAL PROTEIN, BODY FLUID 2.3 G/DL (NOT ESTABLISHED)
[2022-01-30] MEDS: ACETYLCYSTEINE 10% 30 ML VIAL INH SCH ×2 (14:22→20:00)
[2022-01-30] MEDS: ALBUTEROL SULFATE 2.5 MG/0.5 ML INH NEB SOLN NEB SCH (15:21)
[2022-01-30] MEDS: ATORVASTATIN 10 MG TAB PO SCH (20:08)
[2022-01-30] MEDS: HYDROMORPHONE HCL 0.5 MG/ 0.5 ML SYRINGE (J1170 PER 1) IV PRN (20:10)
[2022-01-30] MEDS ORDERED: INSULIN LISPRO (NovoLOG) PER UNIT SC SCH (21:00)
[2022-01-30] MEDS ORDERED: APIXABAN 2.5 MG TAB (ELIQUIS) PO SCH (21:00)
[2022-01-30] MEDS: LIDOCAINE 4% CREAM 5GM (LMX4) TOP PRN (22:40)
[2022-01-31] VITALS (16 sets, daily range): BP systolic 76–110; BP diastolic 37–77
[2022-01-31] MEDS: HYDROMORPHONE HCL 0.5 MG/ 0.5 ML SYRINGE (J1170 PER 1) IV PRN (00:08)
[2022-01-31] MEDS: ALBUTEROL SULFATE 2.5 MG/0.5 ML INH NEB SOLN NEB SCH (00:24)
[2022-01-31] MEDS ORDERED: SODIUM CHLORIDE 0.9% 1000ML IV PRN (05:20)
[2022-01-31] MEDS ORDERED: NALOXONE INJ 0.4MG/1ML VIAL (J2310 PER 1MG) As Ordered ONE (06:38)
[2022-01-31] MEDS ORDERED: NALOXONE INJ 0.4MG/1ML VIAL (J2310 PER 1MG) IV STA (06:39)
[2022-01-31] MEDS ORDERED: INSULIN LISPRO (NovoLOG) PER UNIT SC SCH (07:30)
[2022-01-31] MEDS ORDERED: PANTOPRAZOLE 40MG TAB (PROTONIX) PO SCH (09:00)
== END 2022-01-31 06:50 | disposition expired | DRG 377 ==
LOC: M ICU 01-28 01:48
PROVIDERS: ADMIT Internal Medicine; ATTEND Internal Medicine
PROC: BW28YZZ Computerized Tomography (CT Scan) of Head using Other Contrast (ICD-10-PCS; principal; 2022-01-28)
PROC: 30233N1 Transfusion of Nonautologous Red Blood Cells into Peripheral Vein, Percutaneous Approach (ICD-10-PCS; 2022-01-28)
PROC: 5A1D70Z Performance of Urinary Filtration, Intermittent, Less than 6 Hours Per Day (ICD-10-PCS; 2022-01-28)
PROC: B246ZZZ Ultrasonography of Right and Left Heart (ICD-10-PCS; 2022-01-29)
PROC: 0DJ08ZZ Inspection of Upper Intestinal Tract, Via Natural or Artificial Opening Endoscopic (ICD-10-PCS; 2022-01-29)
PROC: 0W993ZZ Drainage of Right Pleural Cavity, Percutaneous Approach (ICD-10-PCS; 2022-01-30)
PROC: 5A09357 Assistance with Respiratory Ventilation, Less than 24 Consecutive Hours, Continuous Positive Airway Pressure (ICD-10-PCS; 2022-01-30)
DX: K92.2 Gastrointestinal hemorrhage, unspecified (principal); N18.6 End stage renal disease; I50.33 Acute on chronic diastolic (congestive) heart failure; I63.9 Cerebral infarction, unspecified; J18.9 Pneumonia, unspecified organism; J96.21 Acute and chronic respiratory failure with hypoxia; I13.2 Hypertensive heart and chronic kidney disease with heart failure and with stage 5 chronic kidney disease, or end stage renal disease; R47.01 Aphasia; I42.9 Cardiomyopathy, unspecified; N25.81 Secondary hyperparathyroidism of renal origin; L97.819 Non-pressure chronic ulcer of other part of right lower leg with unspecified severity; L97.829 Non-pressure chronic ulcer of other part of left lower leg with unspecified severity; J91.8 Pleural effusion in other conditions classified elsewhere; I48.20 Chronic atrial fibrillation, unspecified; J98.11 Atelectasis; D50.0 Iron deficiency anemia secondary to blood loss (chronic); Z66 Do not resuscitate; Z79.01 Long term (current) use of anticoagulants; Z95.0 Presence of cardiac pacemaker; F41.9 Anxiety disorder, unspecified; M10.9 Gout, unspecified; Z99.2 Dependence on renal dialysis; Z90.49 Acquired absence of other specified parts of digestive tract; Z79.4 Long term (current) use of insulin; Z79.899 Other long term (current) drug therapy; E11.22 Type 2 diabetes mellitus with diabetic chronic kidney disease; Z88.8 Allergy status to other drugs, medicaments and biological substances; Z91.048 Other nonmedicinal substance allergy status; R57.1 Hypovolemic shock; L30.4 Erythema intertrigo; G47.33 Obstructive sleep apnea (adult) (pediatric); Z99.81 Dependence on supplemental oxygen; I25.10 Atherosclerotic heart disease of native coronary artery without angina pectoris; K21.9 Gastro-esophageal reflux disease without esophagitis; G47.00 Insomnia, unspecified; E66.9 Obesity, unspecified; Z20.822 Contact with and (suspected) exposure to COVID-19; E87.5 Hyperkalemia; E78.5 Hyperlipidemia, unspecified; F32.A Depression, unspecified; M54.9 Dorsalgia, unspecified; G89.29 Other chronic pain; D63.1 Anemia in chronic kidney disease; I95.9 Hypotension, unspecified; I77.1 Stricture of artery; I36.1 Nonrheumatic tricuspid (valve) insufficiency; R47.81 Slurred speech; E07.9 Disorder of thyroid, unspecified; I27.20 Pulmonary hypertension, unspecified; Z86.16 Personal history of COVID-19